=== PATIENT | female | born 1990 | race Caucasian/White ===

== ENCOUNTER 2016-11-03 16:23 | Emergency (ER) | payer BC, OTHER ==
[~2016-11-03] VITALS: Ht 177.8 cm; Wt 94.0 kg
[~2016-11-03 16:23] MED LIST: ASPI-390 PO; BUSP15TA70 PO; INSDGI SC; LAMO100T PO; LAMO200T38 PO; NAPR-1169 PO; NRT25 PO; PEDICHW50 PO; PROM25TA16 PO; ZONI100C2 PO
[2016-11-03 16:35] VITALS: TEMP 36.8; Ht 177.8 cm; Wt 94.0 kg
[2016-11-03] MEDS ORDERED: PNC/500 PO (16:57)
[2016-11-03] MEDS ORDERED: ESCI1TAB6 PO (16:59)
[2016-11-03] MEDS ORDERED: ONDANSETRON INJ 2 MG/ML 2 ML VIAL IV STA (17:20)
[2016-11-03] MEDS ORDERED: MoRPHine SULFATE 4 MG/ML 1 ML CARP\\VIAL IV STA (17:20)
[2016-11-03] MEDS ORDERED: XYLOCAINE 1%/SOD BICARB 20 ML VIAL INFIL STA (17:26)
[2016-11-03] MEDS ORDERED: HMLI SC (17:26)
--- NOTE | 2016-11-03 17:42 | EMERGENCY ROOM VISIT NOTE ---
History First contact with patient: 16:51 Chief Complaint: WOUND INFECTION Stated Complaint: CYST ON BOTTOM OF SPINE, VERY PAINFUL Nursing Triage Summary: abcess on the buttock History of Present Illness The patient is a 26 year old female who presents to the Emergency Room via private vehicle with complaints of "cyst on one of spine, very painful". The patient states that 3 days ago she started with a small quarter-sized reddened region on her tailbone region. She has no previous history of cysts. She tried hot compress minimal relief. She went to acute care yesterday and was prescribed Augmentin but has not picked it up yet. She's been taking penicillin from a previous infection. She's been trying ibuprofen and Tylenol with minimal relief. The pain has worsened over the last day and believes it may need to be drained at this point. She rates the pain as a 9/10 and worse with sitting. She denies any fevers, chills, nausea, vomiting, diarrhea. Review of Systems A complete 10-point Review of Systems was discussed with the patient, with pertinent positives and negatives listed in the History of Present Illness. All remaining Review of Systems questions can be considered negative unless otherwise specified. Past Medical/Surgical History Medical Problems: (1) Diabetes (2) Migraines (3) Seizures Surgical Problems: (1) H/O: Family History FH: multiple sclerosis Social History Smoking Status: Never Smoker Drug Use: none Marital Status: Housing Status: lives with significant other Occupation Status: employed Current/Historical Medications Scheduled Iitnpyj-Gmghfieskztwd-Znkbsyii (Excedrin Migraine), 1 TAB PO UD Cephalexin Monohydrate (Keflex), 500 MG PO QID Escitalopram Oxalate (Lexapro), 5 MG PO DAILY Insulin Glargine (Lantus), 22 UNITS SC QPM Insulin Lispro (Humalog), 0 SC WM Lamotrigine (Lamictal), 400 MG PO BID Lamotrigine (Lamictal), 100 MG PO BID Naproxen (Naprosyn), 500 MG PO q 4-6 hrs prn Nortriptyline HCl (Nortriptyline HCl), 75 MG PO DAILY Penicillin V Potassium (Penicillin V Potassium), 500 MG PO QID Sulfa/Trimethoprim (Bactrim Ds 800MG/160MG), 1 TAB PO BID Zonisamide (Zonegran), 300 MG PO DAILY Scheduled PRN Promethazine HCl (Promethazine HCl), 25 MG PO Q4H PRN for Nausea or Vomiting Allergies Coded Allergies: Fluoxetine (Verified Allergy, Mild, HIVES, 11/12/15) Sertraline (Verified Allergy, Mild, HIVES, 11/12/15) Physical Exam Vital Signs Date Time Temp Pulse Resp B/P Pulse Ox O2 Delivery O2 Flow Rate FiO2 11/03/16 19:11 98 16 107/80 98 Room Air 11/03/16 16:35 36.8 102 20 134/75 99 Room Air Physical Exam VITAL SIGNS - Vital signs and nursing notes were reviewed. Patient is afebrile , normotensive, she is tachycardic at a rate of 102 bpm this saturating on room air 99%. GENERAL -26-year-old female appearing her stated age who is in no acute distress. Communicates well with provider and answers questions appropriately. SKIN - Without rashes. There is a small localized area of erythema at the superior portion of the gluteal region that is midline. This region is slightly fluctuant. HEAD - NC/AT. EYES - PERRL with EOMI bilaterally. Sclera anicteric. Palpebral conjunctiva pink and moist with no injection noted. EARS - No deformities of external structures noted on gross examination bilaterally. NOSE - Midline and without cyanosis. No epistaxis or purulent drainage noted. Septum midline without deviation or septal hematoma noted. MOUTH/OROPHARYNX - Without perioral cyanosis. LUNGS - Chest wall symmetric without accessory muscle use, intercostals retractions, or central cyanosis. Normal vesicular breath sounds CTA B/L. No wheezes, rales, or rhonchi appreciated. CARDIAC - RRR with S1/S2. No murmur, rubs, or gallops appreciated. Medical Decision & Procedures Laboratory Results 11/03/16 17:30 Red Blood Count 4.00, Mean Corpuscular Volume 90.3, Mean Corpuscular Hemoglobin 31.8, Mean Corpuscular Hemoglobin Concent 35.2, Mean Platelet Volume 9.2, Neutrophils (%) (Auto) 75.4, Lymphocytes (%) (Auto) 16.0, Monocytes (%) (Auto) 8.4, Eosinophils (%) (Auto) 0.0, Basophils (%) (Auto) 0.0, Neutrophils # (Auto) 6.64, Lymphocytes # (Auto) 1.41, Monocytes # (Auto) 0.74, Eosinophils # (Auto) 0.00, Basophils # (Auto) 0.00 11/03/16 17:30 Test 11/03/16 17:30 White Blood Count 8.81 K/uL (4.8-10.8) Red Blood Count 4.00 M/uL (4.2-5.4) Hemoglobin 12.7 g/dL (12.0-16.0) Hematocrit 36.1 % (37-47) Mean Corpuscular Volume 90.3 fL (80-100) Mean Corpuscular Hemoglobin 31.8 pg (25-34) Mean Corpuscular Hemoglobin Concent 35.2 g/dl (32-36) Platelet Count 319 K/uL (130-400) Mean Platelet Volume 9.2 fL (7.4-10.4) Neutrophils (%) (Auto) 75.4 % Lymphocytes (%) (Auto) 16.0 % Monocytes (%) (Auto) 8.4 % Eosinophils (%) (Auto) 0.0 % Basophils (%) (Auto) 0.0 % Neutrophils # (Auto) 6.64 K/uL (1.4-6.5) Lymphocytes # (Auto) 1.41 K/uL (1.2-3.4) Monocytes # (Auto) 0.74 K/uL (0.11-0.59) Eosinophils # (Auto) 0.00 K/uL (0-0.5) Basophils # (Auto) 0.00 K/uL (0-0.2) RDW Standard Deviation 39.6 fL (36.4-46.3) RDW Coefficient of Variation 12.1 % (11.5-14.5) Immature Granulocyte % (Auto) 0.2 % Immature Granulocyte # (Auto) 0.02 K/uL (0.00-0.02) Anion Gap 7.0 mmol/L (3-11) Est Creatinine Clear Calc Drug Dose 111.7 ml/min Estimated GFR () 96.4 Estimated GFR (Non- 83.1 BUN/Creatinine Ratio 12.9 (10-20) Calcium Level 8.7 mg/dl (8.5-10.1) Total Bilirubin 0.2 mg/dl (0.2-1) Aspartate Amino Transf (AST/SGOT) 12 U/L (15-37) Alanine Aminotransferase (ALT/SGPT) 27 U/L (12-78) Alkaline Phosphatase 84 U/L (45-117) Total Protein 7.3 gm/dl (6.4-8.2) Albumin 3.9 gm/dl (3.4-5.0) Globulin 3.4 gm/dl (2.5-4.0) Albumin/Globulin Ratio 1.1 (0.9-2) Medications Administered Medications (Trade) Dose Ordered Sig/Jewels Route Start Time Stop Time Status Last Admin Dose Admin Morphine Sulfate (MoRPHine SULFATE INJ) 4 mg NOW STAT IV 11/03/16 17:20 11/03/16 17:22 DC 11/03/16 17:51 4 MG Ondansetron HCl (Zofran Inj) 4 mg NOW STAT IV 11/03/16 17:20 11/03/16 17:22 DC 11/03/16 17:51 4 MG Cephalexin Monohydrate (Keflex Cap) 500 mg NOW STAT PO 11/03/16 17:49 11/03/16 17:51 DC 11/03/16 19:14 500 MG Trimethoprim/ Sulfamethoxazole (Septra Ds 800/ 160MG Tab) 1 tab NOW STAT PO 11/03/16 17:49 11/03/16 17:51 DC 11/03/16 19:14 1 TAB Cephalexin Monohydrate (Keflex 500MG Home Pack) 1 homepack NOW STAT PO 11/03/16 18:55 11/03/16 18:56 DC 11/03/16 19:14 1 HOMEPACK Trimethoprim/ Sulfamethoxazole (Sulfameth/ Trimeth Ds 800/ 160MG Home Pack) 1 homepack UD STAT PO 11/03/16 18:55 11/03/16 18:56 DC 11/03/16 19:14 1 HOMEPACK Oxycodone HCl (Roxicodone Immediate Rel 5MG Home Pack) 1 homepack UD STAT PO 11/03/16 18:56 11/03/16 18:57 DC 11/03/16 19:14 1 HOMEPACK Medical Decision Patient was seen and evaluated as above. After obtaining a thorough history and physical examination IV access was obtained and a CBC, CMP were obtained secondary to subjective and objective examination findings. CBC revealed no leukocytosis but slight anemia. 4 I was slightly high and AST was slightly low. No evidence of kidney or liver failure. The patient is afebrile with no leukocytosis. Clinically she has a pilonidal cyst that may be an abscess. Patient wanted pain medications prior to initiation of drainage therefore morphine and Zofran were provided. Benefits versus risks of incision and drainage were discussed with the patient. She consented. A timeout was performed and the region was prepped with Betadine. It was sterilely draped. 1 % buffered lidocaine was used to create a wheel overlying the region of induration. An 11 blade scalpel was then used to create a 1 cm linear laceration along the region. Pressure was applied and a large amount of purulent pus was expelled. This was cultured and sent to the lab. The region was then opened up further using blunt dissection. Patient tolerated this well. The region was packed with sterile packing. This was secured with tape. Region was then dressed with to Telfa pads and an abdominal pad. This was secured in place with tape. Patient was given Keflex and Bactrim here with the remainder of the prescription sent home. She was given a home pack as her pharmacy was closed. She is to take Keflex and Bactrim for 10 days. She is to return in 48 hours for a recheck of the region. Total induration/erythema is approximately 3 cm x 3 cm. She was educated upon worrisome symptoms in which to return, had questions answered prior to discharge and was discharged home in good condition. It is to note that the patient's glucose levels had been well maintained as per patient. She was given 1 OxyIR home pack for pain. In the evaluation and treatment of this patient the following differential diagnoses were entertained: Pilonidal abscess, phlegmon, cellulitis, among others. [place] Drug Monitoring Program Search Results: patient reviewed within database, no issues identified Impression Primary Impression: Pilonidal abscess Departure Information Dispostion Home / Self-Care Condition GOOD Prescriptions Sulfa/Trimethoprim (Bactrim Ds 800MG/160MG) Tab 1 TAB PO BID for 9 Days, #18 TAB Prov: Abdirizak Dsouza PA-C 11/03/16 Cephalexin Monohydrate (Keflex) 500 Mg Cap 500 MG PO QID for 9 Days, #36 CAP Prov: Abdirizak Dsouza PA-C 11/03/16 Referrals Dayana Moeller C.R.N.P (PCP) Patient Instructions [facility] Additional Instructions You were seen in the emergency department for a pilonidal abscess. You have received pain medication today which makes illegal to drive today. You have been given a short-term supply of OxyIR. This is a pain medication and you may not drive while on this medication. Your blood work here revealed a slightly anemic with a blood cell count of 4.0. Please follow up with your family doctor regarding this. You are AST was low at 12 and the chloride was elevated at 108. These are not significant findings but it is suggested to follow-up with her family doctor regarding this. You have been given your first dose here as well as a 24-hour supply for both. The remaining 9 days was sent to your pharamcy. Keflex. This is 500 mg 4 times daily for 10 days. You have also been prescribed Bactrim. This is one tablet twice daily for 10 days. Both of these are antibiotics. Please return here to the emergency department in 48 hours for recheck or sooner if you develop any fevers or concerning symptoms. Please leave the packing in place until you're here in [address] an absorbent pad over this region as it will drain. Please take care when showering so as to not soak this area. You may use Tylenol and ibuprofen according to package insert for pain. Please follow up with her family doctor from today's visit. Please return to emergency department with any new/concerning symptoms.
[2016-11-03] MEDS ORDERED: SULFAMETHOXAZOLE/TRIMETHOPRIM DS 800/160MG TAB PO STA (17:49)
[2016-11-03] MEDS ORDERED: CEPHALEXIN MONOHYDRATE 250 MG CAP PO STA (17:49)
[2016-11-03 17:50] LABS: COMPLETE YES; HEMATOCRIT 36.1 % (37-47); IG% 0.2 %; LYMPH ABS # 1.41 K/uL (1.2-3.4); MEAN CELL VOLUME 90.3 fL (80-100); MEAN CORPUSCULAR HEMOGLOBIN 31.8 pg (25-34); MEAN CORPUSCULAR HGB CONC 35.2 g/dl (32-36); MEAN PLATELET VOLUME 9.2 fL (7.4-10.4); MONO % 8.4 %; NEUT % 75.4 %; PLATELET COUNT 319 K/uL (130-400); WHITE BLOOD COUNT 8.81 K/uL (4.8-10.8)
[2016-11-03 18:07] LABS: BUN/CREATININE RATIO 12.9 (10-20); CALCIUM 8.7 mg/dl (8.5-10.1); CREATININE 0.94 mg/dl (0.60-1.20); POTASSIUM 3.8 mmol/L (3.5-5.1)
[2016-11-03 18:10] LABS: ALB/GLOB RATIO 1.1 (0.9-2)
[2016-11-03] MEDS ORDERED: CEPHALEXIN 500MG HOME PACK 1 EA BTL PO STA (18:55)
[2016-11-03] MEDS ORDERED: SEPTRA DS HOME PACK 1 EA VIAL PO STA (18:55)
[2016-11-03] MEDS ORDERED: OXYCODONE IR HOME PACK PO STA (18:56)
[2016-11-03] MEDS ORDERED: CEPH500C PO (18:57)
[2016-11-03] MEDS ORDERED: SULF800T23 PO (18:57)
[2016-11-03 19:11] VITALS: BP 107/80; PULSE 98; O2SAT 98
== END 2016-11-03 19:16 | disposition home or self-care (01) ==
LOC: C.EDB 16:25 → C.EDD 19:16
DX: L05.01 Pilonidal cyst with abscess (principal); E11.9 Type 2 diabetes mellitus without complications; G43.909 Migraine, unspecified, not intractable, without status migrainosus; Z79.4 Long term (current) use of insulin; Z79.899 Other long term (current) drug therapy

== ENCOUNTER 2016-11-05 12:26 | Emergency (ER) | payer OTHER ==
[~2016-11-05] VITALS: Ht 177.8 cm; Wt 93.4 kg
[~2016-11-05 12:26] MED LIST changes: -BUSP15TA70 PO; +CEPH500C PO; +ESCI1TAB6 PO; +HMLI SC; -PEDICHW50 PO; +PNC/500 PO; +SULF800T23 PO
[2016-11-05 12:32] VITALS: TEMP 36.8; Ht 177.8 cm; Wt 93.4 kg
[2016-11-05 12:58] VITALS: BP 110/73; PULSE 91; O2SAT 98
--- NOTE | 2016-11-05 21:14 | EMERGENCY ROOM VISIT NOTE ---
ED Visit Note First contact with patient: 12:37 CHIEF COMPLAINT: Abscess recheck. HISTORY OF PRESENT ILLNESS: Ms. Esteves is a 26-year-old white female who ambulates into the ED requesting recheck of her abscess and packing removal from an I&D procedure that was performed 2 days ago. She reports since the procedure she's been feeling much better. She has not been having any pain, swelling, redness or drainage from the wound. She has not perceived any fevers. PHYSICAL EXAM: Vital Signs: Date Time Temp Pulse Resp B/P Pulse Ox O2 Delivery O2 Flow Rate FiO2 11/05/16 12:58 91 18 110/73 98 11/05/16 12:32 36.8 91 18 110/73 98 Room Air GENERAL: 26 year-old white female in no acute distress, nontoxic-appearing, afebrile and hemodynamically stable. NEUROLOGICAL: Awake, alert and oriented. Answering questions appropriately and following commands. Normal gait. Good hand eye coordination. SKIN: Superior Gluteal Region: Obvious pilonidal abscess I&D procedure was performed. There is no local erythema, edema, lymphangitis. The area is still mildly indurated but is not fluctuant. The packing was removed and a small amount of purulent drainage was expressed. A bandage was placed over the wound. ED COURSE: Patient is assessed as noted above. As previously noted packing was easily removed. I did review the patient's microbiology report and no bacteria was cultured from her sample. Patient was educated about tonight's findings and instructed on her treatment plan; she verbalizes understanding and agreement with this plan. DISPOSITION: Patient discharged home in stable condition. CLINICAL IMPRESSION: Well healing abscess. Packing removal. PLAN: Continue antibiotics until completed. Follow-up with family doctor at the end of the antibiotics for recheck. Continue to watch the area for increasing signs of infection. Return to the ED for increasing signs of infection or any new/concerning symptoms.
== END 2016-11-05 12:59 | disposition home or self-care (01) ==
LOC: C.EDB 12:29 → C.EDD 12:59
DX: L02.31 Cutaneous abscess of buttock (principal); Z48.00 Encounter for change or removal of nonsurgical wound dressing

== ENCOUNTER 2017-07-20 11:29 | Emergency (ER) | payer OTHER ==
[~2017-07-20] VITALS: Ht 177.8 cm; Wt 84.0 kg
[~2017-07-20 11:29] MED LIST changes: -CEPH500C PO; -SULF800T23 PO
[2017-07-20 11:34] VITALS: TEMP 37; Ht 177.8 cm; Wt 84.0 kg
[2017-07-20] MEDS ORDERED: ZONI100C39 PO (12:25)
[2017-07-20] MEDS ORDERED: LAMO200T38 PO ×2 (12:25)
[2017-07-20] MEDS ORDERED: INSDGI SC (12:25)
[2017-07-20] MEDS ORDERED: INSU100I SC (12:25)
[2017-07-20] MEDS ORDERED: LAMO100T PO (12:25)
[2017-07-20 13:05] LABS: BASO % 0.1 %; BASO ABS # 0.01 K/uL (0-0.2); COMPLETE YES; HEMATOCRIT 39.7 % (37-47); IG% 0.4 %; LYMPH % 5.3 %; LYMPH ABS # 0.63 K/uL (1.2-3.4); MEAN CORPUSCULAR HEMOGLOBIN 32.5 pg (25-34); MEAN CORPUSCULAR HGB CONC 36.5 g/dl (32-36); MEAN PLATELET VOLUME 10.1 fL (7.4-10.4); MONO % 5.5 %; NEUT % 88.7 %; PLATELET COUNT 292 K/uL (130-400); RED BLOOD COUNT 4.46 M/uL (4.2-5.4)
[2017-07-20 13:09] LABS: PARTIAL THROMBOPLASTIN RATIO 0.9; PROTHROMBIN TIME (PATIENT) 10.3 SECONDS (9.0-12.0)
[2017-07-20 13:13] LABS: BUN/CREATININE RATIO 20.4 (10-20); CALCIUM 8.9 mg/dl (8.5-10.1); CREATININE 1.2 mg/dl (0.60-1.20); MAGNESIUM 2.4 mg/dl (1.8-2.4); POTASSIUM 3.8 mmol/L (3.5-5.1)
[2017-07-20] MEDS ORDERED: ACETAMINOPHEN 325 MG TAB PO STA (13:13)
[2017-07-20] MEDS ORDERED: LORAZEPAM 1 MG TAB PO STA (13:13)
[2017-07-20 13:16] LABS: PREG INTERNAL NEGATIVE QC NEG CLEAR BACKGROUND; PREG INTERNAL POSITIVE QC POS CONTROL LINE
[2017-07-20 13:24] LABS: BETA-HYDROXYBUTYRATE 12.08 mg/dL (0.2-2.81)
[2017-07-20] MEDS ORDERED: NovoLOG PER UNIT CHARGE SC STA (13:29)
[2017-07-20 13:34] LABS: URINE APPEARANCE CLOUDY (CLEAR); URINE BILIRUBIN NEG (NEG); URINE COLOR YELLOW; URINE EPITHELIAL CELL AUTO >30 /lpf (0-5); URINE NITRITE NEG (NEG); URINE SPECIFIC GRAVITY 1.035 (1.000-1.030); UROBILINOGEN NEG (NEG)
--- NOTE | 2017-07-20 13:36 | DIAGNOSTIC IMAGING REPORT ---
HEAD WITHOUT CONTRAST (CT) CLINICAL HISTORY: 27 years-old Female with eval for bleed. Acute seizure. Initial exam. TECHNIQUE: Multiple axial CT images of the head were obtained without contrast. A dose lowering technique was utilized adhering to the principles of ALARA. CT DOSE: 991.30 mGy.cm COMPARISON: CT head 02/25/2015. FINDINGS: No acute intracranial hemorrhage, midline shift, mass, large territorial ischemia or abnormal extra-axial collection. The calvarium is intact. The paranasal sinuses, mastoid air cells, and middle ear cavities are clear. IMPRESSION: No acute intracranial abnormality. The above report was generated using voice recognition software. It may contain grammatical, syntax or spelling errors. Electronically signed by: Juaquin Angel M.D. 07/20/2017 1:35 PM Dictated Date/Time: 07/20/2017 1:33 PM
[2017-07-20 13:38] LABS: MANUAL MICROSCOPIC REQUIRED? NO; REVIEW REQ? NO
--- NOTE | 2017-07-20 13:42 | DIAGNOSTIC IMAGING REPORT ---
CERVICAL SPINE W/O CLINICAL HISTORY: 27 years-old Female with eval for fx. Acute neck injury status post seizure COMPARISON: CT head and maxillofacial same day, chest radiographs to 11/25/2015. TECHNIQUE: Multiple axial CT images of the cervical spine were obtained without contrast. A dose lowering technique was utilized adhering to the principles of ALARA. FINDINGS: There is straightening of the normal cervical lordosis. Mild anterior wedging of 25% is seen within the C7 vertebral body with central depression suggesting a Schmorl's node. Mild intervertebral disc space narrowing is also seen posteriorly at C6-C7 with small posterior disc osteophyte complex. No retropulsion at this level. No high-grade central canal or foraminal narrowing. Vertebral body heights are otherwise well-maintained without additional abnormality identified. Mastoid air cells and middle ear cavities are clear. Lung apices appear clear. Soft tissues are unremarkable. IMPRESSION: 1. 25% anterior endplate compression with Schmorl's node involving the superior endplate of C7 is noted without retropulsion, technically this finding is age indeterminate without comparison however appears chronic. Mild intervertebral disc space narrowing is seen posteriorly at C6-C7 with small disc osteophyte complex. 2. No high-grade central canal or foraminal narrowing. 3. Straightening of the normal cervical lordosis may be positional or related to paraspinal muscle spasm. The above report was generated using voice recognition software. It may contain grammatical, syntax or spelling errors. Electronically signed by: Juaquin Angel M.D. 07/20/2017 1:41 PM Dictated Date/Time: 07/20/2017 1:35 PM
--- NOTE | 2017-07-20 13:43 | DIAGNOSTIC IMAGING REPORT ---
MAXILLOFACIAL CT CT DOSE: HISTORY: Seizures. Fall. TECHNIQUE: Multiaxial CT images of the maxillofacial region were performed and reformatted in the coronal plane without the use of contrast. A dose lowering technique was utilized adhering to the principles of ALARA. COMPARISON: None. FINDINGS: The visualized cervical spine, skull base, pterygoid plates, nasal bones, lamina papyracea, orbital floors, mandible, and zygomatic arches are intact. No fractures. The orbits are unremarkable. Right facial soft tissue swelling. IMPRESSION: No fractures within the maxillofacial region. Right facial soft tissue swelling. Electronically signed by: Joshua Nolan M.D. 07/20/2017 1:42 PM Dictated Date/Time: 07/20/2017 1:34 PM
[2017-07-20] MEDS ORDERED: XYLOCAINE 1%/SOD BICARB 20 ML VIAL INFIL ONE (16:30)
[2017-07-20] MEDS ORDERED: AMOX875T PO (17:01)
[2017-07-20 17:15] VITALS: BP 108/59; PULSE 96; O2SAT 100
--- NOTE | 2017-07-20 18:47 | EMERGENCY ROOM VISIT NOTE ---
History Report prepared by Marta: Karli Mejia Under the Supervision of: Dr. Can Noble M.D. First contact with patient: 12:40 Chief Complaint: SEIZURE Stated Complaint: SEIZURE DISORDER, 3 SEIZURES IN 12 HOURS Nursing Triage Summary: Pt presents with dad who reports hx of seizures. Hasn't had a seizure in 3 yrs. Has had 3 seizures in the past 14 hrs, last seizure was 3 hrs ago. H/A, nausea/vomiting, hit right side of face, bit side of tongue. History of Present Illness The patient is a 27 year old female who presents to the Emergency Room with complaints of multiple episodes of seizures since 10pm last night. The patient has a history of epilepsy and takes Lamictal and Zonegran. She has not had a seizure in 3 years. She denies any recent changes to her medications. Last night around 10pm the patient had a seizure, which her father states was a tonic -clonic seizure. This is typical for her seizures. She was seated and did not injure herself at that time. Around 2am the patient had another seizure and she fell and hit her face against a dresser. She also bit her tongue. This morning around 8:30am the patient had a third seizure. Each seizure lasted for about 2 minutes and father states that were all full tonic-clonic seizures. She was confused after each seizure but was not incontinent of urine or stool. The patient states that she has been nauseated and has been vomiting since her seizures. She also reports a headache and some neck pain that she rates as a 7/ 10 in severity. They called her neurologist's office (Dr. Mckeon) and were told to come to the ED for further evaluation. The patient did not take her seizure medications last night after the first seizure. She did take two doses today after her third seizure. She threw up her Lamictal 400 mg but did take 400 mg after that. She did keep down her Zonegran. The patient denies dental pain, chest pain, abdominal pain, diarrhea, urinary symptoms, hip pain, extremity pain , and chance of . Her immunizations are up to date. Source of History: patient Onset: last night Position: other (global) Symptom Intensity: 7/10 Quality: other (seizures - tonic-clonic) Timing: other (multiple episodes) Associated Symptoms: + headache, + neck pain, + nausea, + vomiting, No chest pain, No abdominal pain, No diarrhea, No urinary symptoms Review of Systems See HPI for pertinent positives & negatives. A total of 10 systems reviewed and were otherwise negative. Past Medical & Surgical Medical Problems: (1) Diabetes (2) Migraines (3) Seizures Surgical Problems: (1) H/O: Family History FH: multiple sclerosis Social History Smoking Status: Never Smoker Drug Use: none Marital Status: Housing Status: lives with significant other Occupation Status: employed Current/Historical Medications Scheduled Amoxicillin & Pot Clavulanate (Augmentin 875-125 mg), 875 MG PO BID Insulin Glargine (Lantus), 24 UNITS SC DAILY Insulin Lispro (Human) (Humalog), SC UD Lamotrigine (Lamictal), 200 MG PO QAM Lamotrigine (Lamictal), 600 MG PO QPM Lamotrigine (Lamictal), 100 MG PO QAM Zonisamide (Zonegran), 300 MG PO QPM Allergies Coded Allergies: Fluoxetine (Verified Allergy, Mild, HIVES, 07/20/17) Sertraline (Verified Allergy, Mild, HIVES, 07/20/17) Physical Exam Vital Signs Date Time Temp Pulse Resp B/P (MAP) Pulse Ox O2 Delivery O2 Flow Rate FiO2 07/20/17 17:15 96 16 108/59 100 Room Air 07/20/17 16:43 92 20 108/73 100 Room Air 07/20/17 15:15 82 18 102/52 100 Room Air 07/20/17 14:04 90 16 115/64 100 Room Air 07/20/17 13:14 93 18 117/70 100 Room Air 07/20/17 12:18 79 07/20/17 11:34 37.0 93 18 117/69 94 Room Air Physical Exam Constitutional: Vital signs reviewed. Eyes: Pupils are equal round reactive to light. Conjunctiva are noninjected. ENT: Pharynx is clear without erythema or exudate. Mucous membranes are moist. 4 cm laceration to the corner of the mouth on the right side extending into the lower lip past the vermilion border. The laceration over the lip portion demonstrates skin avulsion and a small portion of devitalized tissue. Bruising and tenderness over the right cheek. Mild midline tenderness to the cervical spine without step-off or deformity. Respiratory: Clear to auscultation bilaterally. Breath sounds are equal bilaterally. Cardiovascular: Regular rate and rhythm. No rubs or gallops. GI: Soft, nondistended and nontender. Bowel sounds are present. Musculoskeletal: No peripheral edema. No lower extremity tenderness. Integumentary: No cyanosis. Neurologic: The patient is awake and alert. Cranial nerves II-XII are intact. Motor is 5 out of 5 all extremities. Sensation is intact to light touch all extremities. Normal speech. No pronator drift. Psychiatric: Normal affect. Medical Decision & Procedures ER Provider Diagnostic Interpretation: Radiology results as stated below per my review and the radiologist's interpretation: MAXILLOFACIAL CT CT DOSE: HISTORY: Seizures. Fall. TECHNIQUE: Multiaxial CT images of the maxillofacial region were performed and reformatted in the coronal plane without the use of contrast. A dose lowering technique was utilized adhering to the principles of ALARA. COMPARISON: None. FINDINGS: The visualized cervical spine, skull base, pterygoid plates, nasal bones, lamina papyracea, orbital floors, mandible, and zygomatic arches are intact. No fractures. The orbits are unremarkable. Right facial soft tissue swelling. IMPRESSION: No fractures within the maxillofacial region. Right facial soft tissue swelling. Electronically signed by: Joshua Nolan M.D. 07/20/2017 1:42 PM Dictated Date/Time: 07/20/2017 1:34 PM HEAD WITHOUT CONTRAST (CT) CLINICAL HISTORY: 27 years-old Female with eval for bleed. Acute seizure. Initial exam. TECHNIQUE: Multiple axial CT images of the head were obtained without contrast. A dose lowering technique was utilized adhering to the principles of ALARA. CT DOSE: 991.30 mGy.cm COMPARISON: CT head 02/25/2015. FINDINGS: No acute intracranial hemorrhage, midline shift, mass, large territorial ischemia or abnormal extra-axial collection. The calvarium is intact. The paranasal sinuses, mastoid air cells, and middle ear cavities are clear. IMPRESSION: No acute intracranial abnormality. The above report was generated using voice recognition software. It may contain grammatical, syntax or spelling errors. Electronically signed by: Juaquin Angel M.D. 07/20/2017 1:35 PM Dictated Date/Time: 07/20/2017 1:33 PM CERVICAL SPINE W/O CLINICAL HISTORY: 27 years-old Female with eval for fx. Acute neck injury status post seizure COMPARISON: CT head and maxillofacial same day, chest radiographs to 11/25/2015. TECHNIQUE: Multiple axial CT images of the cervical spine were obtained without contrast. A dose lowering technique was utilized adhering to the principles of ALARA. FINDINGS: There is straightening of the normal cervical lordosis. Mild anterior wedging of 25% is seen within the C7 vertebral body with central depression suggesting a Schmorl's node. Mild intervertebral disc space narrowing is also seen posteriorly at C6-C7 with small posterior disc osteophyte complex. No retropulsion at this level. No high-grade central canal or foraminal narrowing. Vertebral body heights are otherwise well-maintained without additional abnormality identified. Mastoid air cells and middle ear cavities are clear. Lung apices appear clear. Soft tissues are unremarkable. IMPRESSION: 1. 25% anterior endplate compression with Schmorl's node involving the superior endplate of C7 is noted without retropulsion, technically this finding is age indeterminate without comparison however appears chronic. Mild intervertebral disc space narrowing is seen posteriorly at C6-C7 with small disc osteophyte complex. 2. No high-grade central canal or foraminal narrowing. 3. Straightening of the normal cervical lordosis may be positional or related to paraspinal muscle spasm. The above report was generated using voice recognition software. It may contain grammatical, syntax or spelling errors. Electronically signed by: Juaquin Angel M.D. 07/20/2017 1:41 PM Dictated Date/Time: 07/20/2017 1:35 PM Laboratory Results 07/20/17 11:45 Red Blood Count 4.46, Mean Corpuscular Volume 89.0, Mean Corpuscular Hemoglobin 32.5, Mean Corpuscular Hemoglobin Concent 36.5, Mean Platelet Volume 10.1, Neutrophils (%) (Auto) 88.7, Lymphocytes (%) (Auto) 5.3, Monocytes (%) (Auto) 5.5, Eosinophils (%) (Auto) 0.0, Basophils (%) (Auto) 0.1, Neutrophils # (Auto) 10.65, Lymphocytes # (Auto) 0.63, Monocytes # (Auto) 0.66, Eosinophils # (Auto) 0.00, Basophils # (Auto) 0.01 07/20/17 11:45 Test 07/20/17 11:45 07/20/17 12:50 07/20/17 15:34 07/20/17 15:41 White Blood Count 12.00 K/uL (4.8-10.8) Red Blood Count 4.46 M/uL (4.2-5.4) Hemoglobin 14.5 g/dL (12.0-16.0) Hematocrit 39.7 % (37-47) Mean Corpuscular Volume 89.0 fL (80-100) Mean Corpuscular Hemoglobin 32.5 pg (25-34) Mean Corpuscular Hemoglobin Concent 36.5 g/dl (32-36) Platelet Count 292 K/uL (130-400) Mean Platelet Volume 10.1 fL (7.4-10.4) Neutrophils (%) (Auto) 88.7 % Lymphocytes (%) (Auto) 5.3 % Monocytes (%) (Auto) 5.5 % Eosinophils (%) (Auto) 0.0 % Basophils (%) (Auto) 0.1 % Neutrophils # (Auto) 10.65 K/uL (1.4-6.5) Lymphocytes # (Auto) 0.63 K/uL (1.2-3.4) Monocytes # (Auto) 0.66 K/uL (0.11-0.59) Eosinophils # (Auto) 0.00 K/uL (0-0.5) Basophils # (Auto) 0.01 K/uL (0-0.2) RDW Standard Deviation 38.4 fL (36.4-46.3) RDW Coefficient of Variation 11.9 % (11.5-14.5) Immature Granulocyte % (Auto) 0.4 % Immature Granulocyte # (Auto) 0.05 K/uL (0.00-0.02) Prothrombin Time 10.3 SECONDS (9.0-12.0) Prothromb Time International Ratio 1.0 (0.9-1.1) Activated Partial Thromboplast Time 24.6 SECONDS (21.0-31.0) Partial Thromboplastin Ratio 0.9 Anion Gap 8.0 mmol/L (3-11) Est Creatinine Clear Calc Drug Dose 82.3 ml/min Estimated GFR () 71.2 Estimated GFR (Non- 61.5 BUN/Creatinine Ratio 20.4 (10-20) Calcium Level 8.9 mg/dl (8.5-10.1) Magnesium Level 2.4 mg/dl (1.8-2.4) Total Bilirubin 0.6 mg/dl (0.2-1) Direct Bilirubin 0.1 mg/dl (0-0.2) Aspartate Amino Transf (AST/SGOT) 29 U/L (15-37) Alanine Aminotransferase (ALT/SGPT) 38 U/L (12-78) Alkaline Phosphatase 107 U/L (45-117) Total Protein 8.1 gm/dl (6.4-8.2) Albumin 4.6 gm/dl (3.4-5.0) Beta-Hydroxybutyric Acid 12.08 mg/dL (0.2-2.81) Human Chorionic Gonadotropin, Qual NEG (NEG) Urine Color YELLOW Urine Appearance CLOUDY (CLEAR) Urine pH 5.0 (4.5-7.5) Urine Specific Ponce 1.035 (1.000-1.030) Urine Protein NEG (NEG) Urine Glucose (UA) 3+ (NEG) Urine Ketones 2+ (NEG) Urine Occult Blood NEG (NEG) Urine Nitrite NEG (NEG) Urine Bilirubin NEG (NEG) Urine Urobilinogen NEG (NEG) Urine Leukocyte Esterase NEG (NEG) Urine WBC (Auto) 1-5 /hpf (0-5) Urine RBC (Auto) 0-4 /hpf (0-4) Urine Hyaline Casts (Auto) 1-5 /lpf (0-5) Urine Epithelial Cells (Auto) >30 /lpf (0-5) Urine Bacteria (Auto) NEG (NEG) Urine Test NEG (NEG) Bedside Glucose 279 mg/dl (70-90) Laboratory results as reviewed by me. Medications Administered Medications (Trade) Dose Ordered Sig/Jewels Route Start Time Stop Time Status Last Admin Dose Admin Lamotrigine (Lamictal Tab) 400 mg NOW STAT PO 07/20/17 13:13 07/20/17 13:15 DC 07/20/17 13:55 400 MG Lorazepam (Ativan Tab) 1 mg NOW STAT PO 07/20/17 13:13 07/20/17 13:15 DC 07/20/17 13:54 1 MG Acetaminophen (Tylenol Tab) 650 mg NOW STAT PO 07/20/17 13:13 07/20/17 13:15 DC 07/20/17 13:55 650 MG Insulin Aspart (novoLOG PER UNIT) 5 units NOW STAT SC 07/20/17 13:29 07/20/17 13:30 DC 07/20/17 13:29 5 UNITS Procedure Location: right lower lip Total length: 4 cm Complexity: simple Verbal consent was obtained after the risks and benefits were explained. At this time, the risks of the procedure are less than the risks of NOT performing the procedure. A time out was taken and the correct patient and site identified. The target area was anesthetized with 3 ml of 1% lidocaine without epinephrine. Copious irrigation was performed using NSS. The wound was explored for foreign bodies and none found. Minimal debridement of devitalized tissue was performed. The wound edges were approximated using 4, 5-0 Vicryl sutures internally and 3, 5-0 simple interrupted Ethilon sutures over the lip. The vermilion border was carefully approximated. Hemostasis and excellent approximation was achieved. No complications and the patient tolerated the procedure well. ECG Indication: other (seizure) Rate (beats per minute): 85 Rhythm: normal sinus Findings: no acute ischemic change, no ectopy ED Course 1240: The patient was evaluated in room C4. A complete history and physical exam was performed. 1302: I spoke with Dr. Mckeon, the patient's neurologist, regarding her treatment plan. He recommended a dose of Ativan, 400 mg of Lamictal, and her dose of Zonegran if she didn't already take it. She can go home as long as she doesn't have a seizure for the next few hours. She should call the office for follow-up. 1311: I updated the patient. She was able to keep down her dose of Zonegran this morning and does not need another dose. 1313: Tylenol 650 mg PO, Ativan 1 mg PO, Lamotrigine 400 mg PO 1329: Insulin aspart 5 units SC 1458: I spoke with Chelsey Ruiz PA-C with Dr. Rivers of orthopedics. We discussed the patient's case. She felt that there was no need for hospitalization. She recommended putting the patient in a [facility] cervical collar and they will follow-up with the patient in the office next week. 1500: I discussed the treatment plan with the patient and she was placed in a [facility] cervical collar at this time. We filled out the DOT form. 1627: I spoke with the patient about having a neurosurgeon repair her laceration and she prefers that it be done here today. 1630: Lidocaine 3 ml Inj 1630: At this time I performed a laceration repair. Please see the procedure note for further details. I then discussed the results and treatment plan with patient. I answered all pertaining questions that she had. She expressed understanding and verbalized agreement. The patient will be discharged home. Medical Decision This is a 27-year-old female who presents with multiple seizures and facial injury. Differential diagnosis includes breakthrough seizure, intracranial hemorrhage, skull fracture, facial fracture, cervical fracture, medication noncompliance. I did perform a limited focused review of portions of the patient's old chart on the electronic medical record. The patient has had no recent pertinent visits to this hospital. I did evaluate the patient as noted above. The patient had 3 breakthrough seizures over the past 12 hours. Currently she complains of a headache and has facial injuries. IV access was established. The patient was placed on a continuous monitoring analyst. Seizure precautions were observed. Urine test is negative. I did order and personally review the patient's 12- lead EKG as described above. I did order and review the patient's blood work as noted in the electronic medical record. Her white blood cell count is slightly elevated likely secondary to her seizure. She also has mild hyperglycemia. He was given her insulin subcutaneous as she did not have any this morning. I did order a CT of the head, facial bones and cervical spine. I did review the images myself as well as the radiology report as described above. I did repair her lip and intraoral laceration as described above. I did offer to have oral surgery repair it but she and her father were comfortable with me repairing it. I did discuss the case with Dr. Mckeon of neurology. He recommended giving her an additional dose of Lamictal here as well as 1 mg of Ativan and watching her for several hours. He recommended discharge and to have her call the office tomorrow morning for further care. I did treat her with Lamictal and Ativan. She was also given Tylenol for her headache. She was observed here for multiple hours and had no breakthrough seizures. She was discharged in good condition. She was advised to have her sutures removed in 5-6 days over her lip. She was given a prescription for Augmentin to avoid any infection in her mouth or lip. A DOT form was filled out and the patient was advised to not drive or perform any activity that may put herself or others at risk should she have another seizure. She was discharged in good condition. Medication Reconcilliation Current Medication List: was personally reviewed by me Blood Pressure Screening Patient's blood pressure: Normal blood pressure Consults Time Called: [phone] Consulting Physician: Dr. Mckeon Returned Call: [phone] Mckeon, the patient's neurologist, regarding her treatment plan. He recommended a dose of Ativan, 400 mg of Lamictal, and her dose of Zonegran if she didn't already take it. She can go home as long as she doesn't have a seizure for the next few hours. She should call the office for follow-up. Additional Consults: Time Called: [phone] Consulted Physician: Chelsey Ruiz PA-C Returned Call: [phone] Additional Comments: I spoke with Chelsey Ruiz PA-C with Dr. Rivers of orthopedics. We discussed the patient's case. She felt that there was no need for hospitalization. She recommended putting the patient in a [facility] cervical collar and they will follow-up with the patient in the office next week. Impression Primary Impression: Seizures Additional Impressions: Head injury Lip laceration Hyperglycemia Scribe Attestation The scribe's documentation has been prepared under my direct and personally reviewed by me in its entirety. I confirm that the note above accurately reflects all work, treatment, procedures, and medical decision making performed by me. Departure Information Dispostion Home / Self-Care Prescriptions Amoxicillin & Pot Clavulanate (Augmentin 875-125 mg) 1 Tab Tab 875 MG PO BID for 5 Days, #10 TAB Prov: Can Noble M.D. 07/20/17 Referrals Carlitos Mckeon M.D. (MEDICINE) (PCP) Anoop RiversD.OMandy Forms HOME CARE DOCUMENTATION FORM, IMPORTANT VISIT INFORMATION Patient Instructions ED Head Injury Closed, ED Seizure Recurrent, My [facility] Additional Instructions You have been examined and treated today on an emergency basis only. This is not a substitute for, or an effort to provide, complete comprehensive medical care. It is impossible to recognize and treat all injuries or illnesses in a single emergency department visit. It is therefore important that you follow up closely with Dr. Mckeon. Call him in the morning. Also follow up with Dr. Rivers of orthopedics. Return for worsening symptoms or if you develop fever, numbness or weakness on one side of your body, difficulty with her speech or walking, or any other concerning symptoms. Do not engage in any activity that may put yourself or others at risk should you have another seizure. This includes, but is not limited to, driving, taking a bath, climbing heights, swimming or operating heavy machinery Problem Qualifiers Additional Impressions: Head injury Encounter type: initial encounter Qualified Codes: S09.90XA - Unspecified injury of head, initial encounter Lip laceration Encounter type: initial encounter Qualified Codes: S01.511A - Laceration without foreign body of lip, initial encounter
== END 2017-07-20 17:20 | disposition home or self-care (01) ==
LOC: C.EDB 11:30 → C.EDC 17:20
DX: G40.909 Epilepsy, unspecified, not intractable, without status epilepticus (principal); S09.90XA Unspecified injury of head, initial encounter; S01.511A Laceration without foreign body of lip, initial encounter; E11.65 Type 2 diabetes mellitus with hyperglycemia; W06.XXXA Fall from bed, initial encounter; Y92.003 Bedroom of unspecified non-institutional (private) residence as the place of occurrence of the external cause; Y93.84 Activity, sleeping; S00.83XA Contusion of other part of head, initial encounter; G43.909 Migraine, unspecified, not intractable, without status migrainosus; Z82.0 Family history of epilepsy and other diseases of the nervous system; Z79.4 Long term (current) use of insulin

== ENCOUNTER → 2017-09-08 | Outpatient (CLI) | payer OTHER ==
[~2017-09-08] MED LIST changes: -ASPI-390 PO; -ESCI1TAB6 PO; -HMLI SC; +INSU100I SC; -NAPR-1169 PO; -NRT25 PO; -PNC/500 PO; -PROM25TA16 PO; -ZONI100C2 PO; +ZONI100C39 PO
== END | disposition home or self-care (01) ==
LOC: C.PAPS 09:12
PROVIDERS: ATTEND Physician Assistant
DX: Z12.4 Encounter for screening for malignant neoplasm of cervix (principal)

== ENCOUNTER → 2017-09-08 | Outpatient (CLI) | payer OTHER | END | disposition home or self-care (01) | LOC: C.LABSPEC 15:09 | PROVIDERS: ATTEND Physician Assistant | DX: N89.8 Other specified noninflammatory disorders of vagina (principal) ==

== ENCOUNTER → 2017-09-20 | Outpatient (CLI) | payer OTHER ==
--- NOTE | 2017-09-20 15:20 | MAMMOGRAPHY REPORT ---
ULTRASOUND OF LEFT BREAST: 09/20/2017 CLINICAL HISTORY: 27-year-old woman presents with a 2-1/2 week history of a lump she identified in th e left breast. No skin erythema or thickening. No nipple discharge. Family history of breast cance r = paternal grandmother. COMPARISON: No prior exams were available for comparison. FINDINGS: Targeted ultrasound was performed in the area of palpable lump pointed out by the patient, from the approximate 6:30 to 8:00 axes of the left lower inner quadrant, 8 cm from the nipple. On p alpation, there is a 3 x 4 cm very soft mobile mass. On ultrasound in the area of concern, there is sonographically normal tissue and a rib coursing underneath the area of described lump. This is cont ributing to a soft palpable bulge in this location. However, no suspicious solid or cystic mass is s een in the breast parenchyma in the left lower inner quadrant. IMPRESSION: ACR BI-RADS CATEGORY 1: NEGATIVE There is no sonographic evidence of malignancy or other suspicious abnormality to explain a left lowe r inner quadrant breast lump. This is thought to represent a combination of normal soft fibroglandul ar tissue and a coursing rib. Continued clinical monitoring is recommended and biopsy of a clinicall y suspicious mass should not be precluded by negative imaging. These results and recommendations were discussed with the patient at the time of the exam. Elen Castro M.D. ay/:09/20/2017 10:59:30 Cad Programmer: Dr. Elen Castro, [facility] letter sent: Normal 1/2 BI-RADS Code: ACR BI-RADS Category 1: Negative
== END | disposition home or self-care (01) ==
LOC: C.MAMM 10:35
PROVIDERS: ATTEND Physician Assistant
DX: N63.24 Unspecified lump in the left breast, lower inner quadrant (principal)

== ENCOUNTER 2017-12-15 09:31 | Emergency (ER) | payer OTHER ==
[~2017-12-15] VITALS: Ht 175.3 cm; Wt 89.1 kg
[~2017-12-15 09:31] MED LIST changes: -INSDGI SC; -INSU100I SC; -LAMO100T PO; +LAMO200T35 PO; -LAMO200T38 PO; -ZONI100C39 PO
[2017-12-15 09:33] VITALS: TEMP 36.7; Ht 175.3 cm; Wt 89.1 kg
[2017-12-15] MEDS ORDERED: ONDANSETRON INJ 2 MG/ML 2 ML VIAL IV STA (09:43)
[2017-12-15] MEDS ORDERED: SODIUM CHLORIDE 0.9% 1000ML 1,000 ML IV STA (09:43)
[2017-12-15] MEDS ORDERED: KETOROLAC TROMETHAMINE 30 MG/ML VIAL IV STA (09:43)
[2017-12-15] MEDS ORDERED: PIPERACILLIN/TAZOBACTAM 4.5 GM/100ML D5W IV STA (09:48)
--- NOTE | 2017-12-15 09:55 | EMERGENCY ROOM VISIT NOTE ---
History Report prepared by Marta: Trace Kulkarni Under the Supervision of: Dr. Mykel Medrano M.D. First contact with patient: 09:40 Chief Complaint: ABDOMINAL PAIN Stated Complaint: SEVERE ABDOMINAL PAIN, GB REMOVED 8 DAYS AGO Nursing Triage Summary: pt c/o severe, stabbing mid abd pain. denies v/d. some nausea due to the pain. gallbladder removed last week. "different than the gas pains". Óscar Barnhart referred pt here. Tylenol this am History of Present Illness The patient is a 27 year old female who presents to the Emergency Room with complaints of constant generalized abdominal pain beginning 7.5 hours ago. The patient had a cholecystectomy eight days ago. She states that her pain woke up her up from sleep last night. She had no significant pain prior to falling asleep last night. The patient rates her pain as an 11/10 in severity. She describes her pain as "stabbing". She also complains of nausea. The patient's pain was worsened when driving over bumps on the way to the hospital. Sitting still improves her pain. She denies vomiting, urinary symptoms, chills, or fevers. The patient states that her pain feels very different than her pain initially following the surgery. She was unable to eat this morning. Source of History: patient Onset: 7.5 hours ago Position: abdomen (generalized) Symptom Intensity: 11/10 Quality: stabbing Timing: constant Modifying Factors (Worsening): other (driving over bumps in the car) Modifying Factors (Relieving): other (Sitting still) Associated Symptoms: + nausea, No fevers, No chills, No vomiting, No urinary symptoms Review of Systems See HPI for pertinent positives & negatives. A total of 10 systems reviewed and were otherwise negative. Past Medical & Surgical Medical Problems: (1) Diabetes (2) Migraines (3) Seizures Surgical Problems: (1) H/O: Family History FH: multiple sclerosis Social History Smoking Status: Never Smoker Drug Use: none Marital Status: Housing Status: lives with significant other Occupation Status: employed Current/Historical Medications Scheduled Insulin Glargine (Lantus), 24 UNITS SC DAILY Insulin Lispro (Human) (Humalog), SC UD Lamotrigine (Lamictal), 400 MG PO QAM Lamotrigine (Lamictal), 500 MG PO HS Nortriptyline Hcl (Pamelor), 75 MG PO HS Sennosides-Docusate Sodium (Senokot S), 2 TAB PO TID Zonisamide (Zonegran), 200 MG PO QPM Zonisamide (Zonegran), 100 MG PO QAM Scheduled PRN Oxycodone Ir (Roxicodone Ir), 1 TAB PO Q4H PRN for Pain Allergies Coded Allergies: Fluoxetine (Verified Allergy, Mild, HIVES, 07/20/17) Sertraline (Verified Allergy, Mild, HIVES, 07/20/17) Physical Exam Vital Signs Date Time Temp Pulse Resp B/P (MAP) Pulse Ox O2 Delivery O2 Flow Rate FiO2 12/15/17 11:59 84 16 122/75 100 Room Air 12/15/17 10:57 88 16 120/72 100 Room Air 12/15/17 10:36 90 16 119/76 98 Room Air 12/15/17 09:33 36.7 100 16 125/80 99 Room Air Physical Exam GENERAL: Patient is in moderate distress. HEENT: No acute trauma, normocephalic atraumatic, mucous membranes moist, no nasal congestion, no scleral icterus. NECK: No stridor, no adenopathy, no meningismus, trachea is midline. LUNGS: Clear to auscultation bilaterally, no wheeze, no rhonchi, breath sounds equal. HEART: Without murmurs gallops or rubs, regular rate and rhythm. ABDOMEN: Surgical incisions do not show erythema or signs of infection and appear to be healing well. Diffusely tender abdomen with guarding and peritonitis. No distension. EXTREMITIES: No cyanosis or edema, full range of motion of all the joints without pain or difficulty, no signs for acute trauma. NEUROLOGIC: Oriented x 3, no acute motor or sensory deficits, no focal weakness. SKIN: No rash, no jaundice, no diaphoresis. Medical Decision & Procedures ER Provider Diagnostic Interpretation: Radiology results as stated below per my review and radiologist interpretation: ABD/PELVIS IV CONTRAST ONLY FINDINGS: Route Delivery Supervisor topogram: Cholecystectomy clips. Lung bases: Minimal basilar opacities, likely atelectasis. Normal heart size. No pericardial or pleural effusion. Liver: Normal morphology. No liver lesion. Patent hepatic vasculature. Biliary: Mild biliary ductal prominence likely a reservoir effect in the post cholecystectomy state. Gallbladder surgically absent. No fluid collection in the gallbladder fossa. Pancreas: Normal. Spleen: Normal. Adrenal glands: Normal. Kidneys and ureters: Nonobstructing 3 mm calculus at the lower pole right kidney. Punctate nonobstructing calculus at the lower pole the left kidney. Renal parenchyma normal. No hydronephrosis. Bladder: Mild circumferential bladder wall thickening. Pelvic organs: Uterus and ovaries normal. Tampon noted in the vagina. Bowel: Moderate stool burden in the transverse and right colon. No colonic wall thickening. Appendix not visualized. Feces noted in the distal small bowel indicating delayed transit. No bowel obstruction. Minimal high density fluid in the stomach, possibly contrast menstruation. Peritoneal cavity: Small free fluid in the pelvis, possibly physiologic. Lymph nodes: No enlarged lymph nodes in the abdomen or pelvis. Vasculature: Aorta and IVC patent and normal in caliber. Abdominal wall: Diastasis of the rectus abdominis. Port sites noted in the ventral abdomen. Musculoskeletal: Normal. IMPRESSION: 1. Postsurgical changes of cholecystectomy without evidence of complication. No abscess. 2. Small free fluid in the pelvis, possibly physiologic. 3. Moderate stool burden consistent with constipation. 4. Mild circumferential bladder wall thickening could suggest cystitis. Correlate with urinalysis. Electronically signed by: Omero Bee M.D. 12/15/2017 10:49 AM CHEST ONE VIEW PORTABLE FINDINGS: Cardiomediastinal silhouette normal. Lungs and pleural spaces clear. Osseous structures normal. Upper abdomen normal. IMPRESSION: 1. No acute cardiopulmonary disease. Electronically signed by: Omero Bee M.D. 12/15/2017 10:18 AM Laboratory Results 12/15/17 09:50 Red Blood Count 3.84, Mean Corpuscular Volume 90.9, Mean Corpuscular Hemoglobin 32.0, Mean Corpuscular Hemoglobin Concent 35.2, Mean Platelet Volume 9.4, Neutrophils (%) (Auto) 80.2, Lymphocytes (%) (Auto) 12.6, Monocytes (%) (Auto) 6.9, Eosinophils (%) (Auto) 0.0, Basophils (%) (Auto) 0.0, Neutrophils # (Auto) 6.32, Lymphocytes # (Auto) 0.99, Monocytes # (Auto) 0.54, Eosinophils # (Auto) 0.00, Basophils # (Auto) 0.00 12/15/17 09:50 Test 12/15/17 09:50 12/15/17 09:59 12/15/17 11:03 White Blood Count 7.87 K/uL (4.8-10.8) Red Blood Count 3.84 M/uL (4.2-5.4) Hemoglobin 12.3 g/dL (12.0-16.0) Hematocrit 34.9 % (37-47) Mean Corpuscular Volume 90.9 fL (80-100) Mean Corpuscular Hemoglobin 32.0 pg (25-34) Mean Corpuscular Hemoglobin Concent 35.2 g/dl (32-36) Platelet Count 301 K/uL (130-400) Mean Platelet Volume 9.4 fL (7.4-10.4) Neutrophils (%) (Auto) 80.2 % Lymphocytes (%) (Auto) 12.6 % Monocytes (%) (Auto) 6.9 % Eosinophils (%) (Auto) 0.0 % Basophils (%) (Auto) 0.0 % Neutrophils # (Auto) 6.32 K/uL (1.4-6.5) Lymphocytes # (Auto) 0.99 K/uL (1.2-3.4) Monocytes # (Auto) 0.54 K/uL (0.11-0.59) Eosinophils # (Auto) 0.00 K/uL (0-0.5) Basophils # (Auto) 0.00 K/uL (0-0.2) RDW Standard Deviation 40.7 fL (36.4-46.3) RDW Coefficient of Variation 12.3 % (11.5-14.5) Immature Granulocyte % (Auto) 0.3 % Immature Granulocyte # (Auto) 0.02 K/uL (0.00-0.02) Prothrombin Time 10.2 SECONDS (9.0-12.0) Prothromb Time International Ratio 1.0 (0.9-1.1) Activated Partial Thromboplast Time 26.1 SECONDS (21.0-31.0) Partial Thromboplastin Ratio 1.0 Est Creatinine Clear Calc Drug Dose 87.4 ml/min Estimated GFR () 75.8 Estimated GFR (Non- 65.4 BUN/Creatinine Ratio 13.4 (10-20) Calcium Level 9.0 mg/dl (8.5-10.1) Total Bilirubin 0.3 mg/dl (0.2-1) Aspartate Amino Transf (AST/SGOT) 22 U/L (15-37) Alanine Aminotransferase (ALT/SGPT) 41 U/L (12-78) Alkaline Phosphatase 97 U/L (45-117) Total Protein 7.6 gm/dl (6.4-8.2) Albumin 3.7 gm/dl (3.4-5.0) Globulin 3.9 gm/dl (2.5-4.0) Albumin/Globulin Ratio 0.9 (0.9-2) Lipase 83 U/L (73-393) Bedside Hemoglobin 11.9 g/dl (12.0-16.0) Bedside Hematocrit 35 % (37-47) Bedside Sodium 141 mEq/L (135-144) Bedside Potassium 3.9 mEq/L (3.3-5.0) Bedside Chloride 101 mEq/L (101-112) Bedside Total CO2 23 mEq/l (24-31) Anion Gap 21.0 mmol/L (16-25) Bedside Blood Urea Nitrogen 16 mg/dl (7-18) Bedside Creatinine 0.9 mg/dl (0.6-1.3) Bedside Glucose (other) 246 mg/dl (70-99) Bedside Ionized Calcium (Erin) 1.18 mmol/l (1.12-1.32) Urine Color YELLOW Urine Appearance CLEAR (CLEAR) Urine pH 8.0 (4.5-7.5) Urine Specific [place] 1.025 (1.000-1.030) Urine Protein NEG (NEG) Urine Glucose (UA) NEG (NEG) Urine Ketones NEG (NEG) Urine Occult Blood NEG (NEG) Urine Nitrite NEG (NEG) Urine Bilirubin NEG (NEG) Urine Urobilinogen NEG (NEG) Urine Leukocyte Esterase NEG (NEG) Laboratory results reviewed by me. Medications Administered Medications (Trade) Dose Ordered Sig/Jewels Route Start Time Stop Time Status Last Admin Dose Admin Ondansetron HCl (Zofran Inj) 4 mg NOW STAT IV 12/15/17 09:43 12/15/17 09:46 DC 12/15/17 10:14 4 MG Sodium Chloride 1,000 ml @ 999 mls/hr Q1H1M STAT IV 12/15/17 09:43 12/15/17 10:43 DC 12/15/17 09:43 999 MLS/HR Morphine Sulfate (MoRPHine SULFATE INJ) 4 mg Q30M PRN IV 12/15/17 09:45 12/15/17 12:25 DC 12/15/17 10:57 4 MG Ketorolac Tromethamine (Toradol Inj) 30 mg NOW STAT IV 12/15/17 09:43 12/15/17 09:46 DC 12/15/17 10:14 30 MG Piperacillin Sod/ Tazobactam Sod (Zosyn Iv) 4.5 gm NOW STAT IV 12/15/17 09:48 12/15/17 09:49 DC 12/15/17 10:33 4.5 GM Senna/Docusate Sodium (Senokot S Tab) 2 tab NOW ONCE PO 12/15/17 12:00 12/15/17 12:01 DC 12/15/17 11:56 2 TAB ED Course 0941: The patient was evaluated in room B3B. A complete history and physical exam was performed. 0943: Ordered Toradol Inj 30 mg IV, Sodium Chloride 1000 ml @ 999 mls/hr IV, Zofran Inj 4 mg IV. 0945: Ordered Morphine Sulfate 4 mg IV. 0948: Ordered Zosyn 4.5 gm IV. 1144: Reevaluated the patient. She is feeling better and would like to go home. Discussed results and discharge instructions: she verbalized understanding and agreement. The patient is ready for discharge. 1200: Ordered Senokot S Tab 2 tabs PO. Medical Decision The patient is a 27 year old female who presents to the ED with complaints of abdominal pain s/p cholecystectomy eight days ago. Differential diagnoses considered include bowel rupture, peritonitis, bowel obstruction, biliary colic , biliary leak, pancreatitis, UTI, and intraabdominal bleeding. There is no leukocytosis or concerning anemia. No significant electrolyte abnormality, kidney failure, hepatitis or pancreatitis. Urinalysis does not show evidence for infection. There is no coagulopathy. Chest film did not show pneumonia or free air. Abdominal and pelvis CT showed some constipation, no significant fluid in the abdomen, no abscess, no bowel obstruction. No acute surgical process by CT imaging. On my exam, the patient was quite uncomfortable and I did have concerns for peritonitis. Given my concerns, the patient was aggressively managed. She received IV Zosyn as antibiotic coverage. She received IV saline, IV Toradol, IV Zofran and IV morphine. She eventually received oral Senokot. On reexam, the patient's abdomen was soft and there were no longer findings of peritonitis. She has been stable, she feels improved. She would like to be discharged, I think this is reasonable. She was informed that if things are worsening or not continuing to improve as the day goes on that she should return for reassessment and possible hospitalization. At this point, the cause for all her symptoms is unclear. She will try some stool softeners in case constipation is a large part of her issue. [place] Drug Monitoring Program Search Results: patient reviewed within database, no issues identified, see additional documentation Drug Monitoring Findings: 10 Percocet prescribed 12/05 consistent with surgery. Medication Reconcilliation Current Medication List: was personally reviewed by me Blood Pressure Screening Patient's blood pressure: Normal blood pressure Blood pressure disposition: Did not require urgent referral Impression Primary Impression: Diffuse abdominal pain Additional Impressions: S/P cholecystectomy Constipation Scribe Attestation The scribe's documentation has been prepared under my direction and personally reviewed by me in its entirety. I confirm that the note above accurately reflects all work, treatment, procedures, and medical decision making performed by me. Departure Information Dispostion Home / Self-Care Prescriptions Oxycodone Ir (Roxicodone Ir) 5 Mg Tab 1 TAB PO Q4H Y for Pain, #6 TAB Prov: Mykel Medrano M.D. 12/15/17 Sennosides-Docusate Sodium (SENOKOT S) 1 Tab Tab 2 TAB PO TID, #30 TAB Prov: Mykel Medrano M.D. 12/15/17 Referrals Dayana Moeller C.R.N.P (PCP) Forms HOME CARE DOCUMENTATION FORM, IMPORTANT VISIT INFORMATION Patient Instructions My [facility] Additional Instructions may use oxy ir 1 tab as needed every 4 hours for pain senokot S (2 tab) up to 3x per day to help constipation otc pain meds rest fluids return for fever, vomiting, worsening pain be sure to call your surgeon today Problem Qualifiers
[2017-12-15] MEDS ORDERED: OPTIRAY 320 IV PRN (10:00)
[2017-12-15 10:13] LABS: ISTAT CREATININE 0.9 mg/dl (0.6-1.3); ISTAT IONIZED CALCIUM 1.18 mmol/l (1.12-1.32); ISTAT POTASSIUM 3.9 mEq/L (3.3-5.0)
[2017-12-15] MEDS: MoRPHine SULFATE 4 MG/ML 1 ML CARP\\VIAL IV PRN ×2 (10:14→10:57)
[2017-12-15 10:18] LABS: HEMATOCRIT 34.9 % (37-47); HEMOGLOBIN 12.3 g/dL (12.0-16.0); IG# 0.02 K/uL (0.00-0.02); LYMPH % 12.6 %; LYMPH ABS # 0.99 K/uL (1.2-3.4); MEAN CELL VOLUME 90.9 fL (80-100); MEAN CORPUSCULAR HGB CONC 35.2 g/dl (32-36); MEAN PLATELET VOLUME 9.4 fL (7.4-10.4); MONO % 6.9 %; MONO ABS # 0.54 K/uL (0.11-0.59); NEUT % 80.2 %; NEUT ABS # 6.32 K/uL (1.4-6.5); PLATELET COUNT 301 K/uL (130-400); RED CELL DISTRIBUTION WIDTH CV 12.3 % (11.5-14.5); RED CELL DISTRIBUTION WIDTH SD 40.7 fL (36.4-46.3); WHITE BLOOD COUNT 7.87 K/uL (4.8-10.8)
--- NOTE | 2017-12-15 10:19 | DIAGNOSTIC IMAGING REPORT ---
CHEST ONE VIEW PORTABLE CLINICAL HISTORY: 27 years-old Female presenting with ABDOMINAL PAIN/GI. TECHNIQUE: Portable upright AP view of the chest was obtained. COMPARISON: 11/25/2015. FINDINGS: Cardiomediastinal silhouette normal. Lungs and pleural spaces clear. Osseous structures normal. Upper abdomen normal. IMPRESSION: 1. No acute cardiopulmonary disease. Electronically signed by: Omero Bee M.D. 12/15/2017 10:18 AM Dictated Date/Time: 12/15/2017 10:17 AM
[2017-12-15 10:29] LABS: PTT PATIENT 26.1 SECONDS (21.0-31.0)
[2017-12-15 10:40] LABS: ALBUMIN 3.7 gm/dl (3.4-5.0); CREATININE 1.14 mg/dl (0.60-1.20); POTASSIUM 3.8 mmol/L (3.5-5.1)
[2017-12-15 10:43] LABS: TOTAL PROTEIN 7.6 gm/dl (6.4-8.2)
--- NOTE | 2017-12-15 10:50 | DIAGNOSTIC IMAGING REPORT ---
ABD/PELVIS IV CONTRAST ONLY CLINICAL HISTORY: 27 years-old Female presenting with ABD PAIN, POSS abscess or rupture, GB surgery 8 days ago. TECHNIQUE: Multidetector CT of the abdomen and pelvis was performed after the administration of intravenous contrast. IV contrast: 95 mL of Optiray 320. A dose lowering technique was used consistent with the principles of ALARA (as low as reasonably achievable). COMPARISON: None. CT DOSE (mGy.cm): The estimated cumulative dose is 620.70 mGy.cm. FINDINGS: Patient Financial Advocate topogram: Cholecystectomy clips. Lung bases: Minimal basilar opacities, likely atelectasis. Normal heart size. No pericardial or pleural effusion. Liver: Normal morphology. No liver lesion. Patent hepatic vasculature. Biliary: Mild biliary ductal prominence likely a reservoir effect in the post cholecystectomy state. Gallbladder surgically absent. No fluid collection in the gallbladder fossa. Pancreas: Normal. Spleen: Normal. Adrenal glands: Normal. Kidneys and ureters: Nonobstructing 3 mm calculus at the lower pole right kidney. Punctate nonobstructing calculus at the lower pole the left kidney. Renal parenchyma normal. No hydronephrosis. Bladder: Mild circumferential bladder wall thickening. Pelvic organs: Uterus and ovaries normal. Tampon noted in the vagina. Bowel: Moderate stool burden in the transverse and right colon. No colonic wall thickening. Appendix not visualized. Feces noted in the distal small bowel indicating delayed transit. No bowel obstruction. Minimal high density fluid in the stomach, possibly contrast menstruation. Peritoneal cavity: Small free fluid in the pelvis, possibly physiologic. Lymph nodes: No enlarged lymph nodes in the abdomen or pelvis. Vasculature: Aorta and IVC patent and normal in caliber. Abdominal wall: Diastasis of the rectus abdominis. Port sites noted in the ventral abdomen. Musculoskeletal: Normal. IMPRESSION: 1. Postsurgical changes of cholecystectomy without evidence of complication. No abscess. 2. Small free fluid in the pelvis, possibly physiologic. 3. Moderate stool burden consistent with constipation. 4. Mild circumferential bladder wall thickening could suggest cystitis. Correlate with urinalysis. Electronically signed by: Omero Bee M.D. 12/15/2017 10:49 AM Dictated Date/Time: 12/15/2017 10:42 AM
[2017-12-15] MEDS ORDERED: NORT75CA2 PO (11:15)
[2017-12-15] MEDS ORDERED: ZONI100C39 PO ×2 (11:15→12:25)
[2017-12-15] MEDS ORDERED: OXYC1TAB3 PO (11:56)
[2017-12-15] MEDS ORDERED: SENN-65 PO (11:56)
[2017-12-15 11:59] VITALS: BP 122/75; PULSE 84; O2SAT 100
[2017-12-15] MEDS ORDERED: DOCUSATE SODIUM/SENNA 50/8.6MG TAB PO ONE (12:00)
[2017-12-15] MEDS ORDERED: INSU100I SC (12:25)
[2017-12-15] MEDS ORDERED: INSDGI SC (12:25)
[2017-12-15] MEDS ORDERED: LAMO200T35 PO (12:25)
[2017-12-15] MEDS ORDERED: LAMO100T PO (12:25)
[2017-12-15] MEDS ORDERED: MULT-513 PO (21:00)
[2017-12-15] MEDS ORDERED: BISA-16 PO (21:00)
== END 2017-12-15 12:06 | disposition home or self-care (01) ==
LOC: C.EDB 09:32
DX: R10.84 Generalized abdominal pain (principal); Z90.49 Acquired absence of other specified parts of digestive tract; K59.00 Constipation, unspecified; E11.9 Type 2 diabetes mellitus without complications; R56.9 Unspecified convulsions; Z79.4 Long term (current) use of insulin

== ENCOUNTER 2017-12-15 17:29 | Inpatient (IN) | payer OTHER ==
[~2017-12-15] VITALS: Ht 175.3 cm; Wt 87.0 kg
[~2017-12-15 17:29] MED LIST changes: +INSDGI SC; +INSU100I SC; +LAMO100T PO; +NORT75CA2 PO; +OXYC1TAB3 PO; +SENN-65 PO; +ZONI100C39 PO
[2017-12-15] MEDS ORDERED: MoRPHine SULFATE 10 MG/ML CARP/VIAL IV STA (18:01)
[2017-12-15] MEDS ORDERED: ONDANSETRON INJ 2 MG/ML 2 ML VIAL IV STA (18:01)
[2017-12-15] MEDS ORDERED: SODIUM CHLORIDE 0.9% 1000ML 1,000 ML IV STA (18:01)
[2017-12-15 19:04] LABS: HEMATOCRIT 33.4 % (37-47); HEMOGLOBIN 11.7 g/dL (12.0-16.0); MEAN CELL VOLUME 90.8 fL (80-100); MEAN CORPUSCULAR HEMOGLOBIN 31.8 pg (25-34); PLATELET COUNT 279 K/uL (130-400); RED CELL DISTRIBUTION WIDTH CV 12.4 % (11.5-14.5); RED CELL DISTRIBUTION WIDTH SD 41.2 fL (36.4-46.3); WHITE BLOOD COUNT 10.46 K/uL (4.8-10.8)
[2017-12-15] MEDS ORDERED: HYDROmorphone INJ 0.5 MG/0.5 ML SYR IV STA ×3 (19:14→22:19)
[2017-12-15 19:26] LABS: ALBUMIN 3.6 gm/dl (3.4-5.0); CALCIUM 8.5 mg/dl (8.5-10.1); CREATININE 1.04 mg/dl (0.60-1.20); POTASSIUM 3.6 mmol/L (3.5-5.1)
[2017-12-15 19:29] LABS: TOTAL PROTEIN 7.1 gm/dl (6.4-8.2)
[2017-12-15 19:30] LABS: IG# 0.03 K/uL (0.00-0.02); LYMPH % 10.9 %; LYMPH ABS # 1.14 K/uL (1.2-3.4); MONO % 7.1 %; MONO ABS # 0.74 K/uL (0.11-0.59); NEUT % 81.7 %; NEUT ABS # 8.55 K/uL (1.4-6.5)
[2017-12-15] MEDS ORDERED: BISA-16 PO (21:00)
[2017-12-15] MEDS ORDERED: MULT-513 PO (21:00)
[2017-12-15] MEDS ORDERED: OPTIRAY 320 IV PRN (21:45)
--- NOTE | 2017-12-15 21:48 | DIAGNOSTIC IMAGING REPORT ---
CT ABD/PELVIS IV AND ORAL CONT CLINICAL HISTORY: Right upper quadrant abdominal pain. Recent cholecystectomy. COMPARISON STUDY: December 15, 2017 TECHNIQUE: Following the IV administration of 115 mL of Optiray-320, CT scan of the abdomen and pelvis was performed from the lung bases to the proximal femurs. Images are reviewed in the axial, sagittal, and coronal planes. IV contrast was administered without complication. A dose lowering technique was utilized adhering to the principles of ALARA. CT DOSE: 536.14 mGy.cm FINDINGS: Lower chest: There are minor dependent atelectatic changes Liver: The contrast-enhanced liver is normal in size, contour, and attenuation. There is no intrahepatic biliary ductal dilatation. The hepatic veins and portal veins are patent. Gallbladder: There are postsurgical changes are prior cholecystectomy. There is a small amount of fluid within the cholecystectomy bed and in Morison's pouch. The fluid is nonspecific. There are no walled off collections to indicate an abscess. A delayed bile leak cannot be excluded Spleen: Normal in size and attenuation. Pancreas: Unremarkable. Adrenal glands: Unremarkable. Kidneys: There is symmetric renal cortical enhancement. The kidneys are normal in size without hydronephrosis. Bowel: There are no transition zones indicate bowel obstruction. There is no acute diverticulitis. There is mild fecal retention. The appendix is not visualized with certainty. Peritoneum: There is a small amount of free fluid within the pelvis. No free air is visualized. Vasculature: The abdominal aorta is normal in course and caliber. Adenopathy: None. Pelvic viscera: The bladder, and pelvic viscera are unremarkable. A tampon is visualized. Skeletal structures: No destructive osseous lesions are seen. IMPRESSION: 1. No evidence of bowel obstruction. No evidence of free air 2. Surgically absent gallbladder 3. Small amount of fluid within the cholecystectomy bed as well as within Morison's pouch. This appears slightly increased from a study performed earlier in the day. Diagnostic considerations include delayed bile leak, delayed hemorrhage, or infection. There are no walled off collections to indicate an abscess. Electronically signed by: Jono Arias M.D. 12/15/2017 9:46 PM Dictated Date/Time: 12/15/2017 9:39 PM
--- NOTE | 2017-12-15 23:32 | Medical Consult ---
Consultation Date of Consultation: Dec 15, 2017. 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 The patient recently underwent a laparoscopic cholecystectomy at [facility] on 12/07/17. The patient woke up from her sleep this morning with severe pain and initially believed it was 2/2 indigestion so took some tums and tried to go to work in the morning. As the morning progressed she continued to have significant pain, 11/10, sharp, constant, and in the RUQ. CT abdomen this morning only showed constipations with no evidence of obstruction, fluid, or acute infectious process in the abdomen. The patient improved with IV Toradol, Morphine, and Zofran. She was discharged home after feeling improved and her pain resumed after which she took the Percocet prescribed from the ED. The pain continued to progress and the patient returned to the ED. Repeat CT at that time showed some progressive fluid around the cholecystectomy site concerning for possible bile leak. The patient was evaluated by Dr. Silva of surgery and the patient will most likely be taken for a HIDA scan tomorrow. Past Medical/Surgical History Medical Problems: (1) Constipation Status: Acute (2) Diffuse abdominal pain Status: Acute (3) Encounter for recheck of abscess following incision and drainage Status: Acute (4) Pilonidal abscess Status: Acute Social History Problems: (1) S/P cholecystectomy Status: Acute Family History FH: multiple sclerosis Social History Smoking Status: Never Smoker Drug Use: none Marital Status: Housing Status: lives with significant other Occupation Status: employed Allergies Coded Allergies: No Known Allergies (Unverified , 12/15/17) Current Inpatient Medications Current Inpatient Medications Medications (Trade) Dose Ordered Sig/Jewels Route Start Time Stop Time Status Last Admin Dose Admin Ioversol (Optiray 320) 115 ml UD PRN IV 12/15/17 21:45 12/19/17 21:44 Hydromorphone HCl (Dilaudid Inj) 0.5 mg Q2H PRN IV 12/15/17 23:15 12/29/17 23:14 Sodium Chloride 1,000 ml @ 125 mls/hr Q8H IV 12/15/17 23:02 01/14/18 23:01 Review of Systems Constitutional: No fever, No chills, No fatigue Respiratory: No cough, No wheezing, No shortness of breath Cardiovascular: No chest pain, No orthopnea, No PND, No edema Abdomen: + pain (RUQ pain), + nausea, + constipation, No vomiting, No diarrhea , No GI bleeding Neurologic: No memory loss, No numbness/tingling, No vertigo Physical Exam Date Time Temp Pulse Resp B/P (MAP) Pulse Ox O2 Delivery O2 Flow Rate FiO2 12/15/17 21:42 104 18 120/72 100 Room Air 12/15/17 20:54 36.9 106 18 128/79 100 Room Air 12/15/17 19:19 107 28 139/92 99 12/15/17 17:43 36.8 115 18 127/75 98 Room Air General Appearance: WD/WN, + mild distress Head: normocephalic, atraumatic Eyes: normal inspection, sclerae normal Neck: supple, no carotid bruits Respiratory/Chest: chest non-tender, lungs clear, normal breath sounds Cardiovascular: regular rate, rhythm, no edema, no gallop, no murmur Abdomen/GI: normal bowel sounds, soft, + tenderness (RUQ ) Neurologic/Psych: no motor/sensory deficits, alert, normal mood/affect, oriented x 3 Laboratory Results Last 24 Hours Test 12/15/17 18:40 12/15/17 21:01 12/15/17 21:13 White Blood Count 10.46 K/uL Red Blood Count 3.68 M/uL Hemoglobin 11.7 g/dL Hematocrit 33.4 % Mean Corpuscular Volume 90.8 fL Mean Corpuscular Hemoglobin 31.8 pg Mean Corpuscular Hemoglobin Concent 35.0 g/dl Platelet Count 279 K/uL Mean Platelet Volume 9.0 fL Neutrophils (%) (Auto) 81.7 % Lymphocytes (%) (Auto) 10.9 % Monocytes (%) (Auto) 7.1 % Eosinophils (%) (Auto) 0.0 % Basophils (%) (Auto) 0.0 % Neutrophils # (Auto) 8.55 K/uL Lymphocytes # (Auto) 1.14 K/uL Monocytes # (Auto) 0.74 K/uL Eosinophils # (Auto) 0.00 K/uL Basophils # (Auto) 0.00 K/uL RDW Standard Deviation 41.2 fL RDW Coefficient of Variation 12.4 % Immature Granulocyte % (Auto) 0.3 % Immature Granulocyte # (Auto) 0.03 K/uL Sodium Level 137 mmol/L Potassium Level 3.6 mmol/L Chloride Level 105 mmol/L Carbon Dioxide Level 28 mmol/L Anion Gap 5.0 mmol/L Blood Urea Nitrogen 14 mg/dl Creatinine 1.04 mg/dl Est Creatinine Clear Calc Drug Dose 94.8 ml/min Estimated GFR () 84.7 Estimated GFR (Non- 73.1 BUN/Creatinine Ratio 13.4 Random Glucose 236 mg/dl Calcium Level 8.5 mg/dl Total Bilirubin 0.4 mg/dl Aspartate Amino Transf (AST/SGOT) 18 U/L Alanine Aminotransferase (ALT/SGPT) 36 U/L Alkaline Phosphatase 89 U/L Total Protein 7.1 gm/dl Albumin 3.6 gm/dl Globulin 3.5 gm/dl Albumin/Globulin Ratio 1.0 Lipase 58 U/L Bedside Glucose 194 mg/dl Urine Color YELLOW Urine Appearance CLOUDY Urine pH 7.5 Urine Specific [place] 1.036 Urine Protein NEG Urine Glucose (UA) TRACE Urine Ketones NEG Urine Occult Blood NEG Urine Nitrite NEG Urine Bilirubin NEG Urine Urobilinogen NEG Urine Leukocyte Esterase NEG Urine WBC (Auto) 1-5 /hpf Urine RBC (Auto) 0-4 /hpf Urine Hyaline Casts (Auto) 1-5 /lpf Urine Epithelial Cells (Auto) >30 /lpf Urine Bacteria (Auto) NEG Assessment & Plan Patient is a 27 year old female with a past medical history of Type 1 Diabetes and 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 No evidence of bowel obstruction. No evidence of free air 2. Surgically absent gallbladder 3. Small amount of fluid within the cholecystectomy bed as well as within Morison's pouch. This appears slightly increased from a study performed earlier in the day. Diagnostic considerations include delayed bile leak, delayed hemorrhage, or infection. There are no walled off collections to indicate an abscess. - Dr. 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 I discussed the case with the resident and agree with the findings and plan as documented in the note. Any exceptions or clarifications are listed here: 27 y/o F hx DM 1, seizures, recent jonathan - presents with progressive abdominal pain - imaging suggestes possible bile leak - the pt was admitted by surgery - we are asked to consult OE AAO x 3 S1,2 R CTAB Diffusely tender abdomen No CCE P: Per surgery, may proceed for HIDA scan AM Adequate pain control and IVF provided SS for DM Cont Lamictal, Zonisamide for seizure disorder Documented By: Tomas Mcgee Resident Tracking Resident Involvement: Resident Care Provided Care Provided: Adult Hospital Medicine
--- NOTE | 2017-12-15 23:35 | HISTORY & PHYSICAL EXAMINATION ---
DATE OF ADMISSION: 12/15/2017 CHIEF COMPLAINT: Abdominal pain. HISTORY OF PRESENT ILLNESS: This is a 27-year-old female who underwent a laparoscopic cholecystectomy at [facility] 8 days ago. She had been doing well until this morning at 2:00 a.m. when she had the acute onset of abdominal pain that she describes in the right upper abdomen, extending down then toward the right iliac fossa. The pain was sharp and stabbing and exacerbated by motion. She presented to the emergency room where a workup was performed. Her white count was normal. She had a CT scan that showed postsurgical changes of cholecystectomy with a small amount of free fluid in the pelvis and moderate stool burden that would be consistent with constipation. The patient has had about 5 bowel movements since surgery, the most recent was 2 days ago. It was formed. There was no blood. She has not had any dysuria or hematuria. While in the Emergency Room, she was given analgesics and her pain seemed to resolve and she was discharged. She then went home and had the onset of pain again in the similar location, only this time the severity seemed to be worse. She has returned to the Emergency Room. She has had nausea but has not vomited. She has not had another bowel movement. Again, no urinary symptoms. The pain is exacerbated by motion. She has not had fever that she is aware of. PAST MEDICAL HISTORY: Diabetes type 1 that she has had since the age of 9. She also has a seizure disorder. Her most recent seizure was in July. The seizure prior to that was about 3 years ago. PAST SURGICAL HISTORY: Includes , laparoscopic cholecystectomy, wisdom teeth removal and left knee arthroscopy. MEDICATIONS AT HOME: Include Lantus, Humalog, Lamictal, Pamelor, Senokot-S and Zonegran. ALLERGIES: TO FLUOXETINE AND SERTRALINE. SOCIAL HISTORY: She does not smoke, chew tobacco or use alcohol. PHYSICAL EXAMINATION: GENERAL: Reveals a well-developed, well-nourished female who appears in mild distress. VITAL SIGNS: Blood pressure 120/72, heart rate 88, respirations 16, pulse oximetry is 100% on room air, temperature is 36.7. HEENT: Reveals sclerae to be anicteric. Mucous membranes are moist. NECK: Supple with no JVD and no cervical or supraclavicular adenopathy. BACK: Has no spinal or CVA tenderness. LUNGS: Clear. HEART: Regular. ABDOMEN: Has decreased bowel sounds. It is not distended. It is soft but she is tender throughout to mild to moderate palpation. EXTREMITIES: Reveal no edema. LABORATORY DATA: Most recently reveals WBC of 10.46 and that was 7.87 this morning. Her H&H is 11.7 and 33.4 with a platelet count of 279,000. Her sodium was 137, potassium 3.6, chloride 105, CO2 of 28, BUN is 0.4, AST 18, ALT 36, alkaline phosphatase 89, lipase 58 and glucose was 236. CT scan repeated tonight with oral contrast demonstrated small amount of fluid within the cholecystectomy bed as well as within Morison's pouch that appears slightly increased from study performed earlier in the day. There is no evidence of bowel obstruction. There was no free air. ASSESSMENT AND PLAN: This patient is having post-cholecystectomy abdominal pain and there is fluid present in the abdomen in Mera's pouch and in the cholecystectomy bed. My considerations include most likely bile leak. This could be related to infection, although there is no evidence of a contained abscess. Even less likely would be a hollow viscus perforation as there is no free air. I am going to admit the patient for analgesics. Will obtain a HIDA scan. I am going to consult Dr. Mcgee from the hospitalist team for help with management of her seizure disorder and diabetes. I do not think that antibiotics are indicated at the present time.
[2017-12-16] VITALS (9 sets, daily range): BP systolic 106–130; BP diastolic 66–86; PULSE 84–104; TEMP 36.7–37.4; O2SAT 98–99; Ht 175.3 cm; Wt 87.0 kg
--- NOTE | 2017-12-16 00:15 | EMERGENCY ROOM VISIT NOTE ---
History First contact with patient: 17:47 Chief Complaint: ABDOMINAL PAIN Stated Complaint: SEVERE STOMACH PAIN Nursing Triage Summary: Pt here earlier today for abdominal pain, states that she went home and pain has become worse since and is making her nauseated. History of Present Illness The patient is a 27 year old female who presents to the Emergency Room with complaints of abdominal pain. The patient reports that she had a cholecystectomy done 8 days ago at [facility]. She was seen here earlier today due to abdominal pain which started this morning. She states that after discharge, her pain medication wore off and her abdominal pain returned. She states the pain is located across her upper abdomen and describes the pain as feeling similar to a "side stitch." She rates her discomfort an 8/10. She is a type I diabetic. She tried to take 1 Percocet prior to arrival but states this did not help. She denies vomiting but does state she is nauseous which she feels is due to the pain. She was told that she is constipated and has not had a bowel movement since. She denies any fevers. Review of Systems A complete 10 point review of systems was reviewed with the patient with pertinent positives and negatives as per history of present illness. All else were negative. Past Medical/Surgical History Medical Problems: (1) Abdominal pain (2) Diabetes (3) Migraines (4) Seizures Surgical Problems: (1) H/O: (2) S/P cholecystectomy Family History FH: multiple sclerosis Social History Smoking Status: Never Smoker Drug Use: none Marital Status: Housing Status: lives with significant other Occupation Status: employed Current/Historical Medications Scheduled Bisacodyl (Dulcolax), 2 TAB PO TODAY Insulin Glargine (Lantus), 24 UNITS SC QPM Insulin Lispro (Human) (Humalog), SC AC Lamotrigine (Lamictal), 400 MG PO QAM Lamotrigine (Lamictal), 500 MG PO HS Multivitamins/Minerals (Mvi With Minerals), 1 TAB PO DAILY Nortriptyline Hcl (Pamelor), 75 MG PO HS Sennosides-Docusate Sodium (Senokot S), 2 TAB PO TID Zonisamide (Zonegran), 200 MG PO QPM Zonisamide (Zonegran), 100 MG PO QAM Scheduled PRN Oxycodone Ir (Roxicodone Ir), 1 TAB PO Q4H PRN for Pain Physical Exam Vital Signs Date Time Temp Pulse Resp B/P (MAP) Pulse Ox O2 Delivery O2 Flow Rate FiO2 12/15/17 21:42 104 18 120/72 100 Room Air 12/15/17 20:54 36.9 106 18 128/79 100 Room Air 12/15/17 19:19 107 28 139/92 99 12/15/17 17:43 36.8 115 18 127/75 98 Room Air Physical Exam VITALS: Vitals are noted on the nurse's note and reviewed by myself. Vital signs stable. GENERAL: This is a 27-year-old female, in no acute distress, nondiaphoretic, well-developed well-nourished. SKIN: The skin was without rashes. MOUTH: Mucous membranes moist. HEART: Tachycardic, regular rhythm without murmurs gallops or rubs. LUNGS: Clear to auscultation bilaterally without wheezes, rales or rhonchi. ABDOMEN: Positive bowel sounds x 4. There is diffuse tenderness to light palpation with focal tenderness in the right upper quadrant and epigastric region. Positive guarding. NEURO: Patient was alert and oriented to person place and time. Medical Decision & Procedures ER Provider Diagnostic Interpretation: CT ABD/PELVIS IV AND ORAL CONT FINDINGS: Lower chest: There are minor dependent atelectatic changes Liver: The contrast-enhanced liver is normal in size, contour, and attenuation. There is no intrahepatic biliary ductal dilatation. The hepatic veins and portal veins are patent. Gallbladder: There are postsurgical changes are prior cholecystectomy. There is a small amount of fluid within the cholecystectomy bed and in Morison's pouch. The fluid is nonspecific. There are no walled off collections to indicate an abscess. A delayed bile leak cannot be excluded Spleen: Normal in size and attenuation. Pancreas: Unremarkable. Adrenal glands: Unremarkable. Kidneys: There is symmetric renal cortical enhancement. The kidneys are normal in size without hydronephrosis. Bowel: There are no transition zones indicate bowel obstruction. There is no acute diverticulitis. There is mild fecal retention. The appendix is not visualized with certainty. Peritoneum: There is a small amount of free fluid within the pelvis. No free air is visualized. Vasculature: The abdominal aorta is normal in course and caliber. Adenopathy: None. Pelvic viscera: The bladder, and pelvic viscera are unremarkable. A tampon is visualized. Skeletal structures: No destructive osseous lesions are seen. IMPRESSION: 1. No evidence of bowel obstruction. No evidence of free air 2. Surgically absent gallbladder 3. Small amount of fluid within the cholecystectomy bed as well as within Morison's pouch. This appears slightly increased from a study performed earlier in the day. Diagnostic considerations include delayed bile leak, delayed hemorrhage, or infection. There are no walled off collections to indicate an abscess. Laboratory Results 12/15/17 18:40 Red Blood Count 3.68, Mean Corpuscular Volume 90.8, Mean Corpuscular Hemoglobin 31.8, Mean Corpuscular Hemoglobin Concent 35.0, Mean Platelet Volume 9.0, Neutrophils (%) (Auto) 81.7, Lymphocytes (%) (Auto) 10.9, Monocytes (%) (Auto) 7.1, Eosinophils (%) (Auto) 0.0, Basophils (%) (Auto) 0.0, Neutrophils # (Auto) 8.55, Lymphocytes # (Auto) 1.14, Monocytes # (Auto) 0.74, Eosinophils # (Auto) 0.00, Basophils # (Auto) 0.00 12/15/17 18:40 Test 12/15/17 18:40 12/15/17 21:01 12/15/17 21:13 White Blood Count 10.46 K/uL (4.8-10.8) Red Blood Count 3.68 M/uL (4.2-5.4) Hemoglobin 11.7 g/dL (12.0-16.0) Hematocrit 33.4 % (37-47) Mean Corpuscular Volume 90.8 fL (80-100) Mean Corpuscular Hemoglobin 31.8 pg (25-34) Mean Corpuscular Hemoglobin Concent 35.0 g/dl (32-36) Platelet Count 279 K/uL (130-400) Mean Platelet Volume 9.0 fL (7.4-10.4) Neutrophils (%) (Auto) 81.7 % Lymphocytes (%) (Auto) 10.9 % Monocytes (%) (Auto) 7.1 % Eosinophils (%) (Auto) 0.0 % Basophils (%) (Auto) 0.0 % Neutrophils # (Auto) 8.55 K/uL (1.4-6.5) Lymphocytes # (Auto) 1.14 K/uL (1.2-3.4) Monocytes # (Auto) 0.74 K/uL (0.11-0.59) Eosinophils # (Auto) 0.00 K/uL (0-0.5) Basophils # (Auto) 0.00 K/uL (0-0.2) RDW Standard Deviation 41.2 fL (36.4-46.3) RDW Coefficient of Variation 12.4 % (11.5-14.5) Immature Granulocyte % (Auto) 0.3 % Immature Granulocyte # (Auto) 0.03 K/uL (0.00-0.02) Anion Gap 5.0 mmol/L (3-11) Est Creatinine Clear Calc Drug Dose 94.8 ml/min Estimated GFR () 84.7 Estimated GFR (Non- 73.1 BUN/Creatinine Ratio 13.4 (10-20) Calcium Level 8.5 mg/dl (8.5-10.1) Total Bilirubin 0.4 mg/dl (0.2-1) Aspartate Amino Transf (AST/SGOT) 18 U/L (15-37) Alanine Aminotransferase (ALT/SGPT) 36 U/L (12-78) Alkaline Phosphatase 89 U/L (45-117) Total Protein 7.1 gm/dl (6.4-8.2) Albumin 3.6 gm/dl (3.4-5.0) Globulin 3.5 gm/dl (2.5-4.0) Albumin/Globulin Ratio 1.0 (0.9-2) Lipase 58 U/L (73-393) Bedside Glucose 194 mg/dl (70-90) Urine Color YELLOW Urine Appearance CLOUDY (CLEAR) Urine pH 7.5 (4.5-7.5) Urine Specific [place] 1.036 (1.000-1.030) Urine Protein NEG (NEG) Urine Glucose (UA) TRACE (NEG) Urine Ketones NEG (NEG) Urine Occult Blood NEG (NEG) Urine Nitrite NEG (NEG) Urine Bilirubin NEG (NEG) Urine Urobilinogen NEG (NEG) Urine Leukocyte Esterase NEG (NEG) Urine WBC (Auto) 1-5 /hpf (0-5) Urine RBC (Auto) 0-4 /hpf (0-4) Urine Hyaline Casts (Auto) 1-5 /lpf (0-5) Urine Epithelial Cells (Auto) >30 /lpf (0-5) Urine Bacteria (Auto) NEG (NEG) Medications Administered Medications (Trade) Dose Ordered Sig/Jewels Route Start Time Stop Time Status Last Admin Dose Admin Sodium Chloride 1,000 ml @ 999 mls/hr Q1H1M STAT IV 12/15/17 18:01 12/15/17 19:01 DC 12/15/17 19:00 999 MLS/HR Morphine Sulfate (MoRPHine SULFATE INJ) 8 mg NOW STAT IV 12/15/17 18:01 12/15/17 18:03 DC 12/15/17 19:02 8 MG Ondansetron HCl (Zofran Inj) 4 mg NOW STAT IV 12/15/17 18:01 12/15/17 18:03 DC 12/15/17 19:01 4 MG Hydromorphone HCl (Dilaudid Inj) 0.5 mg NOW STAT IV 12/15/17 19:14 12/15/17 19:15 DC 12/15/17 19:18 0.5 MG Hydromorphone HCl (Dilaudid Inj) 0.5 mg NOW STAT IV 12/15/17 19:52 12/15/17 19:53 DC 12/15/17 19:59 0.5 MG Hydromorphone HCl (Dilaudid Inj) 0.5 mg NOW STAT IV 12/15/17 22:19 12/15/17 22:20 DC 12/15/17 22:26 0.5 MG ED Course The patient was evaluated as above. Labs were drawn and IV access was obtained. Patient was medicated with 1 L normal saline solution, 8 mg morphine and 4 mg Zofran. Consultation was made with general surgery. I spoke with Dr. Silva who will evaluate the patient. He requested that a repeat CT be performed with both IV and oral contrast. Patient was reevaluated and was having more pain. She was given 0.[address] was performed. Patient was reevaluated and was having increased pain after CT scan. She was given an additional 0.[address] Silva will admit the patient for further evaluation and care. Medical Decision Differential diagnosis includes postoperative infection, intra-abdominal abscess , bile leak, bowel obstruction, constipation, among others. The patient is a 27-year-old female who presents today complaining of pain following a cholecystectomy. Patient had been seen here earlier today. At that time, she had a negative workup and was feeling better after pain medication and it was felt to be safe for her to be discharged home. Patient returns after having increasing pain. Labs showed no leukocytosis or elevation of LFTs. General surgery was consulted and did request a repeat CT be performed. This was performed with IV and oral contrast and did show a small amount of fluid in the right upper quadrant, possibly consistent with infection , delayed hemorrhage or delayed bile leak. Patient will be admitted by the general surgery service for further evaluation and care. Medication Reconcilliation Current Medication List: was personally reviewed by ut Blood Pressure Screening Patient's blood pressure: Normal blood pressure Impression Primary Impression: Right upper quadrant abdominal pain Departure Information Referrals Dayana Moeller, C.R.N.P (PCP) Patient Instructions My [facility]
[2017-12-16] MEDS: SODIUM CHLORIDE 0.9% 1000ML 1,000 ML IV SCH ×2 (00:17→07:51)
[2017-12-16] MEDS: HYDROmorphone INJ 0.5 MG/0.5 ML SYR IV PRN ×3 (00:25→07:45)
[2017-12-16] MEDS ORDERED: DEXTROSE 50% 50 ML SYR IV PRN (00:30)
[2017-12-16] MEDS ORDERED: GLUCAGON FOR INJ 1 MG VIAL SQ PRN (00:30)
[2017-12-16] MEDS ORDERED: GLUCOSE 10 TABS/TUBE PO PRN (00:30)
[2017-12-16] MEDS ORDERED: GLUCOSE 40% GEL 15 GM TUBE PO PRN (00:30)
[2017-12-16] MEDS ORDERED: NURSING VERBAL MED ORDER ONE ×4 (00:45→17:15)
[2017-12-16] MEDS ORDERED: INSULIN GLARGINE SOLOSTAR 100 UNITS/ML 3 ML PEN SC ONE (01:30)
[2017-12-16] MEDS: INSULIN ASPART 100 UNITS/ML 3 ML PEN SC SCH ×5 (01:54→23:50)
[2017-12-16 06:54] LABS: HEMATOCRIT 32.5 % (37-47); HEMOGLOBIN 11.3 g/dL (12.0-16.0); IG# 0.03 K/uL (0.00-0.02); LYMPH % 10.3 %; MEAN CELL VOLUME 90.8 fL (80-100); MEAN CORPUSCULAR HEMOGLOBIN 31.6 pg (25-34); MEAN CORPUSCULAR HGB CONC 34.8 g/dl (32-36); MEAN PLATELET VOLUME 9.1 fL (7.4-10.4); MONO % 6.9 %; MONO ABS # 0.67 K/uL (0.11-0.59); NEUT % 82.5 %; NEUT ABS # 7.99 K/uL (1.4-6.5); PLATELET COUNT 274 K/uL (130-400); RED CELL DISTRIBUTION WIDTH CV 12.4 % (11.5-14.5); WHITE BLOOD COUNT 9.69 K/uL (4.8-10.8)
[2017-12-16 07:23] LABS: ALBUMIN 3.4 gm/dl (3.4-5.0); CALCIUM 8.1 mg/dl (8.5-10.1); CREATININE 0.84 mg/dl (0.60-1.20); POTASSIUM 3.5 mmol/L (3.5-5.1)
[2017-12-16 07:26] LABS: TOTAL PROTEIN 6.9 gm/dl (6.4-8.2)
[2017-12-16] MEDS ORDERED: HYDROmorphone INJ 0.5 MG/0.5 ML SYR IV PRN (08:30)
[2017-12-16] MEDS ORDERED: ZONISAMIDE 100 MG PO SCH (09:00)
[2017-12-16] MEDS ORDERED: HYDROmorphone INJ 1 MG/ML SYR IV ONE (09:00)
--- NOTE | 2017-12-16 09:48 | Surgery Progress Note ---
Surgery Progress Note Date of Service Dec 16, 2017. Subjective Post OP Day: HD # 1 , POD # 9 s/p lap jonathan at [place] "Feel like " Has not had pain medication all night (HIDA scan ordered for today and usually do not given pain medications prior) Abdominal pain has not improved since evaluation last night Objective Vital Signs: Date Time Temp Pulse Resp B/P (MAP) Pulse Ox O2 Delivery O2 Flow Rate FiO2 12/16/17 08:18 37.2 97 16 108/70 (83) 98 Room Air 12/16/17 00:30 37.1 104 16 121/73 99 Room Air 12/16/17 00:30 Room Air 12/15/17 23:58 99 18 131/81 96 12/15/17 21:42 104 18 120/72 100 Room Air 12/15/17 20:54 36.9 106 18 128/79 100 Room Air 12/15/17 19:19 107 28 139/92 99 12/15/17 17:43 36.8 115 18 127/75 98 Room Air General Appearance: WD/WN, + moderate distress Head: normocephalic, atraumatic Neck: trachea midline Respiratory/Chest: no respiratory distress, no accessory muscle use Laboratory Results: Results Past 24 Hours Test 12/15/17 18:40 12/15/17 21:01 12/15/17 21:13 12/15/17 23:22 Range/Units White Blood Count 10.46 4.8-10.8 K/uL Red Blood Count 3.68 4.2-5.4 M/uL Hemoglobin 11.7 12.0-16.0 g/dL Hematocrit 33.4 37-47 % Mean Corpuscular Volume 90.8 80-100 fL Mean Corpuscular Hemoglobin 31.8 25-34 pg Mean Corpuscular Hemoglobin Concent 35.0 32-36 g/dl Platelet Count 279 130-400 K/uL Mean Platelet Volume 9.0 7.4-10.4 fL Neutrophils (%) (Auto) 81.7 % Lymphocytes (%) (Auto) 10.9 % Monocytes (%) (Auto) 7.1 % Eosinophils (%) (Auto) 0.0 % Basophils (%) (Auto) 0.0 % Neutrophils # (Auto) 8.55 1.4-6.5 K/uL Lymphocytes # (Auto) 1.14 1.2-3.4 K/uL Monocytes # (Auto) 0.74 0.11-0.59 K/uL Eosinophils # (Auto) 0.00 0-0.5 K/uL Basophils # (Auto) 0.00 0-0.2 K/uL RDW Standard Deviation 41.2 36.4-46.3 fL RDW Coefficient of Variation 12.4 11.5-14.5 % Immature Granulocyte % (Auto) 0.3 % Immature Granulocyte # (Auto) 0.03 0.00-0.02 K/uL Sodium Level 137 136-145 mmol/L Potassium Level 3.6 3.5-5.1 mmol/L Chloride Level 105 98-107 mmol/L Carbon Dioxide Level 28 21-32 mmol/L Anion Gap 5.0 3-11 mmol/L Blood Urea Nitrogen 14 7-18 mg/dl Creatinine 1.04 0.60-1.20 mg/dl Est Creatinine Clear Calc Drug Dose 94.8 ml/min Estimated GFR () 84.7 Estimated GFR (Non- 73.1 BUN/Creatinine Ratio 13.4 10-20 Random Glucose 236 70-99 mg/dl Calcium Level 8.5 8.5-10.1 mg/dl Total Bilirubin 0.4 0.2-1 mg/dl Aspartate Amino Transf (AST/SGOT) 18 15-37 U/L Alanine Aminotransferase (ALT/SGPT) 36 12-78 U/L Alkaline Phosphatase 89 45-117 U/L Total Protein 7.1 6.4-8.2 gm/dl Albumin 3.6 3.4-5.0 gm/dl Globulin 3.5 2.5-4.0 gm/dl Albumin/Globulin Ratio 1.0 0.9-2 Lipase 58 73-393 U/L Bedside Glucose 194 266 70-90 mg/dl Urine Color YELLOW Urine Appearance CLOUDY CLEAR Urine pH 7.5 4.5-7.5 Urine Specific [place] 1.036 1.000-1.030 Urine Protein NEG NEG Urine Glucose (UA) TRACE NEG Urine Ketones NEG NEG Urine Occult Blood NEG NEG Urine Nitrite NEG NEG Urine Bilirubin NEG NEG Urine Urobilinogen NEG NEG Urine Leukocyte Esterase NEG NEG Urine WBC (Auto) 1-5 0-5 /hpf Urine RBC (Auto) 0-4 0-4 /hpf Urine Hyaline Casts (Auto) 1-5 0-5 /lpf Urine Epithelial Cells (Auto) >30 0-5 /lpf Urine Bacteria (Auto) NEG NEG Test 12/16/17 01:50 12/16/17 05:43 12/16/17 06:37 Range/Units Bedside Glucose 298 183 70-90 mg/dl White Blood Count 9.69 4.8-10.8 K/uL Red Blood Count 3.58 4.2-5.4 M/uL Hemoglobin 11.3 12.0-16.0 g/dL Hematocrit 32.5 37-47 % Mean Corpuscular Volume 90.8 80-100 fL Mean Corpuscular Hemoglobin 31.6 25-34 pg Mean Corpuscular Hemoglobin Concent 34.8 32-36 g/dl Platelet Count 274 130-400 K/uL Mean Platelet Volume 9.1 7.4-10.4 fL Neutrophils (%) (Auto) 82.5 % Lymphocytes (%) (Auto) 10.3 % Monocytes (%) (Auto) 6.9 % Eosinophils (%) (Auto) 0.0 % Basophils (%) (Auto) 0.0 % Neutrophils # (Auto) 7.99 1.4-6.5 K/uL Lymphocytes # (Auto) 1.00 1.2-3.4 K/uL Monocytes # (Auto) 0.67 0.11-0.59 K/uL Eosinophils # (Auto) 0.00 0-0.5 K/uL Basophils # (Auto) 0.00 0-0.2 K/uL RDW Standard Deviation 41.0 36.4-46.3 fL RDW Coefficient of Variation 12.4 11.5-14.5 % Immature Granulocyte % (Auto) 0.3 % Immature Granulocyte # (Auto) 0.03 0.00-0.02 K/uL Sodium Level 137 136-145 mmol/L Potassium Level 3.5 3.5-5.1 mmol/L Chloride Level 105 98-107 mmol/L Carbon Dioxide Level 24 21-32 mmol/L Anion Gap 7.0 3-11 mmol/L Blood Urea Nitrogen 10 7-18 mg/dl Creatinine 0.84 0.60-1.20 mg/dl Est Creatinine Clear Calc Drug Dose 117.3 ml/min Estimated GFR () 109.6 Estimated GFR (Non- 94.6 BUN/Creatinine Ratio 12.3 10-20 Random Glucose 173 70-99 mg/dl Calcium Level 8.1 8.5-10.1 mg/dl Total Bilirubin 0.4 0.2-1 mg/dl Aspartate Amino Transf (AST/SGOT) 12 15-37 U/L Alanine Aminotransferase (ALT/SGPT) 30 12-78 U/L Alkaline Phosphatase 78 45-117 U/L Total Protein 6.9 6.4-8.2 gm/dl Albumin 3.4 3.4-5.0 gm/dl Globulin 3.5 2.5-4.0 gm/dl Albumin/Globulin Ratio 1.0 0.9-2 Assessment & Plan POD # 9 s/p elective laparoscopic cholecystectomy at [facility] - CT scan showing fluid in gallbladder fossa and Mera Pouch questionable bile leak? - vitals stable other than tachycardia in the 90's/low 100's most likely secondary to pain - afebrile, no leukocytosis Plan: HIDA scan ordered for this morning Continue current pain management, may have IV Dilaudid as HIDA scan is without EF Continue IV fluids, NPO, IV Zofran as needed NPO except meds for her antiseizure medications GI consult for possible bile leak, await HIDA scan results Dr. Silva has seen patient, agrees with above.
--- NOTE | 2017-12-16 11:07 | Gastrointestinal Consultation ---
Gastrointestinal Consultation Date of Consultation: Dec 16, 2017 Attending Physician: Shira Consulting Physician: Jagruti Reason for Consultation: abd pain s/p cholecysectomy History of Present Illness Patient is a 27 year old female w/ PMH of T1DM, migraines, anxiety, seizure disorder who presents through the ED for abdominal pain. GI asked to evaluate the pt for abdominal pain s/p cholecystectomy as CT w/ small amount of fluid within the cholecystectomy bed. Pt was seen and evaluated, chart reviewed. Was taken to HIDA scan, cold purple called after completion. Chest pain. Dr. Cristina aware. Plan for EKG, Chest XR, troponin. Pt is having upper abd pain, constant, burning despite IV analgesia. No alleviating factors. No nausea, vomiting. Is having CP. No fever, chills, SOB. Detailed ROS was not obtained due to her degree of pain HIDA 12/16/17: bile leak Chest XR 12/16/17: negative CT ABD/Pelvis 12/15/17: No evidence of bowel obstruction. No evidence of free air Surgically absent gallbladder Small amount of fluid within the cholecystectomy bed as well as within Morison's pouch. This appears slightly increased from a study performed earlierin the day. Diagnostic considerations include delayed bile leak, delayed hemorrhage, or infection. There are no walled off collections to indicate an abscess. Cholecystectomy 12/07/17: The gallbladder was distended. The cystic duct was extremely narrow and very short. The common duct visually looked normal. The liver looked normal Past Medical/Surgical History Medical Problems: (1) Constipation Status: Acute (2) Diffuse abdominal pain Status: Acute (3) Encounter for recheck of abscess following incision and drainage Status: Acute (4) Pilonidal abscess Status: Acute (5) Right upper quadrant abdominal pain Status: Acute Social History Problems: (1) S/P cholecystectomy Status: Acute Past Medical History: T1DM, migraines, anxiety, seizure disorder Past Surgical History: cholecystectomy, , wisdom teeth extraction, left knee arthroplasty Family History FH: multiple sclerosis Social History Smoking Status: Unknown if Ever Smoked Drug Use: none Marital Status: Housing Status: lives with significant other Occupation Status: employed Allergies Coded Allergies: No Known Allergies (Unverified , 12/15/17) Current Medications Home Meds and Scripts Medications Dose Route/Sig Max Daily Dose Days Date Category Dose Instructions Mvi With Minerals (Multivitamins/Minerals) Tab 1 Tab PO DAILY 12/15/17 Reported Dulcolax (Bisacodyl) 5 Mg Tab 2 Tab PO TODAY 1 12/15/17 Reported Roxicodone Ir (Oxycodone HCl) 5 Mg Tab 1 Tab PO Q4H PRN 12/15/17 Rx Senokot S (Sennosides-Docusate Sodium) 1 Tab Tab 2 Tab PO TID 12/15/17 Rx Pamelor (Nortriptyline HCl) 75 Mg Cap 75 Mg PO HS 12/15/17 Reported Zonegran (Zonisamide) 100 Mg Cap 100 Mg PO QAM 12/15/17 Reported Zonegran (Zonisamide) 100 Mg Cap 200 Mg PO QPM 07/20/17 Reported Lamictal (Lamotrigine) 100 Mg Tab 500 Mg PO HS 07/20/17 Reported Lamictal (Lamotrigine) 200 Mg Tab 400 Mg PO QAM 07/20/17 Reported Humalog (Insulin Lispro (Human)) 100 Unit/Ml Inj SC AC 07/20/17 Reported SLIDING SCALE, PER PT Lantus (Insulin Glargine) 100 Unit/Ml Inj 24 Units SC QPM 07/20/17 Reported Review of Systems Respiratory: No cough, No shortness of breath Cardiac: + chest pain, No orthopnea, No edema Abdomen: + pain, No nausea, No vomiting, No diarrhea, No constipation, No GI bleeding Physical Exam Date Time Temp Pulse Resp B/P (MAP) Pulse Ox O2 Delivery O2 Flow Rate FiO2 12/16/17 08:18 37.2 97 16 108/70 (83) 98 Room Air 12/16/17 07:30 Room Air 12/16/17 00:30 37.1 104 16 121/73 99 Room Air 12/16/17 00:30 Room Air 12/15/17 23:58 99 18 131/81 96 12/15/17 21:42 104 18 120/72 100 Room Air 12/15/17 20:54 36.9 106 18 128/79 100 Room Air 12/15/17 19:19 107 28 139/92 99 12/15/17 17:43 36.8 115 18 127/75 98 Room Air General Appearance: + moderate distress (moaning in corona) Eyes: PERRL ENT: hearing grossly normal Neck: supple, trachea midline Respiratory/Chest: lungs clear, normal breath sounds, no accessory muscle use Cardiovascular: no edema, no gallop, no JVD, no murmur, + tachycardia Abdomen: soft, no organomegaly, + tenderness (epigastric, RUQ) Neurologic/Psych: alert Skin: normal color, no jaundice, warm/dry, no rash Laboratory Results Last 24 Hours Test 12/15/17 18:40 12/15/17 21:01 12/15/17 21:13 12/15/17 23:22 White Blood Count 10.46 K/uL Red Blood Count 3.68 M/uL Hemoglobin 11.7 g/dL Hematocrit 33.4 % Mean Corpuscular Volume 90.8 fL Mean Corpuscular Hemoglobin 31.8 pg Mean Corpuscular Hemoglobin Concent 35.0 g/dl Platelet Count 279 K/uL Mean Platelet Volume 9.0 fL Neutrophils (%) (Auto) 81.7 % Lymphocytes (%) (Auto) 10.9 % Monocytes (%) (Auto) 7.1 % Eosinophils (%) (Auto) 0.0 % Basophils (%) (Auto) 0.0 % Neutrophils # (Auto) 8.55 K/uL Lymphocytes # (Auto) 1.14 K/uL Monocytes # (Auto) 0.74 K/uL Eosinophils # (Auto) 0.00 K/uL Basophils # (Auto) 0.00 K/uL RDW Standard Deviation 41.2 fL RDW Coefficient of Variation 12.4 % Immature Granulocyte % (Auto) 0.3 % Immature Granulocyte # (Auto) 0.03 K/uL Sodium Level 137 mmol/L Potassium Level 3.6 mmol/L Chloride Level 105 mmol/L Carbon Dioxide Level 28 mmol/L Anion Gap 5.0 mmol/L Blood Urea Nitrogen 14 mg/dl Creatinine 1.04 mg/dl Est Creatinine Clear Calc Drug Dose 94.8 ml/min Estimated GFR () 84.7 Estimated GFR (Non- 73.1 BUN/Creatinine Ratio 13.4 Random Glucose 236 mg/dl Calcium Level 8.5 mg/dl Total Bilirubin 0.4 mg/dl Aspartate Amino Transf (AST/SGOT) 18 U/L Alanine Aminotransferase (ALT/SGPT) 36 U/L Alkaline Phosphatase 89 U/L Total Protein 7.1 gm/dl Albumin 3.6 gm/dl Globulin 3.5 gm/dl Albumin/Globulin Ratio 1.0 Lipase 58 U/L Bedside Glucose 194 mg/dl 266 mg/dl Urine Color YELLOW Urine Appearance CLOUDY Urine pH 7.5 Urine Specific [place] 1.036 Urine Protein NEG Urine Glucose (UA) TRACE Urine Ketones NEG Urine Occult Blood NEG Urine Nitrite NEG Urine Bilirubin NEG Urine Urobilinogen NEG Urine Leukocyte Esterase NEG Urine WBC (Auto) 1-5 /hpf Urine RBC (Auto) 0-4 /hpf Urine Hyaline Casts (Auto) 1-5 /lpf Urine Epithelial Cells (Auto) >30 /lpf Urine Bacteria (Auto) NEG Test 12/16/17 01:50 12/16/17 05:43 12/16/17 06:37 Bedside Glucose 298 mg/dl 183 mg/dl White Blood Count 9.69 K/uL Red Blood Count 3.58 M/uL Hemoglobin 11.3 g/dL Hematocrit 32.5 % Mean Corpuscular Volume 90.8 fL Mean Corpuscular Hemoglobin 31.6 pg Mean Corpuscular Hemoglobin Concent 34.8 g/dl Platelet Count 274 K/uL Mean Platelet Volume 9.1 fL Neutrophils (%) (Auto) 82.5 % Lymphocytes (%) (Auto) 10.3 % Monocytes (%) (Auto) 6.9 % Eosinophils (%) (Auto) 0.0 % Basophils (%) (Auto) 0.0 % Neutrophils # (Auto) 7.99 K/uL Lymphocytes # (Auto) 1.00 K/uL Monocytes # (Auto) 0.67 K/uL Eosinophils # (Auto) 0.00 K/uL Basophils # (Auto) 0.00 K/uL RDW Standard Deviation 41.0 fL RDW Coefficient of Variation 12.4 % Immature Granulocyte % (Auto) 0.3 % Immature Granulocyte # (Auto) 0.03 K/uL Sodium Level 137 mmol/L Potassium Level 3.5 mmol/L Chloride Level 105 mmol/L Carbon Dioxide Level 24 mmol/L Anion Gap 7.0 mmol/L Blood Urea Nitrogen 10 mg/dl Creatinine 0.84 mg/dl Est Creatinine Clear Calc Drug Dose 117.3 ml/min Estimated GFR () 109.6 Estimated GFR (Non- 94.6 BUN/Creatinine Ratio 12.3 Random Glucose 173 mg/dl Calcium Level 8.1 mg/dl Total Bilirubin 0.4 mg/dl Aspartate Amino Transf (AST/SGOT) 12 U/L Alanine Aminotransferase (ALT/SGPT) 30 U/L Alkaline Phosphatase 78 U/L Total Protein 6.9 gm/dl Albumin 3.4 gm/dl Globulin 3.5 gm/dl Albumin/Globulin Ratio 1.0 Impression Patient is a 27 year old female with upper abdominal pain 8 days post operatively from laparoscopic cholecystectomy in [facility] 12/07/17. HIDA w/ bile leak , code purple due to CP, will need clearance prior to ERCP however her chest pain is likely secondary to her bile leak. Discussed at bedside with Dr. Cristina , plan for Chest XR, EKG, troponin. Plan NPO ERCP for bile leak Start Broad spectrum ABX Indocin to be given in OR Analgesia PRN Needs clearance for ERCP Troponin EKG Chest XR Please call with any acute changes, questions or concerns. Case was discussed with Dr. Chand. ATTESTATION: I have performed a history and physical examination of this patient and reviewed the electronic record. Specifically, on physical examination there is significant abdominal tenderness. I have discussed the case with REMEDIOS Brown. The above note reflects my findings, conclusions, and recommendations. Benito Chand MD
[2017-12-16] MEDS: ONDANSETRON INJ 2 MG/ML 2 ML VIAL IV PRN ×3 (12:05→23:50)
[2017-12-16] MEDS: HYDROmorphone INJ 1 MG/ML SYR IV PRN ×2 (12:05→13:31)
[2017-12-16 12:16] LABS: HEMATOCRIT 35.3 % (37-47); HEMOGLOBIN 12.2 g/dL (12.0-16.0); IG# 0.03 K/uL (0.00-0.02); LYMPH % 9.8 %; LYMPH ABS # 1.12 K/uL (1.2-3.4); MEAN CELL VOLUME 91.2 fL (80-100); MEAN CORPUSCULAR HEMOGLOBIN 31.5 pg (25-34); MEAN CORPUSCULAR HGB CONC 34.6 g/dl (32-36); MEAN PLATELET VOLUME 8.8 fL (7.4-10.4); MONO % 6.4 %; MONO ABS # 0.73 K/uL (0.11-0.59); NEUT % 83.5 %; NEUT ABS # 9.55 K/uL (1.4-6.5); PLATELET COUNT 313 K/uL (130-400); RED CELL DISTRIBUTION WIDTH CV 12.5 % (11.5-14.5); RED CELL DISTRIBUTION WIDTH SD 41.6 fL (36.4-46.3); WHITE BLOOD COUNT 11.43 K/uL (4.8-10.8)
--- NOTE | 2017-12-16 12:16 | DIAGNOSTIC IMAGING REPORT ---
CHEST ONE VIEW PORTABLE CLINICAL HISTORY: chest pain dyspnea COMPARISON STUDY: No previous studies for comparison. FINDINGS: The bones soft tissues and hemidiaphragms are normal. The cardiomediastinal silhouette is normal. The lungs are clear. The pulmonary vasculature is normal. IMPRESSION: Negative chest. The above report was generated using voice recognition software. It may contain grammatical, syntax or spelling errors. Electronically signed by: Severino Sebastian M.D. 12/16/2017 12:15 PM Dictated Date/Time: 12/16/2017 12:15 PM
[2017-12-16] MEDS ORDERED: FENTANYL CITRATE INJ 50 MCG/1 ML 2 ML VIAL ONE ×2 (12:25→13:42)
--- NOTE | 2017-12-16 12:29 | Progress Note ---
Progress Note Date of Service Dec 16, 2017. (Nelly Cristina MD) Progress Note Code purple called After HIDA scan patient developed chest pain /10, diaphoretic and nauseated Mid route back to the room patient was diverted to empty xray room and code was called - Patient was in 10/10 epigastric / substernal chest pain, lungs clear, chest pain was not reproducible with palpation, tachycardia and tachypnea with 100% on RA, BP systolic > 135 - Patient received dilaudid 1 mg IV with 4 mg of Zofran IV with minimal improvement in pain however patient's tachycardia improved - EKG without specific findings of ischemia, sinus tachycardia - CXR no specific findings - CBC with slightly increased white count and left shift, Zosyn added empirically for potential bile leak - Fentanyl 25 mcg IV x 1 for persistent pain - Troponin pending, subsequent interventions based on result - Discussed case with GI; Bile leak in need or ERCP, to remain NPO for potential ERCP this afternoon (Nelly Cristina MD) Resident Physician Supervision Note: The resident responded to the code purple with interventions as documented above. The patient was then moved to room 102 where I interviewed and examined the patient. Discussed with Dr. Cristina and agree with findings and plan as documented in the note. Any exceptions or clarifications are listed here: I also discussed the case in a [id number] conversation with the gastroenterology team. Please see the daily progress note for additional information. Documented By: George Rocha (George Rocha,D.O.)
[2017-12-16] MEDS ORDERED: FENTANYL CITRATE INJ 50 MCG/1 ML 2 ML VIAL IV PRN ×2 (12:30→15:15)
[2017-12-16] MEDS ORDERED: PIPERACILL/TAZOBAC CONSULT ACTIVE PRN ×2 (12:30)
--- NOTE | 2017-12-16 12:30 | DIAGNOSTIC IMAGING REPORT ---
HEPATOBILIARY HIDA IMAGING HISTORY: Postoperative pain S/P lap jonathan 12/07, abdominal pain, fluid on CT, ? bile leak COMPARISON: None. TECHNIQUE: Immediately following the intravenous administration of 5.7 mCi Tc-99m Choletec, dynamic anterior abdominal imaging was performed. FINDINGS: Uniform hepatic tracer accumulation is shown. Prompt intrahepatic biliary excretion is seen. Gallbladder is surgically absent. Appears to be a slow accumulation of isotope in the region of the cystic duct. There is good flow of isotope to the common bile duct and small bowel. IMPRESSION: Findings highly suspect for a localized bile leak at the cystic duct and/or insertion of the cystic duct remnant with the common duct. Common duct shows no evidence for obstruction with good flow of isotope to the small bowel. The above report was generated using voice recognition software. It may contain grammatical, syntax or spelling errors. Electronically signed by: Severino Sebastian M.D. 12/16/2017 12:29 PM Dictated Date/Time: 12/16/2017 12:26 PM
[2017-12-16] MEDS ORDERED: PIPERACILL/TAZOBAC IV 3.375 GM in DEXTROSE 5% 100ML 100 ML IV ONE (13:00)
[2017-12-16] MEDS: ZONISAMIDE 100 MG CAP PO SCH (13:05)
[2017-12-16] MEDS ORDERED: DEXAMETHASONE SOD INJ 4 MG/ML VIAL ONE (13:41)
[2017-12-16] MEDS ORDERED: GLYCOPYRROLATE INJ 0.2 MG/ML VIAL ONE (13:41)
[2017-12-16] MEDS ORDERED: ONDANSETRON INJ 2 MG/ML 2 ML VIAL ONE ×2 (13:41→14:38)
[2017-12-16] MEDS ORDERED: PROPOFOL IV EMULSION 10 MG/ML 20 ML VIAL IV ONE (13:41)
[2017-12-16] MEDS ORDERED: NEOSTIGMINE METHYLSULFATE 5 MG/5 ML SYR ONE (13:41)
[2017-12-16] MEDS ORDERED: LIDOCAINE HCL 2% 2 ML VIAL (20MG/ML) ONE (13:41)
[2017-12-16] MEDS ORDERED: MIDAZOLAM HCL 1 MG/ML 2ML VIAL ONE (13:42)
[2017-12-16] MEDS ORDERED: INDOMETHACIN 50 MG SUPP PR ONE (14:00)
[2017-12-16] MEDS ORDERED: HYDROmorphone INJ 2 MG/ML SYR/VIAL ONE (14:24)
[2017-12-16] MEDS ORDERED: SODIUM CHLORIDE 0.9% INJ 10 ML VIAL ONE (14:24)
[2017-12-16] MEDS ORDERED: LARYING-O-JET KIT (LTA) ONE (14:38)
--- NOTE | 2017-12-16 14:49 | [facility] Operative Report ---
Operative Report Operative Date Dec 16, 2017. Pre-Operative Diagnosis Bile Leak Post-Operative Diagnosis Same as preop Procedure(s) Performed Endoscopic Retrograde Cholangiopancreatography, sphinterotomy with Placement of Biliary Stent Surgeon Dr. Chand Order Desk Caller Surgeon(s) None Estimated Blood Loss 0 ml Findings Bile leak from cystic duct remnant Fluids see anesthesia note Specimens None per Surgeon Drains None Anesthesia Type General Complication(s) none Disposition Recovery Room / PACU Indications Bile leak after laparoscopic cholecystectomy Description of Procedure see Provation note I attest to the content of the Intraoperative Record and any orders documented therein. Any exceptions are noted below.
--- NOTE | 2017-12-16 15:14 | GI REPORT ---
Procedure Date: 12/16/2017 1:46 PM Procedure: ERCP Indications: Bile leak, Postop exam: Laparoscopic cholecystectomy Medicines: General Anesthesia, Indomethicin 100 mg rectal Complications: No immediate complications. Estimated blood loss: None Estimated Blood Loss: Estimated blood loss: none. Procedure: Pre-Anesthesia Assessment: - Prior to the procedure, a History and Physical was performed, and patient medications, allergies and sensitivities were reviewed. The patient's tolerance of previous anesthesia was reviewed. - ASA Grade Assessment: III - A patient with severe systemic disease. After obtaining informed consent, the scope was passed under direct vision. Throughout the procedure, the patient's blood pressure, pulse, and oxygen saturations were monitored continuously. The Scope was introduced through the mouth, and advanced to the duodenum and used to inject contrast into the bile duct and ventral pancreatic duct. The ERCP was accomplished with ease. The patient tolerated the procedure well. Findings: A ecological risk assessor film of the abdomen was obtained. Surgical clips, consistent with a previous cholecystectomy, were seen in the area of the right upper quadrant of the abdomen. There was contrast in the bowel from previous CT scan. The scope was passed under direct vision through the upper GI tract. A large amount of food (residue) was found in the gastric body. After two brief attepts to wire cannulate the CBD, a Vimal Cook Acrobat 0.035 inch guidewire was passed into the ventral pancreatic duct. The Vimal G2Link Omni FS 35 sphinterotome was removed leaving the guidewire in place. It was reloaded with a Vimal Cook Acrobat 0.025 inch guidewire and passed alongside the pancreatic guidewire. The bile duct was cannulated with the guidewire and the sphincterotome was advanced over it to deeply cannulate the bile duct. Contrast was injected. Extravasation of contrast originating from the cystic duct was observed. The pancreatic guidewire was removed. A 7 mm biliary sphincterotomy was made with a monofilament traction (standard) sphincterotome using ERBE electrocautery. There was no post-sphincterotomy bleeding. One 10 Fr by 6 cm plastic stent with a single external flap and a single internal flap was placed into the common bile duct. Bile flowed through the stent. The stent was in good position. The total fluoroscopy exposure time was 1 minute and 25 seconds. Impression: - A large amount of food (residue) in the stomach. - A bile leak was found. - A biliary sphincterotomy was performed. - One plastic stent was placed into the common bile duct. Recommendation: - Repeat ERCP in 1 month to remove stent. - Return patient to [facility] for ongoing care. Benito Chand M.D. Benito Chand MD 12/16/2017 3:13:53 PM This report has been signed electronically. Note Initiated On: 12/16/2017 1:46 PM I attest to the content of the Intraoperative Record and orders documented therein, exceptions below
[2017-12-16] MEDS ORDERED: ATROPINE SULFATE 0.1 MG/ML 5ML SYR IV PRN (15:15)
[2017-12-16] MEDS ORDERED: PROMETHAZINE HCL INJ 12.5 MG in SODIUM CHLORIDE 0.9% 50ML 50 ML IV PRN (15:15)
[2017-12-16] MEDS ORDERED: EpHEDrine SULFATE INJ 50 MG/ML AMP IV PRN (15:15)
[2017-12-16] MEDS ORDERED: ONDANSETRON INJ 2 MG/ML 2 ML VIAL IV PRN (15:15)
[2017-12-16] MEDS ORDERED: NALOXONE HCL 0.4 MG/1 ML VIAL/CARP IV PRN (15:15)
[2017-12-16] MEDS ORDERED: FLUMAZENIL 0.1 MG/1 ML 10 ML VIAL IV PRN (15:15)
[2017-12-16] MEDS ORDERED: D5W AND LACTATED RINGERS 1,000 ML IV SCH (15:15)
--- NOTE | 2017-12-16 15:31 | Anesthesiology Progress Note ---
Anesthesia Post Op Note Date & Time Dec 16, 2017 at 15:31 Vital Signs Pain Intensity: 0 Vital Signs Past 12 Hours Date Time Temp Pulse Resp B/P (MAP) Pulse Ox O2 Delivery O2 Flow Rate FiO2 12/16/17 15:22 36.8 85 16 127/78 (99) 100 Nasal Cannula 2 12/16/17 15:11 118/78 12/16/17 15:10 90 15 12/16/17 15:10 88 15 100 12/16/17 15:06 137/75 12/16/17 15:05 93 14 12/16/17 15:05 92 14 100 12/16/17 15:03 37.2 97 16 98 12/16/17 15:01 129/75 12/16/17 15:00 94 16 100 12/16/17 15:00 94 16 12/16/17 14:56 117/70 12/16/17 14:45 36.4 104 17 117/70 100 Oxymask 10 12/16/17 12:15 37.2 97 16 98 12/16/17 08:18 37.2 97 16 108/70 (83) 98 Room Air 12/16/17 07:30 Room Air Notes Mental Status: alert / awake / arousable, participated in evaluation Pt Amnestic to Procedure: Yes Nausea / Vomiting: adequately controlled Pain: adequately controlled Airway Patency, RR, SpO2: stable & adequate BP & HR: stable & adequate Hydration State: stable & adequate Anesthetic Complications: no major complications apparent
--- NOTE | 2017-12-16 15:44 | DIAGNOSTIC IMAGING REPORT ---
ERCP BILIARY DUCTAL CLINICAL HISTORY: Bile leak COMPARISON STUDY: CT scan dated 01/12/2018 FLUOROSCOPY TIME: 85 seconds. NUMBER OF FLUOROSCOPIC IMAGES: 5 FINDINGS: The common bile duct was cannulated. There is contrast extravasation consistent with a bile leak likely arising from the cystic duct remnant. The final images demonstrate placement of a biliary enteric stent. IMPRESSION: Bile leak. Placement of a biliary enteric stent. Electronically signed by: Jono Arias M.D. 12/16/2017 3:42 PM Dictated Date/Time: 12/16/2017 3:41 PM
[2017-12-16] MEDS ORDERED: OXYCODONE/ACETAMINOPHEN 5-325 TAB PO PRN ×2 (16:15)
--- NOTE | 2017-12-16 16:52 | Progress Note ---
Progress Note Date of Service Dec 16, 2017. Progress Note Evaluated patient at 4:30 pm s/p ERCP with biliary stent placement "feeling 10 times better" soreness of abdomen No chest pain groggy and tired Exam: in no acute distress abdomen: soft, mildly tender, no rigidity, guarding, or rebound. Much improved compared to pre-ERCP Plan: Decrease fluids to 150 mls/hr until GI evaluates (Pancreatitis prevention) May have ice chips and sips Will order po Percocet as needed for pain with BID Colace
[2017-12-16] MEDS ORDERED: INSULIN ASPART 100 UNITS/ML 3 ML PEN SC SCH (17:15)
--- NOTE | 2017-12-16 18:42 | Family Medicine Progress Note ---
Progress Note Date of Service Dec 16, 2017. Subjective Severe abdominal pain located in upper abdomen and shoulders this morning, dilaudid barely helped. Then later c/o chest pain during xray, code purple called, saw pt with Dr. Cristina. HIDA scan had shown biliary leak. Pt taken for urgent ERCP. Pain resolved, resting in bed. ROS limited due to amount of pain during morning interview Medications Current Inpatient Medications Medications (Trade) Dose Ordered Sig/Jewels Route Start Time Stop Time Status Last Admin Dose Admin Ioversol (Optiray 320) 115 ml UD PRN IV 12/15/17 21:45 12/19/17 21:44 Lamotrigine (Lamictal Tab) 500 mg HS PO 12/16/17 21:00 01/15/18 20:59 Lamotrigine (Lamictal Tab) 400 mg QAM PO 12/16/17 09:00 01/15/18 08:59 12/16/17 08:48 400 MG Nortriptyline HCl (Pamelor Cap) 75 mg HS PO 12/16/17 21:00 01/15/18 20:59 Glucose (Glucose 40% Gel) 15-30 GRAMS 15 GRAMS... UD PRN PO 12/16/17 00:30 01/15/18 00:29 Glucose (Glucose Chew Tab) 4-8 Tablets 4 Tabl... UD PRN PO 12/16/17 00:30 01/15/18 00:29 Dextrose (Dextrose 50% 50ML Syringe) 25-50ML OF 50% DW IV FOR... UD PRN IV 12/16/17 00:30 01/15/18 00:29 Glucagon (Glucagon Inj) 1 mg UD PRN SQ 12/16/17 00:30 01/15/18 00:29 Ondansetron HCl (Zofran Inj) 4 mg Q6H PRN IV 12/16/17 01:15 01/15/18 01:14 12/16/17 17:57 4 MG Hydromorphone HCl (Dilaudid Inj) 0.5 mg Q1H PRN IV 12/16/17 08:30 12/29/17 23:14 Hydromorphone HCl (Dilaudid Inj) 1 mg Q2H PRN IV 12/16/17 10:30 12/30/17 10:29 12/16/17 13:31 1 MG Piperacillin Sod/ Tazobactam Sod 3.375 gm/Dextrose 115 ml @ 28.75 mls/ hr Q8H IV 12/16/17 18:00 12/18/17 17:59 Miscellaneous Information (Consult) 1 ea UD PRN N/A 12/16/17 12:30 01/15/18 12:29 Fentanyl Citrate (Fentanyl Inj) 25 mcg ONE PRN IV 12/16/17 12:30 12/30/17 12:29 Zonisamide (Zonegran) 100 mg QAM PO 12/17/17 09:00 01/16/18 08:59 12/16/17 13:05 100 MG Zonisamide (Zonegran) 200 mg QPM PO 12/16/17 21:00 01/15/18 20:59 Dextrose/Lactated Ringer's 1,000 ml @ 150 mls/hr Q6H40M IV 12/16/17 15:15 01/15/18 15:14 Fentanyl Citrate (Fentanyl Inj) 25 mcg Q5M PRN IV 12/16/17 15:15 12/16/17 20:00 Naloxone HCl (Narcan Inj) 0.2 mg Q2M PRN IV 12/16/17 15:15 12/16/17 20:00 Flumazenil (Romazicon Inj) 0.2 mg Q2M PRN IV 12/16/17 15:15 12/16/17 20:00 Ondansetron HCl (Zofran Inj) 4 mg ONE PRN IV 12/16/17 15:15 12/16/17 20:00 Promethazine HCl 12.5 mg/Sodium Chloride 50.5 ml @ 202 mls/hr ONE PRN IV 12/16/17 15:15 12/16/17 20:00 Ephedrine Sulfate (EpHEDrine SULFATE INJ) 5 mg Q5M PRN IV 12/16/17 15:15 12/16/17 20:00 Atropine Sulfate (Atropine Sulfate 0.1mg/ml Inj) 0.5 mg Q1M PRN IV 12/16/17 15:15 12/16/17 20:00 Oxycodone/ Acetaminophen (Percocet 5-325mg Tab) 1 tab Q4H PRN PO 12/16/17 16:15 12/30/17 16:14 Oxycodone/ Acetaminophen (Percocet 5-325mg Tab) 2 tab Q4H PRN PO 12/16/17 16:15 12/30/17 16:14 Docusate Sodium (coLACE CAP) 100 mg BID PO 12/16/17 21:00 01/15/18 20:59 Insulin Aspart (novoLOG ASPART) SLIDING SCALE If C... Q6 SC 12/16/17 18:00 01/15/18 17:59 Objective Vital Signs Date Time Temp Pulse Resp B/P (MAP) Pulse Ox O2 Delivery O2 Flow Rate FiO2 12/16/17 17:04 36.8 89 18 130/86 (101) 99 Nasal Cannula 2.0 12/16/17 16:13 36.8 89 18 119/80 (93) 99 Nasal Cannula 3.0 12/16/17 15:45 99 Nasal Cannula 2.0 12/16/17 15:45 99 Nasal Cannula 2.0 12/16/17 15:45 37.4 99 16 124/67 (86) 99 Nasal Cannula 2.0 12/16/17 15:38 83 15 100 12/16/17 15:38 85 15 12/16/17 15:36 132/74 12/16/17 15:33 86 11 12/16/17 15:33 85 11 100 12/16/17 15:31 130/72 12/16/17 15:28 87 12 12/16/17 15:28 85 12 100 12/16/17 15:27 90 22 100 12/16/17 15:27 94 22 12/16/17 15:26 127/78 12/16/17 15:22 89 17 100 12/16/17 15:22 36.8 85 16 127/78 (99) 100 Nasal Cannula 2 12/16/17 15:22 87 17 12/16/17 15:21 128/73 12/16/17 15:17 87 13 12/16/17 15:17 86 13 100 12/16/17 15:16 136/74 12/16/17 15:12 89 16 100 12/16/17 15:12 91 16 12/16/17 15:11 118/78 12/16/17 15:10 90 15 12/16/17 15:10 88 15 100 12/16/17 15:06 137/75 12/16/17 15:05 93 14 12/16/17 15:05 92 14 100 12/16/17 15:03 37.2 97 16 98 12/16/17 15:01 129/75 12/16/17 15:00 94 16 100 12/16/17 15:00 94 16 12/16/17 14:56 117/70 12/16/17 14:45 36.4 104 17 117/70 100 Oxymask 10 12/16/17 12:15 37.2 97 16 98 12/16/17 08:18 37.2 97 16 108/70 (83) 98 Room Air 12/16/17 07:30 Room Air 12/16/17 00:30 37.1 104 16 121/73 99 Room Air 12/16/17 00:30 Room Air 12/15/17 23:58 99 18 131/81 96 12/15/17 21:42 104 18 120/72 100 Room Air 12/15/17 20:54 36.9 106 18 128/79 100 Room Air 12/15/17 19:19 107 28 139/92 99 Physical Exam Notes: GENERAL: Awake, in moderate distress EYES: Normal conjunctiva. Sclera non-icteric. NECK: Supple. RESPIRATORY: Clear to auscultation. CARDIAC: Regular rate, normal rhythm. Extremities warm and well perfused. Pulses equal. ABDOMEN: Soft, non-distended. ++ tenderness to palpation. No rebound or guarding. No masses. 2 laparoscopic incision sites in tact, non draining. RECTAL: Deferred. MUSCULOSKELETAL: Chest examination reveals++ tenderness. LOWER EXTREMITIES: Calves are equal size bilaterally and non-tender. No edema. No discoloration. NEURO: No motor deficits noted. SKIN: No rash or jaundice noted. Assessment and Plan Patient is a 27 year old female with a past medical history of Type 1 Diabetes and Grand-Mal seizures that presents with abdominal pain 8 days s/p lap cholecystectomy in [place]. Admitted by surg. Found to have biliary leak on HIDA - ERCP done 12/16/17. Abdominal pain, severe, radiating to chest - Bile leak evident on HIDA - taken for ERCP. Pt tolerated well, pain resolved. - fluids running, slowly advancing diet per surgery recs - Fluids changed to lactated ringers (without D5) as pt is T1 diabetic and sugars already 200. @150ml/hr as per surgery. Type 1 Diabetes - Lantus 12 units ordered for QPM while NPO/SIPS --> (can give more lantus overnight tonight if starts eating. 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 Migraine Headaches - Hold Nortriptyline 75mg PO QHS DVT - SCDs Code Status - Full Resuscitation Dispo - med surg - anticipate DC to home tomorrow. Resident Physician Supervision Note: I interviewed and examined the patient. Discussed with Dr. Roach and Dr. Cristina and agree with findings and plan as documented in the note. Any exceptions or clarifications are listed here: Patient's pain is much improved following identification and repair of bile leak S/P cholecystectomy. Glucose control remains suboptimal post procedural, while NPO need to account for stress. Documented By: George Rocha Continued [facility] stay due to: multiple IV medications needed Discharge planning: home Resident Tracking Resident Involvement: Resident Care Provided Care Provided: Adult Hospital Medicine
[2017-12-16] MEDS: PIPERACILL/TAZOBAC IV 3.375 GM in DEXTROSE 5% 100ML 100 ML IV SCH (19:45)
[2017-12-16] MEDS: LACTATED RINGER'S 1000ML 1,000 ML IV SCH (19:48)
[2017-12-16] MEDS ORDERED: ZONISAMIDE 200 MG PO SCH (21:00)
[2017-12-16] MEDS ORDERED: INSULIN GLARGINE SOLOSTAR 100 UNITS/ML 3 ML PEN SC SCH ×2 (21:00)
[2017-12-16] MEDS ORDERED: ZONISAMIDE 100 MG CAP PO SCH (21:00)
[2017-12-16] MEDS ORDERED: NORTRIPTYLINE HCL 25 MG CAP PO SCH (21:00)
[2017-12-16] MEDS: DOCUSATE SODIUM 100 MG CAP PO SCH (21:18)
[2017-12-16] MEDS ORDERED: PHARMACY GLYCEMIC MGMT CONSULT PRN (22:05)
[2017-12-17] MEDS: LACTATED RINGER'S 1000ML 1,000 ML IV SCH ×3 (01:45→14:29)
[2017-12-17] MEDS: PIPERACILL/TAZOBAC IV 3.375 GM in DEXTROSE 5% 100ML 100 ML IV SCH ×2 (01:53→10:17)
[2017-12-17] MEDS ORDERED: INSULIN ASPART 100 UNITS/ML 3 ML PEN SC SCH ×3 (03:00→12:00)
[2017-12-17 03:09] VITALS: BP 93/62; PULSE 88; TEMP 36.8; O2SAT 97
[2017-12-17] MEDS: INSULIN ASPART 100 UNITS/ML 3 ML PEN SC SCH (05:49)
[2017-12-17 07:06] VITALS: BP 102/68; PULSE 57; TEMP 36.9; O2SAT 97
[2017-12-17 07:54] LABS: HEMATOCRIT 28.8 % (37-47); IG# 0.03 K/uL (0.00-0.02); LYMPH % 19.5 %; LYMPH ABS # 1.37 K/uL (1.2-3.4); MEAN CELL VOLUME 90.3 fL (80-100); MEAN CORPUSCULAR HEMOGLOBIN 31.3 pg (25-34); MEAN CORPUSCULAR HGB CONC 34.7 g/dl (32-36); MEAN PLATELET VOLUME 9.2 fL (7.4-10.4); MONO % 8.6 %; NEUT % 71.5 %; NEUT ABS # 5.01 K/uL (1.4-6.5); PLATELET COUNT 241 K/uL (130-400); RED CELL DISTRIBUTION WIDTH CV 12.1 % (11.5-14.5); RED CELL DISTRIBUTION WIDTH SD 39.6 fL (36.4-46.3); WHITE BLOOD COUNT 7.01 K/uL (4.8-10.8)
--- NOTE | 2017-12-17 07:56 | Surgery Progress Note ---
Surgery Progress Note Date of Service Dec 17, 2017. Subjective + nausea (Had mild last night now resolved) feels much better today Almost no pain Objective Vital Signs: Date Time Temp Pulse Resp B/P (MAP) Pulse Ox O2 Delivery O2 Flow Rate FiO2 12/17/17 07:06 36.9 57 18 102/68 (79) 97 Room Air 12/17/17 03:09 36.8 88 16 93/62 (72) 97 Room Air 12/16/17 23:56 Room Air 12/16/17 22:56 36.7 84 18 106/66 (79) 98 Room Air 12/16/17 18:45 36.9 97 18 115/74 (88) 98 Room Air 12/16/17 17:04 36.8 89 18 130/86 (101) 99 Nasal Cannula 2.0 12/16/17 16:13 36.8 89 18 119/80 (93) 99 Nasal Cannula 3.0 12/16/17 15:45 99 Nasal Cannula 2.0 12/16/17 15:45 99 Nasal Cannula 2.0 12/16/17 15:45 37.4 99 16 124/67 (86) 99 Nasal Cannula 2.0 12/16/17 15:38 83 15 100 12/16/17 15:38 85 15 12/16/17 15:36 132/74 12/16/17 15:33 86 11 12/16/17 15:33 85 11 100 12/16/17 15:31 130/72 12/16/17 15:28 87 12 12/16/17 15:28 85 12 100 12/16/17 15:27 90 22 100 12/16/17 15:27 94 22 12/16/17 15:26 127/78 12/16/17 15:22 89 17 100 12/16/17 15:22 36.8 85 16 127/78 (99) 100 Nasal Cannula 2 12/16/17 15:22 87 17 12/16/17 15:21 128/73 12/16/17 15:17 87 13 12/16/17 15:17 86 13 100 12/16/17 15:16 136/74 12/16/17 15:12 89 16 100 12/16/17 15:12 91 16 12/16/17 15:11 118/78 12/16/17 15:10 90 15 12/16/17 15:10 88 15 100 12/16/17 15:06 137/75 12/16/17 15:05 93 14 12/16/17 15:05 92 14 100 12/16/17 15:03 37.2 97 16 98 12/16/17 15:01 129/75 12/16/17 15:00 94 16 100 12/16/17 15:00 94 16 12/16/17 14:56 117/70 12/16/17 14:45 36.4 104 17 117/70 100 Oxymask 10 12/16/17 12:15 37.2 97 16 98 12/16/17 08:18 37.2 97 16 108/70 (83) 98 Room Air General Appearance: WD/WN Abdomen: normal bowel sounds, non distended, soft, + tenderness (minimal) Laboratory Results: Results Past 24 Hours Test 12/16/17 12:08 12/16/17 12:28 12/16/17 14:59 12/16/17 17:59 Range/Units White Blood Count 11.43 4.8-10.8 K/uL Red Blood Count 3.87 4.2-5.4 M/uL Hemoglobin 12.2 12.0-16.0 g/dL Hematocrit 35.3 37-47 % Mean Corpuscular Volume 91.2 80-100 fL Mean Corpuscular Hemoglobin 31.5 25-34 pg Mean Corpuscular Hemoglobin Concent 34.6 32-36 g/dl Platelet Count 313 130-400 K/uL Mean Platelet Volume 8.8 7.4-10.4 fL Neutrophils (%) (Auto) 83.5 % Lymphocytes (%) (Auto) 9.8 % Monocytes (%) (Auto) 6.4 % Eosinophils (%) (Auto) 0.0 % Basophils (%) (Auto) 0.0 % Neutrophils # (Auto) 9.55 1.4-6.5 K/uL Lymphocytes # (Auto) 1.12 1.2-3.4 K/uL Monocytes # (Auto) 0.73 0.11-0.59 K/uL Eosinophils # (Auto) 0.00 0-0.5 K/uL Basophils # (Auto) 0.00 0-0.2 K/uL RDW Standard Deviation 41.6 36.4-46.3 fL RDW Coefficient of Variation 12.5 11.5-14.5 % Immature Granulocyte % (Auto) 0.3 % Immature Granulocyte # (Auto) 0.03 0.00-0.02 K/uL Troponin I < 0.015 0-0.045 ng/ml Bedside Glucose 236 209 242 70-90 mg/dl Test 12/16/17 23:44 12/17/17 03:03 12/17/17 05:43 12/17/17 07:07 Range/Units Bedside Glucose 278 198 189 70-90 mg/dl Microbiology Results 12/16/17 MRSA DNA Surveillance Screen - Final, Complete Specimen Negative for MRSA by DNA Probe Assessment & Plan Bile leak S/P lap jonathan ERCP yesterday with sphincterotomy and stent placement Clinically much better today Labs pending PO intake as per GI Will discuss discharge timing with GI
[2017-12-17 08:17] LABS: HEMOGLOBIN A1C 7.6 % (4.5-5.6)
--- NOTE | 2017-12-17 08:25 | Anesthesiology Progress Note ---
Anesthesia Post Op Note Date & Time Dec 17, 2017 at 08:24 Vital Signs Pain Intensity: 0.0 Vital Signs Past 12 Hours Date Time Temp Pulse Resp B/P (MAP) Pulse Ox O2 Delivery O2 Flow Rate FiO2 12/17/17 07:15 Room Air 12/17/17 07:06 36.9 57 18 102/68 (79) 97 Room Air 12/17/17 03:09 36.8 88 16 93/62 (72) 97 Room Air 12/16/17 23:56 Room Air 12/16/17 22:56 36.7 84 18 106/66 (79) 98 Room Air Notes Mental Status: alert / awake / arousable, participated in evaluation Pt Amnestic to Procedure: Yes Nausea / Vomiting: adequately controlled Pain: adequately controlled Airway Patency, RR, SpO2: stable & adequate BP & HR: stable & adequate Hydration State: stable & adequate Anesthetic Complications: no major complications apparent
[2017-12-17 08:26] LABS: ALBUMIN 2.6 gm/dl (3.4-5.0); CALCIUM 8.2 mg/dl (8.5-10.1); CREATININE 0.71 mg/dl (0.60-1.20); POTASSIUM 3.6 mmol/L (3.5-5.1)
[2017-12-17 08:29] LABS: TOTAL PROTEIN 6.1 gm/dl (6.4-8.2)
[2017-12-17] MEDS: DOCUSATE SODIUM 100 MG CAP PO SCH (08:38)
[2017-12-17] MEDS: ZONISAMIDE 100 MG CAP PO SCH (08:39)
[2017-12-17] MEDS ORDERED: NURSING VERBAL MED ORDER ONE (09:30)
--- NOTE | 2017-12-17 10:05 | Gastroenterology Progress Note ---
Progress Note Date of Service: Dec 17, 2017 Subjective Pt evaluation today including: conversation w/ patient, physical exam, chart review, lab review Pt was seen and evaluated, chart reviewed. S/P ERCP yesterday for bile leak w/ stent placement. Noted relief of her symptoms immediately post operatively. Conitnues to feel well this AM. Has very mild RUQ soreness, more surgical pain than true pain. No longer having epigastric pain. Denies nausea, vomiting. No diarrhea, constipation. Is passing gas. Good urine output. Tolerated clears. ERCP 12/17/17: bile leak, biliary sphincterotomy, stent placed HIDA 12/16/17: bile leak Chest XR 12/16/17: negative CT ABD/Pelvis 12/15/17: No evidence of bowel obstruction. No evidence of free air Surgically absent gallbladder Small amount of fluid within the cholecystectomy bed as well as within Morison's pouch. This appears slightly increased from a study performed earlierin the day. Diagnostic considerations include delayed bile leak, delayed hemorrhage, or infection. There are no walled off collections to indicate an abscess. Cholecystectomy 12/07/17: The gallbladder was distended. The cystic duct was extremely narrow and very short. The common duct visually looked normal. The liver looked normal Review of Systems Constitutional: No fever, No chills, No sweats, No weakness Respiratory: No cough, No sputum, No wheezing, No shortness of breath Cardiac: No chest pain, No orthopnea, No edema, No palpitations Abdomen: No pain, No nausea, No vomiting, No diarrhea, No constipation, No GI bleeding, No dysphagia, No acolic stools, No jaundice, No dark urine Skin: No rash, No itch, No new/changing skin lesions, No jaundice Medications Current Inpatient Medications Medications (Trade) Dose Ordered Sig/Jewels Route Start Time Stop Time Status Last Admin Dose Admin Ioversol (Optiray 320) 115 ml UD PRN IV 12/15/17 21:45 12/19/17 21:44 Lamotrigine (Lamictal Tab) 500 mg HS PO 12/16/17 21:00 01/15/18 20:59 12/16/17 21:17 500 MG Lamotrigine (Lamictal Tab) 400 mg QAM PO 12/16/17 09:00 01/15/18 08:59 12/17/17 08:38 400 MG Nortriptyline HCl (Pamelor Cap) 75 mg HS PO 12/16/17 21:00 01/15/18 20:59 12/16/17 21:17 75 MG Glucose (Glucose 40% Gel) 15-30 GRAMS 15 GRAMS... UD PRN PO 12/16/17 00:30 01/15/18 00:29 Glucose (Glucose Chew Tab) 4-8 Tablets 4 Tabl... UD PRN PO 12/16/17 00:30 01/15/18 00:29 Dextrose (Dextrose 50% 50ML Syringe) 25-50ML OF 50% DW IV FOR... UD PRN IV 12/16/17 00:30 01/15/18 00:29 Glucagon (Glucagon Inj) 1 mg UD PRN SQ 12/16/17 00:30 01/15/18 00:29 Ondansetron HCl (Zofran Inj) 4 mg Q6H PRN IV 12/16/17 01:15 01/15/18 01:14 12/16/17 23:50 4 MG Hydromorphone HCl (Dilaudid Inj) 0.5 mg Q1H PRN IV 12/16/17 08:30 12/29/17 23:14 Piperacillin Sod/ Tazobactam Sod 3.375 gm/Dextrose 115 ml @ 28.75 mls/ hr Q8H IV 12/16/17 18:00 12/18/17 17:59 12/17/17 01:53 28.75 MLS/HR Miscellaneous Information (Consult) 1 ea UD PRN N/A 12/16/17 12:30 01/15/18 12:29 Zonisamide (Zonegran) 100 mg QAM PO 12/17/17 09:00 01/16/18 08:59 12/17/17 08:39 100 MG Zonisamide (Zonegran) 200 mg QPM PO 12/16/17 21:00 01/15/18 20:59 12/16/17 21:19 200 MG Oxycodone/ Acetaminophen (Percocet 5-325mg Tab) 1 tab Q4H PRN PO 12/16/17 16:15 12/30/17 16:14 12/16/17 19:47 1 TAB Oxycodone/ Acetaminophen (Percocet 5-325mg Tab) 2 tab Q4H PRN PO 12/16/17 16:15 12/30/17 16:14 Docusate Sodium (coLACE CAP) 100 mg BID PO 12/16/17 21:00 01/15/18 20:59 12/17/17 08:38 100 MG Lactated Ringer's 1,000 ml @ 150 mls/hr Q6H40M IV 12/16/17 19:00 01/15/18 18:59 12/17/17 08:38 150 MLS/HR Miscellaneous Information (Consult Glycemic Management Pharmacy) 1 ea UD PRN N/A 12/16/17 22:05 01/15/18 22:04 Insulin Aspart (novoLOG ASPART) SLIDING SCALE If C... ACHS SC 12/17/17 12:00 01/16/18 11:59 Insulin Glargine (Lantus Solostar Pen) 24 units QPM SC 12/17/17 16:45 01/16/18 16:44 Objective Vital Signs Date Time Temp Pulse Resp B/P (MAP) Pulse Ox O2 Delivery O2 Flow Rate FiO2 12/17/17 07:15 Room Air 12/17/17 07:06 36.9 57 18 102/68 (79) 97 Room Air 12/17/17 03:09 36.8 88 16 93/62 (72) 97 Room Air 12/16/17 23:56 Room Air 12/16/17 22:56 36.7 84 18 106/66 (79) 98 Room Air 12/16/17 18:45 36.9 97 18 115/74 (88) 98 Room Air 12/16/17 17:04 36.8 89 18 130/86 (101) 99 Nasal Cannula 2.0 12/16/17 16:13 36.8 89 18 119/80 (93) 99 Nasal Cannula 3.0 12/16/17 15:45 99 Nasal Cannula 2.0 12/16/17 15:45 99 Nasal Cannula 2.0 12/16/17 15:45 37.4 99 16 124/67 (86) 99 Nasal Cannula 2.0 12/16/17 15:38 83 15 100 12/16/17 15:38 85 15 12/16/17 15:36 132/74 12/16/17 15:33 86 11 12/16/17 15:33 85 11 100 12/16/17 15:31 130/72 12/16/17 15:28 87 12 12/16/17 15:28 85 12 100 12/16/17 15:27 90 22 100 12/16/17 15:27 94 22 12/16/17 15:26 127/78 12/16/17 15:22 89 17 100 12/16/17 15:22 36.8 85 16 127/78 (99) 100 Nasal Cannula 2 12/16/17 15:22 87 17 12/16/17 15:21 128/73 12/16/17 15:17 87 13 12/16/17 15:17 86 13 100 12/16/17 15:16 136/74 12/16/17 15:12 89 16 100 12/16/17 15:12 91 16 12/16/17 15:11 118/78 12/16/17 15:10 90 15 12/16/17 15:10 88 15 100 12/16/17 15:06 137/75 12/16/17 15:05 93 14 12/16/17 15:05 92 14 100 12/16/17 15:03 37.2 97 16 98 12/16/17 15:01 129/75 12/16/17 15:00 94 16 100 12/16/17 15:00 94 16 12/16/17 14:56 117/70 12/16/17 14:45 36.4 104 17 117/70 100 Oxymask 10 12/16/17 12:15 37.2 97 16 98 Physical Exam General Appearance: no apparent distress Eyes: PERRL ENT: hearing grossly normal Neck: supple, no JVD, trachea midline Respiratory/Chest: lungs clear, normal breath sounds, no respiratory distress, no accessory muscle use Cardiovascular: regular rate, rhythm, no edema, no gallop, no JVD Abdomen: normal bowel sounds, non tender, soft, no organomegaly, no pulsatile mass Neurologic/Psych: alert, normal mood/affect, oriented x 3 Skin: normal color, warm/dry, no rash Laboratory Results Last 24 Hours Test 12/16/17 12:08 12/16/17 12:28 12/16/17 14:59 12/16/17 17:59 White Blood Count 11.43 K/uL Red Blood Count 3.87 M/uL Hemoglobin 12.2 g/dL Hematocrit 35.3 % Mean Corpuscular Volume 91.2 fL Mean Corpuscular Hemoglobin 31.5 pg Mean Corpuscular Hemoglobin Concent 34.6 g/dl Platelet Count 313 K/uL Mean Platelet Volume 8.8 fL Neutrophils (%) (Auto) 83.5 % Lymphocytes (%) (Auto) 9.8 % Monocytes (%) (Auto) 6.4 % Eosinophils (%) (Auto) 0.0 % Basophils (%) (Auto) 0.0 % Neutrophils # (Auto) 9.55 K/uL Lymphocytes # (Auto) 1.12 K/uL Monocytes # (Auto) 0.73 K/uL Eosinophils # (Auto) 0.00 K/uL Basophils # (Auto) 0.00 K/uL RDW Standard Deviation 41.6 fL RDW Coefficient of Variation 12.5 % Immature Granulocyte % (Auto) 0.3 % Immature Granulocyte # (Auto) 0.03 K/uL Troponin I < 0.015 ng/ml Bedside Glucose 236 mg/dl 209 mg/dl 242 mg/dl Test 12/16/17 23:44 12/17/17 03:03 12/17/17 05:43 12/17/17 07:07 Bedside Glucose 278 mg/dl 198 mg/dl 189 mg/dl White Blood Count 7.01 K/uL Red Blood Count 3.19 M/uL Hemoglobin 10.0 g/dL Hematocrit 28.8 % Mean Corpuscular Volume 90.3 fL Mean Corpuscular Hemoglobin 31.3 pg Mean Corpuscular Hemoglobin Concent 34.7 g/dl Platelet Count 241 K/uL Mean Platelet Volume 9.2 fL Neutrophils (%) (Auto) 71.5 % Lymphocytes (%) (Auto) 19.5 % Monocytes (%) (Auto) 8.6 % Eosinophils (%) (Auto) 0.0 % Basophils (%) (Auto) 0.0 % Neutrophils # (Auto) 5.01 K/uL Lymphocytes # (Auto) 1.37 K/uL Monocytes # (Auto) 0.60 K/uL Eosinophils # (Auto) 0.00 K/uL Basophils # (Auto) 0.00 K/uL RDW Standard Deviation 39.6 fL RDW Coefficient of Variation 12.1 % Immature Granulocyte % (Auto) 0.4 % Immature Granulocyte # (Auto) 0.03 K/uL Sodium Level 139 mmol/L Potassium Level 3.6 mmol/L Chloride Level 108 mmol/L Carbon Dioxide Level 24 mmol/L Anion Gap 6.0 mmol/L Blood Urea Nitrogen 8 mg/dl Creatinine 0.71 mg/dl Est Creatinine Clear Calc Drug Dose 138.8 ml/min Estimated GFR () 134.3 Estimated GFR (Non- 115.9 BUN/Creatinine Ratio 11.2 Random Glucose 166 mg/dl Estimated Average Glucose 171 mg/dl Hemoglobin A1c 7.6 % Calcium Level 8.2 mg/dl Total Bilirubin 0.5 mg/dl Aspartate Amino Transf (AST/SGOT) 7 U/L Alanine Aminotransferase (ALT/SGPT) 22 U/L Alkaline Phosphatase 71 U/L Total Protein 6.1 gm/dl Albumin 2.6 gm/dl Globulin 3.5 gm/dl Albumin/Globulin Ratio 0.8 Lipase 3567 U/L Assessment and Plan Low fat diet ERCP in one month for stent removal Broad spectrum ABX for a total of 3 days GI to sign off. No GI contraindication to discharge it pt is tolerating low fat diet.
--- NOTE | 2017-12-17 10:07 | Pharmacy Progress Note ---
Glycemic Control Intl Consult Date of Service Dec 17, 2017. Scope Glycemic Pharmacist consulted by Dr Rocha on 12/16/17 for glycemic control and to write orders per [facility] inpatient glycemic control protocol Objective Weight (Kilograms): 87.000 Accuchecks BSG (last 24hrs): Test 12/16/17 12:28 12/16/17 14:59 12/16/17 17:59 12/16/17 23:44 Bedside Glucose 236 mg/dl (70-90) 209 mg/dl (70-90) 242 mg/dl (70-90) 278 mg/dl (70-90) Test 12/17/17 03:03 12/17/17 05:43 12/17/17 07:07 Bedside Glucose 198 mg/dl (70-90) 189 mg/dl (70-90) Random Glucose 166 mg/dl (70-99) Laboratory Data (last 24hrs) Test 12/16/17 12:08 12/17/17 07:07 White Blood Count 11.43 K/uL 7.01 K/uL Red Blood Count 3.87 M/uL 3.19 M/uL Hemoglobin 12.2 g/dL 10.0 g/dL Hematocrit 35.3 % 28.8 % Mean Corpuscular Volume 91.2 fL 90.3 fL Mean Corpuscular Hemoglobin 31.5 pg 31.3 pg Mean Corpuscular Hemoglobin Concent 34.6 g/dl 34.7 g/dl Platelet Count 313 K/uL 241 K/uL Mean Platelet Volume 8.8 fL 9.2 fL Neutrophils (%) (Auto) 83.5 % 71.5 % Lymphocytes (%) (Auto) 9.8 % 19.5 % Monocytes (%) (Auto) 6.4 % 8.6 % Eosinophils (%) (Auto) 0.0 % 0.0 % Basophils (%) (Auto) 0.0 % 0.0 % Neutrophils # (Auto) 9.55 K/uL 5.01 K/uL Lymphocytes # (Auto) 1.12 K/uL 1.37 K/uL Monocytes # (Auto) 0.73 K/uL 0.60 K/uL Eosinophils # (Auto) 0.00 K/uL 0.00 K/uL Basophils # (Auto) 0.00 K/uL 0.00 K/uL Anion Gap 6.0 mmol/L BUN/Creatinine Ratio 11.2 Blood Urea Nitrogen 8 mg/dl Creatinine 0.71 mg/dl Hemoglobin A1c 7.6 % Potassium Level 3.6 mmol/L Sodium Level 139 mmol/L HbA1c Test 12/17/17 07:07 Hemoglobin A1c 7.6 % (4.5-5.6) H Recent Pertinent Medications Outpatient Anti-diabetic Regimen: * Lantus 24 units SQ HS * Humalog with meals per scale * Uses carb ratio of 1 unit for every 10g CHO consumed * The patient is currently receiving: * Basal insulin: Lantus 12 units every 24 hours given at bedtime * Correctional Insulin: Novolog Correction per scale ACHS Goal Range: Low 120 mg/dL - High 160 mg/dL Correction Factor: 25 mg/dL/unit * Prandial insulin: Per carb ratio of 1 unit per 9 grams CHO consumed Risk Factors for Insulin Resistance: * Infection * Recent Surgery * Diet Assessment & Plan ASSESSMENT: * 27yo T1DM female with adequate outpatient control per recent A1c. Pt is s/p lap cholecystectomy x ~ 1 week ago. Pt found to have biliary leak and now POD # 1 s/p ERCP. * Pt NPO since 12/15/17; now resuming a diet this morning * Pt was ordered 50% of her outpatient basal insulin dose while NPO. All CHO coverage held for no PO intake * Recommended to give 50-80% of basal insulin dose while NPO. Typically, type one diabetics require 80-100% of their basal insulin dose even when NPO since they do not make any endogenous insulin and their regimens are typically split 50% basal:50%prandial insulin. BSGs elevated since admission secondary to stress , surgery, ?infection? and inadequate basal insulin dosing * 12/16/17: * BSGs 298, 183, 236, 242, 278 * Patient received 32 units of insulin (12 units of basal with Lantus + 20 units of correctional insulin with NovoLog) * 12/17/17: * BSGs 198, 189, 148 * Patient resuming a diet, will need to re-initiate CHO coverage and titrate basal insulin back to outpatient dosing PLAN FOR INPATIENT GLYCEMIC CONTROL: * Basal insulin * Lantus 24 units SQ HS {this is outpatient dosing} * Will give first dose this early this evening with dinner instead of HS as patient only received 12 units yesterday * Bolus insulin * NovoLog per scale ACHS or Q6hrs while NPO * Goal Range: Low 100 mg/dL - High 140 mg/dL * Correction Factor: 30 mg/dL/unit * Nutritional / Prandial insulin per carb ratio of 1 unit per 10 grams CHO consumed * Please note that the plan above was derived based on current level of insulin resistance and hospital stress. These recommendations are appropriate for inpatient admission only. Plan of care upon discharge will need to be reassessed to avoid potential outpatient hypo/hyperglycemia. Thank you. Looking ahead to discharge: * A1c = 7.6% on 12/17/17 * Goal A1c is <7% based on age/comorbidities and the elements of diabetes care scoring scale. * A1c ranges from 7.3-7.6% over the last 8 years. * No changes needed at discharge, patient may resume current outpatient regimen and titrate as needed with endo.
[2017-12-17 10:44] VITALS: BP 110/64; PULSE 105; TEMP 36.8; O2SAT 99
[2017-12-17] MEDS ORDERED: PROMETHAZINE HCL INJ 25 MG in SODIUM CHLORIDE 0.9% 50ML 50 ML IV ONE (12:00)
[2017-12-17] MEDS ORDERED: LORAZEPAM INJ 0.5 MG in SYRINGE 0.25 ML IV ONE (12:00)
--- NOTE | 2017-12-17 12:42 | Discharge Instructions ---
Discharge Instructions Date of Service Dec 17, 2017. Admission Reason for Admission: Abdominalpain, S/P Cholecystectomy Discharge Discharge Diagnosis / Problem: same, s/p ERCP with biliary stent placement Discharge Goals Goal(s): Decrease discomfort, Improve function Activity Recommendations Activity Limitations: per Instructions/Follow-up section No heavy lifting over 10 pounds for 2 weeks No strenuous activity until cleared by surgeon No submerging incisions underwater for 2 weeks (no bathing, swimming, or hot tubs) No driving while taking narcotic pain medication or until you are pain free. . Instructions / Follow-Up Instructions / Follow-Up You may shower. Gently clean incisions with soap and water. Pat dry Walking and light activity is encouraged to prevent blood clots from forming You may continue narcotic pain medication as needed for moderate to severe pain. May take extra strength Tylenol/Ibuprofen as needed for pain. Follow-up with Dr. Barnhart as scheduled Follow-up with GI for repeat ERCP and stent removal in 1 month Current Hospital Diet Patient's current hospital diet: Low Fat Diet, Diabetes Type 1 Diet Discharge Diet Recommended Diet: Low Fat Diet Procedures Procedures Performed: Endoscopic Retrograde Cholangiopancreatography, sphinterotomy with Placement of Biliary Stent Pending Studies Studies pending at discharge: no Laboratory Results Hemoglobin A1c Test 12/17/17 07:07 Range/Units Estimated Average Glucose 171 mg/dl Hemoglobin A1c 7.6 H 4.5-5.6 % Medical Emergencies . Who to Call and When: Medical Emergencies: If at any time you feel your situation is an emergency, please call 911 immediately. . Non-Emergent Contact Non-Emergency issues call your: Primary Care Provider, Surgeon Call Non-Emergent contact if: you have a fever, temperature is above 101, your pain is not controlled, your pain is worsening, your pain is unusual for you, wound has increased drainage, wound has increased redness, wound has increased pain . "Provider Documentation" section prepared by Sandra Espino. . VTE Core Measure Inpt VTE Proph given/why not?: SCD's
[2017-12-17] MEDS ORDERED: AMOX875T PO (15:13)
[2017-12-17] MEDS ORDERED: OXYC-57 PO (15:13)
[2017-12-17 15:26] VITALS: BP 110/67; PULSE 105; TEMP 36.7; O2SAT 99
--- NOTE | 2017-12-17 15:38 | Discharge Instructions ---
Discharge Instructions Date of Service Dec 17, 2017. Admission Reason for Admission: Abdominalpain, S/P Cholecystectomy Discharge Discharge Diagnosis / Problem: Abdominal pain, ERCP Discharge Goals Goal(s): Decrease discomfort, Improve disease control, Diagnostic testing, Therapeutic intervention Activity Recommendations Activity Limitations: per Instructions/Follow-up section . Instructions / Follow-Up Instructions / Follow-Up Please see gastroenterology's discharge instructions with regard to your activity limitations after your ERCP procedures. If your pain returns or you have a fever of 101 or more, please return to the Emergency Department for evaluation. While here we also medically managed your diabetes and seizures and migraines. No changes have been made to these meds, please continue your home medications as prescribed. Your surgeon has also written a script for pain medication, please take as prescribed. Please also take your antibiotic medication as prescribed. Be well A Renato Current Hospital Diet Patient's current hospital diet: Low Fat Diet, Diabetes Type 1 Diet Discharge Diet Recommended Diet: Diabetes Type 1 Diet Procedures Procedures Performed: Endoscopic Retrograde Cholangiopancreatography, sphinterotomy with Placement of Biliary Stent Pending Studies Studies pending at discharge: no Laboratory Results Hemoglobin A1c Test 12/17/17 07:07 Range/Units Estimated Average Glucose 171 mg/dl Hemoglobin A1c 7.6 H 4.5-5.6 % Medical Emergencies . Who to Call and When: Medical Emergencies: If at any time you feel your situation is an emergency, please call 911 immediately. . Non-Emergent Contact Non-Emergency issues call your: Primary Care Provider, Pickle Pumper, Surgeon . . "Provider Documentation" section prepared by Claudia Gross. .
[2017-12-17 15:41] VITALS: BP 110/67; PULSE 105; TEMP 36.7; O2SAT 99
[2017-12-17] MEDS ORDERED: INSULIN GLARGINE SOLOSTAR 100 UNITS/ML 3 ML PEN SC SCH ×2 (16:45→18:00)
--- NOTE | 2017-12-17 19:10 | Family Medicine Progress Note ---
Progress Note Date of Service Dec 17, 2017. Subjective Pt seen and examined at bedside. At present, patient is somewhat fatigued 2/2 poor sleep overnight but reports minimal abdominal pain. Monitoring glucose per hospital protocol and has good awareness of home regimen. No seizure d/o sx and tolerating medications well. Has appetite and desires to eat. ROS See HPI for pertinent positives and negatives. Objective Physical Exam General Appearance: WD/WN, no apparent distress Respiratory/Chest: chest non-tender, lungs clear, normal breath sounds, no respiratory distress Cardiovascular: regular rate, rhythm, no edema, no murmur Abdomen: normal bowel sounds, soft, no organomegaly, + tenderness (mild central ) Assessment and Plan 27 y/o female h/o type 1 diabetes and seizure disorder p/w abd pain w/ bile leak s/p ERCP Abd pain - improved considerably, tolerating POI well Diabetes type 1 - continue lantus w/ aspart w/ meals per home regimen with close monitoring Seizure d/o - continue home medications Migraine HERRERA - holding nortriptyline while inpatient. Given phenergen and ativan on morning of discharge due to developing symptoms. FULL CODE Resident Tracking Resident Involvement: Resident Care Provided Care Provided: Adult Hospital Medicine
--- NOTE | 2017-12-20 12:00 | Discharge Summary ---
Discharge Summary Dates Admission Date / Time: Dec 15, 2017 at 23:10 Discharge Date: Dec 17, 2017 Dispostion / Condition Discharge Disposition: Home Condition at Discharge: Good Principal Diagnosis (1) Abdominal pain (2) S/P cholecystectomy Problem List (1) Vertigo (2) Urinary tract infection (3) Hyperglycemia (4) Anxiety (5) Diabetes (6) Migraines Consultations / Procedures Consultations: GI consultation Medicine consultation Procedures: ERCP with biliary stent placement Vaccinations: None Pending Studies / Follow-Up None Medication Reconciliation New Medications: Amoxicillin & Pot Clavulanate (Augmentin 875-125 mg) 1 Tab Tab 1 TAB PO BID for 3 Days, #6 TAB Oxycodone/Acetaminophen 5MG/325MG (Percocet 5MG/325MG) Tab 1 TABLET PO Q6H PRN for Pain, #12 TAB Continued Medications: Bisacodyl (Dulcolax) 5 Mg Tab 2 TAB PO TODAY for 1 Day, #2 TAB Insulin Glargine (Lantus) 100 Unit/Ml Inj 24 UNITS SC QPM Insulin Lispro (Human) (Humalog) 100 Unit/Ml Inj SC AC SLIDING SCALE, PER PT uses insulin to CHO ratio of 1 unit for every 10g CHO consumed Lamotrigine (Lamictal) 200 Mg Tab 400 MG PO QAM Lamotrigine (Lamictal) 100 Mg Tab 500 MG PO HS Multivitamins/Minerals (Mvi With Minerals) Tab 1 TAB PO DAILY, TAB Nortriptyline Hcl (Pamelor) 75 Mg Cap 75 MG PO HS, CAP Sennosides-Docusate Sodium (Senokot S) 1 Tab Tab 2 TAB PO TID, #30 TAB Zonisamide (Zonegran) 100 Mg Cap 200 MG PO QPM Zonisamide (Zonegran) 100 Mg Cap 100 MG PO QAM, CAP Discontinued Medications: Oxycodone Ir (Roxicodone Ir) 5 Mg Tab 1 TAB PO Q4H PRN for Pain, #6 TAB Admission HPI Per the Admitting provider: This is a 27-year-old female who underwent a laparoscopic cholecystectomy at [facility] 8 days ago. She had been doing well until this morning at 2:00 a.m. when she had the acute onset of abdominal pain that she describes in the right upper abdomen, extending down then toward the right iliac fossa. The pain was sharp and stabbing and exacerbated by motion. She presented to the emergency room where a workup was performed. Her white count was normal. She had a CT scan that showed postsurgical changes of cholecystectomy with a small amount of free fluid in the pelvis and moderate stool burden that would be consistent with constipation. The patient has had about 5 bowel movements since surgery, the most recent was 2 days ago. It was formed. There was no blood. She has not had any dysuria or hematuria. While in the Emergency Room, she was given analgesics and her pain seemed to resolve and she was discharged. She then went home and had the onset of pain again in the similar location, only this time the severity seemed to be worse. She has returned to the Emergency Room. She has had nausea but has not vomited. She has not had another bowel movement. Again, no urinary symptoms. The pain is exacerbated by motion. She has not had fever that she is aware of. Hospital Course (1) Abdominal pain Patient was hospitalized under observation for potential bile leak given recent laparoscopic cholecystectomy. Patient was started on IV fluids, IV antibiotics , IV pain management, kept NPO, activity as tolerated, and scds. HIDA scan was ordered in the morning to evaluate for bile leak. HIDA scan showed evidence of bile leak at the level of remnant cystic duct. Patient unfortunately had 10/10 substernal chest pain on the transportation from HIDA scan in which a code purple was called. Patient was sent to critical care for observation. Troponin , CXR were within normal limits. EXG did showed some t wave inversion and nonspecific changes. She was stable in the ICU with blood pressure 12/70's, HR in the 80's, and pulse ox 98% on room air. She was taken to operating room later in the day for ERCP in which she had a biliary stent placed. She was transferred back to medical/surgical floor for post procedure care. Diet was advanced to sips and chips, PO medication was added , and IV fluids continued at 150 mls/hr for pancreatitis precaution. Patient evaluated later in the afternoon after her procedure and felt 10x better. Abdomen completely soft and nontender on examination. She was kept overnight for observation. Labs in the morning showed no leukocytosis. She was afebrile. Abdominal pain resolved. Tolerated sips and chips. Her lipase was elevated at 3567 however she was asymptomatic. GI advance diet to low fat in which she tolerated. She was discharged home on HD # 2 in stable condition. Discharge Instructions as given to patient Copies To Primary Care Provider: Dayana Moeller C.R.N.P.
== END 2017-12-17 17:49 | disposition home or self-care (01) | DRG 395 ==
LOC: C.EDB 17:30 → C.MSW 23:10 → ENRESERV 23:22 → C.MSICU 12-16 12:13 → C.MSN 12-16 14:52
PROVIDERS: ADMIT Surgery; ATTEND Surgery
PROC: 0F798DZ Dilation of Common Bile Duct with Intraluminal Device, Via Natural or Artificial Opening Endoscopic (ICD-10-PCS; principal; 2017-12-16 09:00)
DX: K91.89 Other postprocedural complications and disorders of digestive system (principal); Y83.6 Removal of other organ (partial) (total) as the cause of abnormal reaction of the patient, or of later complication, without mention of misadventure at the time of the procedure; R07.9 Chest pain, unspecified; R94.31 Abnormal electrocardiogram [ECG] [EKG]; R00.0 Tachycardia, unspecified; R06.82 Tachypnea, not elsewhere classified; K59.00 Constipation, unspecified; E10.65 Type 1 diabetes mellitus with hyperglycemia; G40.409 Other generalized epilepsy and epileptic syndromes, not intractable, without status epilepticus; G43.909 Migraine, unspecified, not intractable, without status migrainosus; F41.9 Anxiety disorder, unspecified; Z96.652 Presence of left artificial knee joint; Z90.49 Acquired absence of other specified parts of digestive tract; Z79.899 Other long term (current) drug therapy; Z88.8 Allergy status to other drugs, medicaments and biological substances

== ENCOUNTER 2018-01-21 14:22 | Observation (INO) | payer OTHER ==
[~2018-01-21] VITALS: Ht 175.3 cm; Wt 87.0 kg
[~2018-01-21 14:22] MED LIST changes: +BISA-16 PO; +OXYC-57 PO; -OXYC1TAB3 PO; -SENN-65 PO
[2018-01-21] MEDS ORDERED: OPTIRAY 320 IV PRN (15:45)
[2018-01-21] MEDS ORDERED: ONDANSETRON INJ 2 MG/ML 2 ML VIAL IV STA (16:28)
[2018-01-21] MEDS ORDERED: POLYSOL50 OPL (16:30)
[2018-01-21 16:49] LABS: HEMATOCRIT 36.9 % (37-47); HEMOGLOBIN 12.9 g/dL (12.0-16.0); IG# 0.02 K/uL (0.00-0.02); LYMPH % 19.3 %; LYMPH ABS # 1.26 K/uL (1.2-3.4); MEAN CELL VOLUME 89.8 fL (80-100); MEAN CORPUSCULAR HEMOGLOBIN 31.4 pg (25-34); MEAN PLATELET VOLUME 9.2 fL (7.4-10.4); MONO % 4.9 %; MONO ABS # 0.32 K/uL (0.11-0.59); NEUT % 75.5 %; NEUT ABS # 4.92 K/uL (1.4-6.5); PLATELET COUNT 231 K/uL (130-400); RED CELL DISTRIBUTION WIDTH SD 42.4 fL (36.4-46.3); WHITE BLOOD COUNT 6.52 K/uL (4.8-10.8)
[2018-01-21 16:58] LABS: PTT PATIENT 26.1 SECONDS (21.0-31.0)
[2018-01-21] MEDS: HYDROmorphone INJ 1 MG/ML SYR IV PRN ×2 (17:01→19:37)
[2018-01-21 17:08] LABS: ALBUMIN 4.2 gm/dl (3.4-5.0); CALCIUM 9.2 mg/dl (8.5-10.1); CREATININE 1.02 mg/dl (0.60-1.20); POTASSIUM 4.1 mmol/L (3.5-5.1)
--- NOTE | 2018-01-21 17:08 | DIAGNOSTIC IMAGING REPORT ---
ABDOMEN 2VIEW W/PA CHEST RTN CLINICAL HISTORY: epigastric pain COMPARISON STUDY: Chest x-ray dated 12/16/2017 FINDINGS: Erect chest reveals no free intraperitoneal air. There is no focal pulmonary consolidation. Erect and supine views the abdomen reveal surgical clips in the right upper quadrant consistent with a prior cholecystectomy. A right upper quadrant stent, likely represent a biliary enteric stent is visualized. There are no abnormally dilated loops of large or small bowel. There are no transition zones indicate bowel obstruction. There is moderate stool within the colon. IMPRESSION: No evidence of bowel obstruction. No evidence of free air. Electronically signed by: Jono Arias M.D. 01/21/2018 5:06 PM Dictated Date/Time: 01/21/2018 5:05 PM
[2018-01-21 17:13] LABS: TOTAL PROTEIN 8.2 gm/dl (6.4-8.2)
--- NOTE | 2018-01-21 17:38 | DIAGNOSTIC IMAGING REPORT ---
CT ANGIOGRAM OF THE CHEST CLINICAL HISTORY: Chest and epigastric pain. Shortness of breath. Vomiting. RECENT CHOLECYSTECTOMY. COMPARISON STUDY: 02/25/2015 TECHNIQUE: Following the IV administration of 92 mL of Optiray-320, CT angiogram of the thorax was performed from the thoracic inlet to the lung bases utilizing the pulmonary embolus protocol. Images are reviewed in the axial, sagittal, and coronal planes. IV contrast was administered without complication. MIP imaging was performed. A dose lowering technique was utilized adhering to the principles of ALARA. CT DOSE: 891.06 mGy.cm FINDINGS: No pathologically enlarged axillary mediastinal or hilar lymph nodes were visualized. There was no evidence of thoracic aortic dilatation. There were no pulmonary artery filling defects to indicate acute pulmonary embolism. No pleural effusions are visualized. There are mild dependent atelectatic changes. There is no focal pulmonary consolidation. There is a 3 mm pleural-based nodule within the right lower lobe. This remains unchanged the prior 2014 study. IMPRESSION: 1. No acute intrathoracic findings 2. No evidence of acute pulmonary embolism 3. No evidence of focal pulmonary consolidation. Electronically signed by: Jono Arias M.D. 01/21/2018 5:37 PM Dictated Date/Time: 01/21/2018 5:33 PM
--- NOTE | 2018-01-21 17:44 | DIAGNOSTIC IMAGING REPORT ---
ABD/PELVIS IV CONTRAST ONLY CLINICAL HISTORY: 27 years-old Female presenting with epigastric pain and sob recent jonathan. TECHNIQUE: Multidetector CT of the abdomen and pelvis was performed after the administration of intravenous contrast. IV contrast: 92 mL of Optiray 320. A dose lowering technique was used consistent with the principles of ALARA (as low as reasonably achievable). COMPARISON: 12/15/2017. CT DOSE (mGy.cm): The estimated cumulative dose is 891.06 inclusive of the CTA chest. FINDINGS: [employer] topogram: Cholecystectomy clips and common bile duct stent noted. Lung bases: Minimal basilar opacities, likely atelectasis. Normal heart size. No pericardial or pleural effusion. Liver: Normal morphology. No liver lesion. Patent hepatic vasculature. Biliary: Common bile duct stent in place. Mild biliary ductal prominence likely a reservoir effect in the post cholecystectomy state. Gallbladder surgically absent. Pancreas: Normal. Spleen: Normal. Adrenal glands: Normal. Kidneys and ureters: Nonobstructing punctate calculus at the lower pole the right kidney. Possible punctate calculus also noted at the lower pole the left kidney. No hydronephrosis. Normal enhancement of the kidneys. Ureters grossly normal. Possibly of intra-abdominal fat makes evaluation of the ureter somewhat difficult. Bladder: Normal. Pelvic organs: Uterus and ovaries normal. Dominant follicle suggested in the right ovary. Bowel: Mild apparent wall thickening of the proximal transverse colon likely due to peristalsis/underdistention. The appendix is normal and may contain prior oral contrast or appendicolith. No bowel obstruction. Fluid noted throughout the small bowel. Peritoneal cavity: Trace free fluid in the pelvis. Lymph nodes: No enlarged lymph nodes in the abdomen or pelvis. Vasculature: Aorta and IVC patent and normal in caliber. Abdominal wall: Normal. Musculoskeletal: Normal. IMPRESSION: 1. Interval evolution of postsurgical changes related to cholecystectomy. The previously noted fluid in Morison's pouch is no longer present. Prominence of the bile ducts likely a reservoir effect in the post cholecystectomy state. The common bile duct stent remains in place. 2. No postsurgical complication. No bowel obstruction. 3. Nonobstructing bilateral nephrolithiasis. Electronically signed by: Omero Bee M.D. 01/21/2018 5:43 PM Dictated Date/Time: 01/21/2018 5:37 PM
--- NOTE | 2018-01-21 18:11 | EMERGENCY ROOM VISIT NOTE ---
History Report prepared by Marta: Trace Kulkarni Under the Supervision of: Dr. Rk Ramsey M.D. First contact with patient: 15:17 Chief Complaint: ABDOMINAL PAIN Stated Complaint: ABDOMINAL PAIN,THROWING UP Nursing Triage Summary: pt here with abd pains since this am. pt states had jonathan in nov, had to go back to er in december for pain after a clamp moved and had leaking bile in gut. pt states had one emesis. History of Present Illness The patient is a 27 year old female who presents to the Emergency Room with complaints of constant upper abdominal pain beginning this morning. 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 The patient also complains of one episode of vomiting and SOB. She rates her current pain as a 7/10 in severity. She denies abnormal vaginal discharge but notes she finished her period this week. The patient had a cholecystectomy a little over a month ago. She states that she had a bile leakage last month and had a biliary stent placed. She is scheduled to have the stent removed later this month. The patient is not on any blood thinning medication. Source of History: patient Onset: This morning Position: abdomen (upper) Symptom Intensity: 7/10 Timing: constant Associated Symptoms: + SOB, + vomiting (one episode) Note: Negative: abnormal vaginal discharge. Review of Systems See HPI for pertinent positives and negatives. A total of ten systems were reviewed and were otherwise negative. Past Medical & Surgical Medical Problems: (1) Diabetes (2) Migraines (3) Seizures Surgical Problems: (1) H/O: (2) S/P cholecystectomy Family History FH: multiple sclerosis Social History Smoking Status: Never Smoker Drug Use: none Marital Status: Housing Status: lives with significant other Occupation Status: employed Current/Historical Medications Scheduled Insulin Glargine (Lantus), 19 UNITS SC QPM Insulin Lispro (Human) (Humalog), SC AC Lamotrigine (Lamictal), 400 MG PO QAM Lamotrigine (Lamictal), 500 MG PO HS Multivitamins/Minerals (Mvi With Minerals), 1 TAB PO DAILY Nortriptyline Hcl (Pamelor), 75 MG PO HS Polymyxin/Trimethoprim Oph (Polytrim Oph), 2 DROPS OPL Q3HRS Zonisamide (Zonegran), 200 MG PO QPM Zonisamide (Zonegran), 100 MG PO QAM Allergies Coded Allergies: No Known Allergies (Unverified , 12/15/17) Physical Exam Vital Signs Date Time Temp Pulse Resp B/P (MAP) Pulse Ox O2 Delivery O2 Flow Rate FiO2 01/21/18 17:44 88 20 122/77 100 Room Air 01/21/18 17:00 82 18 105/73 99 Room Air 01/21/18 14:26 36.6 94 16 130/73 100 Room Air Physical Exam Physical Exam GENERAL: She is oriented to person, place, and time. She appears well- developed and well-nourished. She does not appear distressed. ____ HENT: Exam performed. Head: Normocephalic and atraumatic. Right Ear: External ear normal. No mastoid tenderness. Left Ear: External ear normal. No mastoid tenderness. Mouth/Throat: The oropharynx is clear and moist. No trismus in the jaw. No dental abscesses or uvula swelling. No oropharyngeal exudate or tonsillar abscesses. ____ EYES: Conjunctivae and EOM are normal. Pupils are equal, round, and reactive to light. Right eye exhibits no discharge. Left eye exhibits no discharge. No scleral icterus. ____ NECK: Normal range of motion. Neck supple. No JVD present. No spinous process tenderness present. No carotid bruit present. No rigidity. No tracheal deviation and normal range of motion present. No Brudzinski's sign and no Kernig 's sign noted. ____ CV: Normal rate, regular rhythm, normal heart sounds and intact distal pulses. There is no peripheral edema. Palpable radial pulses bue. ____ PULM/CHEST: Effort normal and breath sounds normal. No respiratory distress. No stridor. She has no wheezes. She has no rales. Chest Wall: She exhibits no tenderness. ____ ABD: The abdomen is soft. Bowel sounds are normal. She has no distension. No mass is present. Diffuse tenderness to palpation. There is no rebound, no guarding, no Britt's sign and no tenderness at McBurney's point. Rovsig negative MUSC/SKEL: Normal range of motion. There is no peripheral edema, tenderness or deformity. LYMPH: No cervical adenopathy. ____ NEURO: She is alert and oriented to person, place, and time. She has normal strength. No cranial nerve deficit or sensory deficit. Coordination and gait normal. GCS eye subscore is 4. GCS verbal subscore is 5. GCS motor subscore is 6. Cerebellar tests wnl. ____ SKIN: Skin is warm and dry. She is not diaphoretic. ____ PSYCH: She has a normal mood and affect. Her behavior is normal. Judgment and thought content normal. ____ Medical Decision & Procedures ER Provider Diagnostic Interpretation: Radiology results as stated below per my review and radiologist interpretation: CT ANGIOGRAM OF THE CHEST FINDINGS: No pathologically enlarged axillary mediastinal or hilar lymph nodes were visualized. There was no evidence of thoracic aortic dilatation. There were no pulmonary artery filling defects to indicate acute pulmonary embolism. No pleural effusions are visualized. There are mild dependent atelectatic changes. There is no focal pulmonary consolidation. There is a 3 mm pleural-based nodule within the right lower lobe. This remains unchanged the prior 2014 study. IMPRESSION: 1. No acute intrathoracic findings 2. No evidence of acute pulmonary embolism 3. No evidence of focal pulmonary consolidation. Electronically signed by: Jono Arias M.D. 01/21/2018 5:37 PM ABD/PELVIS IV CONTRAST ONLY FINDINGS: Logistics Analyst topogram: Cholecystectomy clips and common bile duct stent noted. Lung bases: Minimal basilar opacities, likely atelectasis. Normal heart size. No pericardial or pleural effusion. Liver: Normal morphology. No liver lesion. Patent hepatic vasculature. Biliary: Common bile duct stent in place. Mild biliary ductal prominence likely a reservoir effect in the post cholecystectomy state. Gallbladder surgically absent. Pancreas: Normal. Spleen: Normal. Adrenal glands: Normal. Kidneys and ureters: Nonobstructing punctate calculus at the lower pole the right kidney. Possible punctate calculus also noted at the lower pole the left kidney. No hydronephrosis. Normal enhancement of the kidneys. Ureters grossly normal. Possibly of intra-abdominal fat makes evaluation of the ureter somewhat difficult. Bladder: Normal. Pelvic organs: Uterus and ovaries normal. Dominant follicle suggested in the right ovary. Bowel: Mild apparent wall thickening of the proximal transverse colon likely due to peristalsis/underdistention. The appendix is normal and may contain prior oral contrast or appendicolith. No bowel obstruction. Fluid noted throughout the small bowel. Peritoneal cavity: Trace free fluid in the pelvis. Lymph nodes: No enlarged lymph nodes in the abdomen or pelvis. Vasculature: Aorta and IVC patent and normal in caliber. Abdominal wall: Normal. Musculoskeletal: Normal. IMPRESSION: 1. Interval evolution of postsurgical changes related to cholecystectomy. The previously noted fluid in Morison's pouch is no longer present. Prominence of the bile ducts likely a reservoir effect in the post cholecystectomy state. The common bile duct stent remains in place. 2. No postsurgical complication. No bowel obstruction. 3. Nonobstructing bilateral nephrolithiasis. Electronically signed by: Omero Bee M.D. 01/21/2018 5:43 PM ABDOMEN 2VIEW W/PA CHEST RTN FINDINGS: Erect chest reveals no free intraperitoneal air. There is no focal pulmonary consolidation. Erect and supine views the abdomen reveal surgical clips in the right upper quadrant consistent with a prior cholecystectomy. A right upper quadrant stent, likely represent a biliary enteric stent is visualized. There are no abnormally dilated loops of large or small bowel. There are no transition zones indicate bowel obstruction. There is moderate stool within the colon. IMPRESSION: No evidence of bowel obstruction. No evidence of free air. Electronically signed by: Jono Arias M.D. 01/21/2018 5:06 PM Laboratory Results 01/21/18 16:45 Red Blood Count 4.11, Mean Corpuscular Volume 89.8, Mean Corpuscular Hemoglobin 31.4, Mean Corpuscular Hemoglobin Concent 35.0, Mean Platelet Volume 9.2, Neutrophils (%) (Auto) 75.5, Lymphocytes (%) (Auto) 19.3, Monocytes (%) (Auto) 4.9, Eosinophils (%) (Auto) 0.0, Basophils (%) (Auto) 0.0, Neutrophils # (Auto) 4.92, Lymphocytes # (Auto) 1.26, Monocytes # (Auto) 0.32, Eosinophils # (Auto) 0.00, Basophils # (Auto) 0.00 01/21/18 16:30 Test 01/21/18 16:25 01/21/18 16:30 01/21/18 16:45 Urine Color YELLOW Urine Appearance CLEAR (CLEAR) Urine pH 7.5 (4.5-7.5) Urine Specific [place] 1.009 (1.000-1.030) Urine Protein NEG (NEG) Urine Glucose (UA) NEG (NEG) Urine Ketones NEG (NEG) Urine Occult Blood TRACE (NEG) Urine Nitrite NEG (NEG) Urine Bilirubin NEG (NEG) Urine Urobilinogen NEG (NEG) Urine Leukocyte Esterase TRACE (NEG) Urine WBC (Auto) 1-5 /hpf (0-5) Urine RBC (Auto) 0-4 /hpf (0-4) Urine Hyaline Casts (Auto) 0 /lpf (0-5) Urine Epithelial Cells (Auto) 10-20 /lpf (0-5) Urine Bacteria (Auto) NEG (NEG) Urine Test NEG (NEG) Anion Gap 6.0 mmol/L (3-11) Est Creatinine Clear Calc Drug Dose 96.6 ml/min Estimated GFR () 86.7 Estimated GFR (Non- 74.8 BUN/Creatinine Ratio 13.6 (10-20) Calcium Level 9.2 mg/dl (8.5-10.1) Total Bilirubin 0.5 mg/dl (0.2-1) Direct Bilirubin 0.1 mg/dl (0-0.2) Aspartate Amino Transf (AST/SGOT) 16 U/L (15-37) Alanine Aminotransferase (ALT/SGPT) 26 U/L (12-78) Alkaline Phosphatase 93 U/L (45-117) Total Protein 8.2 gm/dl (6.4-8.2) Albumin 4.2 gm/dl (3.4-5.0) Lipase 107 U/L (73-393) White Blood Count 6.52 K/uL (4.8-10.8) Red Blood Count 4.11 M/uL (4.2-5.4) Hemoglobin 12.9 g/dL (12.0-16.0) Hematocrit 36.9 % (37-47) Mean Corpuscular Volume 89.8 fL (80-100) Mean Corpuscular Hemoglobin 31.4 pg (25-34) Mean Corpuscular Hemoglobin Concent 35.0 g/dl (32-36) Platelet Count 231 K/uL (130-400) Mean Platelet Volume 9.2 fL (7.4-10.4) Neutrophils (%) (Auto) 75.5 % Lymphocytes (%) (Auto) 19.3 % Monocytes (%) (Auto) 4.9 % Eosinophils (%) (Auto) 0.0 % Basophils (%) (Auto) 0.0 % Neutrophils # (Auto) 4.92 K/uL (1.4-6.5) Lymphocytes # (Auto) 1.26 K/uL (1.2-3.4) Monocytes # (Auto) 0.32 K/uL (0.11-0.59) Eosinophils # (Auto) 0.00 K/uL (0-0.5) Basophils # (Auto) 0.00 K/uL (0-0.2) RDW Standard Deviation 42.4 fL (36.4-46.3) RDW Coefficient of Variation 13.0 % (11.5-14.5) Immature Granulocyte % (Auto) 0.3 % Immature Granulocyte # (Auto) 0.02 K/uL (0.00-0.02) Prothrombin Time 10.3 SECONDS (9.0-12.0) Prothromb Time International Ratio 1.0 (0.9-1.1) Activated Partial Thromboplast Time 26.1 SECONDS (21.0-31.0) Partial Thromboplastin Ratio 1.0 Laboratory results reviewed by me Medications Administered Medications (Trade) Dose Ordered Sig/Jewels Route Start Time Stop Time Status Last Admin Dose Admin Hydromorphone HCl (Dilaudid Inj) 1 mg ONE PRN IV 01/21/18 16:30 02/04/18 16:29 01/21/18 17:01 1 MG Ondansetron HCl (Zofran Inj) 4 mg NOW STAT IV 01/21/18 16:28 01/21/18 16:30 DC 01/21/18 17:00 4 MG ECG Per My Interpretation Indication: abdominal pain Rate (beats per minute): 85 Rhythm: sinus rhythm Findings: other (CA, QRS, QTC intervals within normal limits. No ST elevation or depression.) ED Course 1530: The patient was evaluated in room C9. A complete history and physical exam was performed. EMR reviewed. Patient was seen in the ED December 15, and had an initial CT which showed post-op changes. The patient came back later that day (December 15) and had a repeat CT which showed increasing fluid collection concerning for bile leak vs abscess. The patient was admitted to the hospital and had HIDA scan (December 16) which showed localized bile leak at the cystic duct. She had ERCP done by GI, and had her stent replaced. Patient was having chest pain at the time which was thought to be due to the bile leak. 180: Vital signs stable. On repeat abdominal exam, patient continues pain on palpation of the epigastric right upper quadrant area. Labs within normal limits. CT of the chest and CT of the abdomen negative. Discussed with GI on- call Dr. farley who stated he believes that the patient should be placed in observation and that he should have a HIDA scan in the morning and be evaluated by him. He states that there is a possibility that the patient's biliary stent has occluded. I discussed the case with Dr. Silva who agreed with this plan. I contacted hospitalist Dr. Mcgee who states he will evaluate patient for admission. Medical Decision 1531: EMR reviewed. Patient was seen in the ED December 15, and had an initial CT which showed post-op changes. The patient came back later that day ( December 15) and had a repeat CT which showed increasing fluid collection concerning for bile leak vs abscess. The patient was admitted to the hospital and had HIDA scan (December 16) which showed localized bile leak at the cystic duct. She had ERCP done by GI, and had her stent replaced. Patient was having chest pain at the time which was thought to be due to the bile leak. 180: Vital signs stable. On repeat abdominal exam, patient continues pain on palpation of the epigastric right upper quadrant area. Labs within normal limits. CT of the chest and CT of the abdomen negative. Discussed with GI on- call Dr. farley who stated he believes that the patient should be placed in observation and that he should have a HIDA scan in the morning and be evaluated by him. He states that there is a possibility that the patient's biliary stent has occluded. I discussed the case with Dr. Silva who agreed with this plan. I contacted hospitalist Dr. Mcgee who states he will evaluate patient for admission. Medication Reconcilliation Current Medication List: was personally reviewed by me Blood Pressure Screening Patient's blood pressure: Normal blood pressure Blood pressure disposition: Did not require urgent referral Consults Time Called: 175 Consulting Physician: Rashaun GI Returned Call: 180 Recommends observation in the hospital for HIDA scan in a.m. and to be evaluated by him. He states there is a possibility that her billiary stent has occluded. Additional Consults: Time Called: 175 Consulted Physician: Shira Gray Surg Returned Call: 180 Additional Comments: Agreed with the plan to place in observation that he will be on consult. Impression Primary Impression: Abdominal pain Scribe Attestation The scribe's documentation has been prepared under my direction and personally reviewed by me in its entirety. I confirm that the note above accurately reflects all work, treatment, procedures, and medical decision making performed by me. The chart was completed utilizing [employer] Speech voice recognition software. Grammatical errors, random word insertions, pronoun errors, and incomplete sentences are an occasional consequence of this system due to software limitations, ambient noise, and hardware issues. Any formal questions or concerns about the content, text, or information contained within the body of this dictation should be directly addressed to the physician for clarification. Departure Information Referrals Dayana Moeller C.R.N.P (PCP) Patient Instructions My [facility] Problem Qualifiers Primary Impression: Abdominal pain Abdominal location: unspecified location Qualified Codes: R10.9 - Unspecified abdominal pain
--- NOTE | 2018-01-21 18:32 | History and Physical ---
History & Physical Date & Time of Service: Jan 21, 2018 at 18:24 Chief Complaint: Abdominal Pain,Throwing Up Primary Care Physician: Dayana Moeller C.R.N.P History of Present Illness Source: patient, hospital records 27 y/o F Hx Type 1 Diabetes, Seizure disorder. Pt had a lap jonathan at [facility] 12/07/17. Developed abdominal pain a week after surgery and was subsequently diagnosed with a bile leak. She required a biliary stent which is scheduled to be removed February 10. She had been in her normal state of health when she developed acute abdominal pain - most pronounced in her upper quadrants, nausea and vomiting beginning this AM. She denies any fevers, diarrhea or constipation. The case was discussed with the GI service and there is some concern for a stent obstruction. She will be admitted for pain control, IVF and antiemetics and a HIDA scan will be scheduled as an initial step. A CT abdomen was obtained and did not reveal any unexpected findings. Past Medical/Surgical History 1) DM I - age 9 2) Cholecystitis 3) Seizure disorder 4) Migraine headaches Surgical Problems 1) 2) Cholecystectomy 12/07/17 - suffered bile leak and required a biliary stent Family History FH: multiple sclerosis Social History Smoking Status: Never Smoker Drug Use: none Marital Status: Occupational Status: employed Allergies Coded Allergies: No Known Allergies (Unverified , 12/15/17) Home Medications Scheduled Insulin Glargine (Lantus), 19 UNITS SC QPM Insulin Lispro (Human) (Humalog), SC AC Lamotrigine (Lamictal), 400 MG PO QAM Lamotrigine (Lamictal), 500 MG PO HS Multivitamins/Minerals (Mvi With Minerals), 1 TAB PO DAILY Nortriptyline Hcl (Pamelor), 75 MG PO HS Polymyxin/Trimethoprim Oph (Polytrim Oph), 2 DROPS OPL Q3HRS Zonisamide (Zonegran), 200 MG PO QPM Zonisamide (Zonegran), 100 MG PO QAM Review of Systems Constitutional: No fever, No chills, No sweats Eyes: No worsening of vision, No eye pain ENT: No hearing loss, No unusual epistaxis, No nasal symptoms Respiratory: No cough, No sputum, No wheezing Cardiovascular: No chest pain, No orthopnea, No PND Abdomen: + pain, + nausea, + vomiting Musculoskeletal: No joint pain, No muscle pain Genitourinary - Female: No dysuria, No urinary frequency, No urinary urgency Neurologic: No memory loss, No paralysis, No weakness Psychiatric: No depression symptoms Endocrine: No fatigue Hematologic / Lymphatic: No abnormal bleeding/bruising Integumentary: No rash Allergic / Immunologic: No environmental allergies Physical Exam Vital Signs Date Time Temp Pulse Resp B/P (MAP) Pulse Ox O2 Delivery O2 Flow Rate FiO2 01/21/18 17:44 88 20 122/77 100 Room Air 01/21/18 17:00 82 18 105/73 99 Room Air 01/21/18 14:26 36.6 94 16 130/73 100 Room Air General Appearance: WD/WN, no apparent distress Head: normocephalic Eyes: normal inspection ENT: normal ENT inspection, pharynx normal Neck: supple, no JVD Respiratory/Chest: chest non-tender, lungs clear, normal breath sounds Cardiovascular: regular rate, rhythm, no edema, no gallop, no JVD Abdomen/GI: normal bowel sounds, + pertinent finding (Diffuse tenderness - most prominent in LUQ) Back: normal inspection, no CVA tenderness, no muscle spasm, normal range of motion Extremities/Musculoskelatal: normal inspection, no calf tenderness Neurologic/Psych: grinder lap II-XII nml as tested, no motor/sensory deficits, alert, oriented x 3 Skin: normal color Diagnostics Laboratory Results Results Past 24 Hours Test 01/21/18 16:25 01/21/18 16:30 01/21/18 16:45 Range/Units Urine Color YELLOW Urine Appearance CLEAR CLEAR Urine pH 7.5 4.5-7.5 Urine Specific [place] 1.009 1.000-1.030 Urine Protein NEG NEG Urine Glucose (UA) NEG NEG Urine Ketones NEG NEG Urine Occult Blood TRACE NEG Urine Nitrite NEG NEG Urine Bilirubin NEG NEG Urine Urobilinogen NEG NEG Urine Leukocyte Esterase TRACE NEG Urine WBC (Auto) 1-5 0-5 /hpf Urine RBC (Auto) 0-4 0-4 /hpf Urine Hyaline Casts (Auto) 0 0-5 /lpf Urine Epithelial Cells (Auto) 10-20 0-5 /lpf Urine Bacteria (Auto) NEG NEG Urine Test NEG NEG Sodium Level 135 136-145 mmol/L Potassium Level 4.1 3.5-5.1 mmol/L Chloride Level 103 98-107 mmol/L Carbon Dioxide Level 26 21-32 mmol/L Anion Gap 6.0 3-11 mmol/L Blood Urea Nitrogen 14 7-18 mg/dl Creatinine 1.02 0.60-1.20 mg/dl Est Creatinine Clear Calc Drug Dose 96.6 ml/min Estimated GFR () 86.7 Estimated GFR (Non- 74.8 BUN/Creatinine Ratio 13.6 10-20 Random Glucose 279 70-99 mg/dl Calcium Level 9.2 8.5-10.1 mg/dl Total Bilirubin 0.5 0.2-1 mg/dl Direct Bilirubin 0.1 0-0.2 mg/dl Aspartate Amino Transf (AST/SGOT) 16 15-37 U/L Alanine Aminotransferase (ALT/SGPT) 26 12-78 U/L Alkaline Phosphatase 93 45-117 U/L Total Protein 8.2 6.4-8.2 gm/dl Albumin 4.2 3.4-5.0 gm/dl Lipase 107 73-393 U/L White Blood Count 6.52 4.8-10.8 K/uL Red Blood Count 4.11 4.2-5.4 M/uL Hemoglobin 12.9 12.0-16.0 g/dL Hematocrit 36.9 37-47 % Mean Corpuscular Volume 89.8 80-100 fL Mean Corpuscular Hemoglobin 31.4 25-34 pg Mean Corpuscular Hemoglobin Concent 35.0 32-36 g/dl Platelet Count 231 130-400 K/uL Mean Platelet Volume 9.2 7.4-10.4 fL Neutrophils (%) (Auto) 75.5 % Lymphocytes (%) (Auto) 19.3 % Monocytes (%) (Auto) 4.9 % Eosinophils (%) (Auto) 0.0 % Basophils (%) (Auto) 0.0 % Neutrophils # (Auto) 4.92 1.4-6.5 K/uL Lymphocytes # (Auto) 1.26 1.2-3.4 K/uL Monocytes # (Auto) 0.32 0.11-0.59 K/uL Eosinophils # (Auto) 0.00 0-0.5 K/uL Basophils # (Auto) 0.00 0-0.2 K/uL RDW Standard Deviation 42.4 36.4-46.3 fL RDW Coefficient of Variation 13.0 11.5-14.5 % Immature Granulocyte % (Auto) 0.3 % Immature Granulocyte # (Auto) 0.02 0.00-0.02 K/uL Prothrombin Time 10.3 9.0-12.0 SECONDS Prothromb Time International Ratio 1.0 0.9-1.1 Activated Partial Thromboplast Time 26.1 21.0-31.0 SECONDS Partial Thromboplastin Ratio 1.[address] abdomen: 1. Interval evolution of postsurgical changes related to cholecystectomy. The previously noted fluid in Morison's pouch is no longer present. Prominence of the bile ducts likely a reservoir effect in the post cholecystectomy state. The common bile duct stent remains in place. 2. No postsurgical complication. No bowel obstruction. 3. Nonobstructing bilateral nephrolithiasis. Impression Assessment and Plan 27 y/o F Hx Type 1 Diabetes, Seizure disorder. Pt had a lap jonathan at [facility] 12/07/17. Developed abdominal pain a week after surgery and was subsequently diagnosed with a bile leak. She required a biliary stent which is scheduled to be removed February 10. She had been in her normal state of health when she developed acute abdominal pain - most pronounced in her upper quadrants, nausea and vomiting beginning this AM. She denies any fevers, diarrhea or constipation. The case was discussed with the GI service and there is some concern for a stent obstruction. She will be admitted for pain control, IVF and antiemetics and a HIDA scan will be scheduled as an initial step. A CT abdomen was obtained and did not reveal any unexpected findings. 1) Acute abdominal pain, N/V - NPO, IVF, antiemetics. Pending HIDA scan and GI evaluation - we will trend LFTs AM as we would expect a degree of derangement with a stent obstruction. 2) DM I - placed on a SS 3) Seizure disorder - cont Zonegran, Lamotrigine Full code - SCDs Total time for this admit including review of labs, meds, imaging, records - discussion with pt and ER attending - 35 min Resuscitation Status VTE Prophylaxis Will order VTE Prophylaxis: Yes
[2018-01-21] MEDS ORDERED: ZOLPIDEM TARTRATE 5 MG TAB PO PRN (18:45)
[2018-01-21] MEDS ORDERED: HYDROmorphone INJ 1 MG/ML SYR IV PRN (18:45)
[2018-01-21] MEDS ORDERED: ONDANSETRON INJ 2 MG/ML 2 ML VIAL IV PRN (18:45)
[2018-01-21 19:51] VITALS: O2SAT 98
[2018-01-21 20:21] VITALS: BP 128/94; PULSE 89; TEMP 36.7; BMI 28.3
[2018-01-21] MEDS ORDERED: MULT-513 PO (21:00)
[2018-01-21] MEDS: SODIUM CHLORIDE 0.9% 1000ML 1,000 ML IV SCH (21:04)
[2018-01-21] MEDS ORDERED: PHARMACY GLYCEMIC MGMT CONSULT PRN (21:15)
[2018-01-21] MEDS ORDERED: NURSING VERBAL MED ORDER ONE (21:15)
[2018-01-21] MEDS ORDERED: IV FLUIDS COMPLETED PRN (21:30)
[2018-01-21] MEDS: NORTRIPTYLINE HCL 25 MG CAP PO SCH (21:31)
[2018-01-21] MEDS ORDERED: INSULIN GLARGINE SOLOSTAR 100 UNITS/ML 3 ML PEN SC STA (21:52)
[2018-01-21] MEDS ORDERED: INSULIN ASPART 100 UNITS/ML 3 ML PEN SC STA (21:56)
[2018-01-21] MEDS ORDERED: DEXTROSE 50% 50 ML SYR IV PRN (22:00)
[2018-01-21] MEDS ORDERED: GLUCAGON FOR INJ 1 MG VIAL SQ PRN (22:00)
[2018-01-21] MEDS ORDERED: GLUCOSE 40% GEL 15 GM TUBE PO PRN (22:00)
[2018-01-21 22:55] VITALS: BP 116/65; PULSE 82; TEMP 36.7; O2SAT 99
[2018-01-21] MEDS: HYDROmorphone INJ 2 MG/ML SYR/VIAL IV PRN (23:42)
[2018-01-22] MEDS ORDERED: ZONISAMIDE 100 MG SCH
[2018-01-22] MEDS: SODIUM CHLORIDE 0.9% 1000ML 1,000 ML IV SCH (03:32)
[2018-01-22] MEDS: GLUCOSE 10 TABS/TUBE PO PRN ×2 (03:50→10:45)
[2018-01-22] MEDS: INSULIN ASPART 100 UNITS/ML 3 ML PEN SC SCH ×5 (06:00→20:31)
[2018-01-22 07:52] LABS: HEMATOCRIT 33.6 % (37-47); HEMOGLOBIN 11.6 g/dL (12.0-16.0); MEAN CELL VOLUME 91.3 fL (80-100); MEAN CORPUSCULAR HEMOGLOBIN 31.5 pg (25-34); MEAN CORPUSCULAR HGB CONC 34.5 g/dl (32-36); MEAN PLATELET VOLUME 9.4 fL (7.4-10.4); PLATELET COUNT 216 K/uL (130-400); RED CELL DISTRIBUTION WIDTH SD 43.3 fL (36.4-46.3); WHITE BLOOD COUNT 4.26 K/uL (4.8-10.8)
[2018-01-22 08:11] VITALS: BP 115/71; PULSE 88; TEMP 36.8; O2SAT 100
[2018-01-22 08:22] LABS: ALBUMIN 3.2 gm/dl (3.4-5.0); ALT/SGPT 22 U/L (12-78); BLOOD UREA NITROGEN 14 mg/dl (7-18); CALCIUM 8.2 mg/dl (8.5-10.1); CARBON DIOXIDE 26 mmol/L (21-32); CREATININE 0.88 mg/dl (0.60-1.20); GLUCOSE 169 mg/dl (70-99); POTASSIUM 3.6 mmol/L (3.5-5.1); SODIUM 139 mmol/L (136-145)
[2018-01-22 08:32] LABS: ALKALINE PHOSPHATASE 70 U/L (45-117); AST/SGOT 15 U/L (15-37); TOTAL PROTEIN 6.4 gm/dl (6.4-8.2)
[2018-01-22] MEDS: TRIMETHOPRIM/POLYMYXIN B OPL SCH (09:00)
[2018-01-22] MEDS: ZONISAMIDE 100 MG CAP PO SCH ×2 (09:42→20:34)
[2018-01-22] MEDS ORDERED: D5W AND NSS 1,000 ML IV SCH (11:00)
[2018-01-22] MEDS ORDERED: NURSING VERBAL MED ORDER ONE ×4 (11:00→15:15)
--- NOTE | 2018-01-22 11:19 | Gastrointestinal Consultation ---
Gastrointestinal Consultation Date of Consultation: Jan 22, 2018 History of Present Illness 27 year old female underwent lap jonathan on 12/07/[address] Barnhart in [place]. A week later she developed severe abdominal pain and was found to have a bile leak. She underwent ERCP with papillotomy and stent placement at [facility] by Dr. Chand on 12/16/17 with almost immediate resolution of pain. Since then, however, she has had intermittent crampy lower abdominal pain after meals, often associated with tenesmus. She has also noted constant right sided back pain (5/10 intensity). She was seen in the office by Dr. Chand a few weeks ago and was placed on colestipol, she said she was doing quite well until yesterday upon work she had acute onset of right upper quadrant abdominal pain, this was similar but not as severe nature as what she had from her her surgical bile leak. 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 There she was found to have normal LFTs, a CT scan did not show any evidence of postsurgical complication and/or post ERCP complication and in fact showed resolution of the fluid that was previously in Morison's pouch. She has had no fevers or chills or diarrhea. Overnight she has had dramatic improvement of her symptoms with essentially no pain after pain medication in the ER. She only has a complaint this morning of a headache and some mild epigastric discomfort. She does have type 1 diabetes, and there was notation of her ERCP being complicated by a large amount of food in her stomach. Surprisingly she had pain onset yesterday without eating but then was worsened with eating. Lipase was also normal in the emergency room. Past Medical/Surgical History Medical Problems: (1) Abdominal pain Status: Acute (2) Constipation Status: Acute (3) Diffuse abdominal pain Status: Acute (4) Encounter for recheck of abscess following incision and drainage Status: Acute (5) Pilonidal abscess Status: Acute (6) Right upper quadrant abdominal pain Status: Acute Social History Problems: (1) S/P cholecystectomy Status: Acute Family History FH: multiple sclerosis Social History Smoking Status: Never Smoker Drug Use: none Marital Status: Housing Status: lives with significant other Occupation Status: employed Allergies Coded Allergies: No Known Allergies (Unverified , 12/15/17) Current Medications Home Meds and Scripts Medications Dose Route/Sig Max Daily Dose Days Date Category Dose Instructions Polytrim Oph (Polymyxin/Trimethoprim Sulfate) Soln 2 Drops OPL Q3HRS 01/21/18 Reported Mvi With Minerals (Multivitamins/Minerals) Tab 1 Tab PO DAILY 12/15/17 Reported Pamelor (Nortriptyline HCl) 75 Mg Cap 75 Mg PO HS 12/15/17 Reported Zonegran (Zonisamide) 100 Mg Cap 100 Mg PO QAM 12/15/17 Reported Zonegran (Zonisamide) 100 Mg Cap 200 Mg PO QPM 07/20/17 Reported Lamictal (Lamotrigine) 100 Mg Tab 500 Mg PO HS 07/20/17 Reported Lamictal (Lamotrigine) 200 Mg Tab 400 Mg PO QAM 07/20/17 Reported Humalog (Insulin Lispro (Human)) 100 Unit/Ml Inj SC AC 07/20/17 Reported SLIDING SCALE, PER PT uses insulin to CHO ratio of 1 unit for every 10g CHO consumed Lantus (Insulin Glargine) 100 Unit/Ml Inj 19 Units SC QPM 07/20/17 Reported Review of Systems Constitutional: No see HPI, No fever, No chills, No sweats, No weight loss, No weakness, No fatigue, No problem reported Eyes: No see HPI, No worsening of vision, No eye pain, No redness, No discharge , No diplopia, No problem reported ENT: No see HPI, No hearing loss, No unusual epistaxis, No nasal symptoms, No sore throat, No tinnitus, No dental problems, No trouble swallowing, No pain on swallowing, No problem reported Respiratory: No see HPI, No cough, No sputum, No wheezing, No shortness of breath, No dyspnea on exertion, No dyspnea at rest, No hemoptysis, No problem reported Cardiac: No see HPI, No chest pain, No orthopnea, No PND, No edema, No claudication, No palpitations, No problem reported Abdomen: No see HPI, No pain, No nausea, No vomiting, No diarrhea, No constipation, No GI bleeding, No dysphagia, No odynophagia, No acolic stools, No jaundice, No dark urine, No problem reported Musculoskeletal: No see HPI, No joint pain, No muscle pain, No swelling, No calf pain, No problem reported Female : No see HPI, No dysuria, No urinary frequency, No hematuria, No incontinence, No abnormal vaginal bleeding, No vaginal discharge, No problem reported Neuro: No see HPI, No memory loss, No paralysis, No weakness, No numbness/ tingling, No vertigo, No balance problems, No problem reported Psych: No see HPI, No depression symptoms, No anhedonism, No anxiety, No insomnia, No substance abuse, No problem reported Physical Exam Date Time Temp Pulse Resp B/P (MAP) Pulse Ox O2 Delivery O2 Flow Rate FiO2 01/22/18 08:11 36.8 88 17 115/71 (86) 100 Room Air 01/21/18 23:30 Room Air 01/21/18 22:55 36.7 82 14 116/65 (82) 99 Room Air 01/21/18 20:21 36.7 89 14 128/94 Room Air 01/21/18 19:51 86 18 132/72 98 Room Air 01/21/18 19:03 88 18 125/76 100 Room Air 01/21/18 17:44 88 20 122/77 100 Room Air 01/21/18 17:00 82 18 105/73 99 Room Air 01/21/18 14:26 36.6 94 16 130/73 100 Room Air General Appearance: WD/WN Eyes: normal inspection ENT: normal ENT inspection, hearing grossly normal, TMs normal Neck: supple, no adenopathy Respiratory/Chest: chest non-tender, lungs clear, normal breath sounds Cardiovascular: regular rate, rhythm, no edema, no gallop Abdomen: normal bowel sounds, non tender, soft Extremities: normal range of motion, non-tender, normal inspection 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, no motor/sensory deficits, alert Laboratory Results Last 24 Hours Test 01/21/18 16:25 01/21/18 16:30 01/21/18 16:45 01/21/18 20:57 Urine Color YELLOW Urine Appearance CLEAR Urine pH 7.5 Urine Specific [place] 1.009 Urine Protein NEG Urine Glucose (UA) NEG Urine Ketones NEG Urine Occult Blood TRACE Urine Nitrite NEG Urine Bilirubin NEG Urine Urobilinogen NEG Urine Leukocyte Esterase TRACE Urine WBC (Auto) 1-5 /hpf Urine RBC (Auto) 0-4 /hpf Urine Hyaline Casts (Auto) 0 /lpf Urine Epithelial Cells (Auto) 10-20 /lpf Urine Bacteria (Auto) NEG Urine Test NEG Sodium Level 135 mmol/L Potassium Level 4.1 mmol/L Chloride Level 103 mmol/L Carbon Dioxide Level 26 mmol/L Anion Gap 6.0 mmol/L Blood Urea Nitrogen 14 mg/dl Creatinine 1.02 mg/dl Est Creatinine Clear Calc Drug Dose 96.6 ml/min Estimated GFR () 86.7 Estimated GFR (Non- 74.8 BUN/Creatinine Ratio 13.6 Random Glucose 279 mg/dl Calcium Level 9.2 mg/dl Total Bilirubin 0.5 mg/dl Direct Bilirubin 0.1 mg/dl Aspartate Amino Transf (AST/SGOT) 16 U/L Alanine Aminotransferase (ALT/SGPT) 26 U/L Alkaline Phosphatase 93 U/L Total Protein 8.2 gm/dl Albumin 4.2 gm/dl Lipase 107 U/L White Blood Count 6.52 K/uL Red Blood Count 4.11 M/uL Hemoglobin 12.9 g/dL Hematocrit 36.9 % Mean Corpuscular Volume 89.8 fL Mean Corpuscular Hemoglobin 31.4 pg Mean Corpuscular Hemoglobin Concent 35.0 g/dl Platelet Count 231 K/uL Mean Platelet Volume 9.2 fL Neutrophils (%) (Auto) 75.5 % Lymphocytes (%) (Auto) 19.3 % Monocytes (%) (Auto) 4.9 % Eosinophils (%) (Auto) 0.0 % Basophils (%) (Auto) 0.0 % Neutrophils # (Auto) 4.92 K/uL Lymphocytes # (Auto) 1.26 K/uL Monocytes # (Auto) 0.32 K/uL Eosinophils # (Auto) 0.00 K/uL Basophils # (Auto) 0.00 K/uL RDW Standard Deviation 42.4 fL RDW Coefficient of Variation 13.0 % Immature Granulocyte % (Auto) 0.3 % Immature Granulocyte # (Auto) 0.02 K/uL Prothrombin Time 10.3 SECONDS Prothromb Time International Ratio 1.0 Activated Partial Thromboplast Time 26.1 SECONDS Partial Thromboplastin Ratio 1.0 Bedside Glucose 251 mg/dl Test 01/21/18 22:22 01/21/18 23:58 01/22/18 03:44 01/22/18 04:12 Bedside Glucose 246 mg/dl 195 mg/dl 49 mg/dl 52 mg/dl Test 01/22/18 04:39 01/22/18 06:02 01/22/18 07:02 Bedside Glucose 172 mg/dl 235 mg/dl White Blood Count 4.26 K/uL Red Blood Count 3.68 M/uL Hemoglobin 11.6 g/dL Hematocrit 33.6 % Mean Corpuscular Volume 91.3 fL Mean Corpuscular Hemoglobin 31.5 pg Mean Corpuscular Hemoglobin Concent 34.5 g/dl RDW Standard Deviation 43.3 fL RDW Coefficient of Variation 13.0 % Platelet Count 216 K/uL Mean Platelet Volume 9.4 fL Sodium Level 139 mmol/L Potassium Level 3.6 mmol/L Chloride Level 107 mmol/L Carbon Dioxide Level 26 mmol/L Anion Gap 6.0 mmol/L Blood Urea Nitrogen 14 mg/dl Creatinine 0.88 mg/dl Est Creatinine Clear Calc Drug Dose 112.0 ml/min Estimated GFR () 103.6 Estimated GFR (Non- 89.4 BUN/Creatinine Ratio 16.1 Random Glucose 169 mg/dl Calcium Level 8.2 mg/dl Magnesium Level 1.8 mg/dl Total Bilirubin 0.4 mg/dl Direct Bilirubin < 0.1 mg/dl Aspartate Amino Transf (AST/SGOT) 15 U/L Alanine Aminotransferase (ALT/SGPT) 22 U/L Alkaline Phosphatase 70 U/L Total Protein 6.4 gm/dl Albumin 3.2 gm/dl Impression Patient is a 27 year old female with recent cholecystectomy, gated by bile leak and status post ERCP last month who presents with acute onset of epigastric and right upper quadrant abdominal pain. Unsure if this is issues relating to her recent surgery and ERCP. I did ask her if this was the same pain that prompted her cholecystectomy, said this pain is in a similar location but less severe and the cholecystectomy did improve her symptoms. At this time and does not appear that she has an occluded stent or biloma. This may be peptic ulcer disease, gastroenteritis, or more likely potentially gastroparesis as a flare. Continue to treat her symptoms symptomatically with antiemetics and pain medication as needed. Follow her LFTs if she fails to improve then consider HIDA scan. For now we will start her on clear liquid diet and follow her symptomatology. She has an upcoming repeat ERCP on February 09, however if symptoms persist and are prohibitory from her being well enough to leave the hospital than would do that prior to discharge.
[2018-01-22] MEDS: D5W AND 1/2NSS 1,000 ML IV SCH ×2 (11:20→20:44)
--- NOTE | 2018-01-22 11:43 | Pharmacy Progress Note ---
Glycemic Control Intl Consult Date of Service Jan 22, 2018. Scope Glycemic Pharmacist consulted by Dr Mayo on 01/22/18 for glycemic control and to write orders per [facility] inpatient glycemic control protocol Objective Weight (Kilograms): 87.000 Accuchecks BSG (last 24hrs): Test 01/21/18 16:30 01/21/18 20:57 01/21/18 22:22 01/21/18 23:58 Random Glucose 279 mg/dl (70-99) Bedside Glucose 251 mg/dl (70-90) 246 mg/dl (70-90) 195 mg/dl (70-90) Test 01/22/18 03:44 01/22/18 04:12 01/22/18 04:39 01/22/18 06:02 Bedside Glucose 49 mg/dl (70-90) 52 mg/dl (70-90) 172 mg/dl (70-90) 235 mg/dl (70-90) Test 01/22/18 07:02 Random Glucose 169 mg/dl (70-99) Laboratory Data (last 24hrs) Test 01/21/18 16:30 01/21/18 16:45 01/22/18 07:02 Anion Gap 6.0 mmol/L 6.0 mmol/L BUN/Creatinine Ratio 13.6 16.1 Blood Urea Nitrogen 14 mg/dl 14 mg/dl Creatinine 1.02 mg/dl 0.88 mg/dl Potassium Level 4.1 mmol/L 3.6 mmol/L Sodium Level 135 mmol/L 139 mmol/L White Blood Count 6.52 K/uL 4.26 K/uL Red Blood Count 4.11 M/uL Hemoglobin 12.9 g/dL Hematocrit 36.9 % Mean Corpuscular Volume 89.8 fL Mean Corpuscular Hemoglobin 31.4 pg Mean Corpuscular Hemoglobin Concent 35.0 g/dl Platelet Count 231 K/uL Mean Platelet Volume 9.2 fL Neutrophils (%) (Auto) 75.5 % Lymphocytes (%) (Auto) 19.3 % Monocytes (%) (Auto) 4.9 % Eosinophils (%) (Auto) 0.0 % Basophils (%) (Auto) 0.0 % Neutrophils # (Auto) 4.92 K/uL Lymphocytes # (Auto) 1.26 K/uL Monocytes # (Auto) 0.32 K/uL Eosinophils # (Auto) 0.00 K/uL Basophils # (Auto) 0.00 K/uL Recent Pertinent Medications Outpatient Anti-diabetic Regimen: * Lantus 19 units plus Humalog sliding scale (carbohydrate ratio of 10) * A1c = 7.6 % 12/17/17 The patient is currently receiving: * Basal insulin: Lantus 19 units every 24 hours in the evening * Correctional Insulin: Novolog Correction per scale ACHS Goal Range: Low 110 mg/dL - High 150 mg/dL Correction Factor: 35 mg/dL/unit * Prandial insulin: Per carb ratio of 1 unit per 15 grams CHO consumed Risk Factors for Insulin Resistance: * IVF: D51/2 NS @ 100 mLs/hr * Diet: NPO changed to clear liquid for lunch Assessment & Plan ASSESSMENT: * Ms Esteves is a 27 y/o F with a PMH of seizures, migraines, and type 1 diabetes with poor control. The patient had a lap jonathan on 12/07/17 and then had complications in early December requiring a stent placement on 12/16/17. She is currently admitted with worsening abdominal pain. The patient was originally NPO ; GI has ordered a clear liquid diet. The patient's blood sugar on admission was in the high 200s. She received her home dose of Lantus and was hypoglycemic at 0400 with a blood sugar of 49 mg/dL. With treatment this increased to 169 mg/ dL. With NPO status, dextrose was started. Monitor how patient tolerates diet. * With Lantus, order a scale that depends upon how patient tolerates diet. Even if she tolerates diet, reduce Lantus dose as the 0400 hypoglycemia event was unexpected even knowing about NPO status. Utilize looser parameters than from previous hospitalization for Novolog doses. Increase goal range for now since unknown how patient will tolerate diet. PLAN FOR INPATIENT GLYCEMIC CONTROL: * Basal insulin with LANTUS 10 units SQ if NPO or not tolerating diet; 15 units if tolerating diet * Correctional Insulin with NOVOLOG per scale ACHS or Q6hrs while NPO * Goal Range: Low 140 mg/dL - High 180 mg/dL * Correction Factor: 45 mg/dL/unit * Nutritional / Prandial insulin per carb ratio of 1 unit per 15 grams CHO consumed RECOMMENDATIONS FOR OUTPATIENT REGIMEN * Patient's HbA1C is uncontrolled for her age and co-morbidities. Work with physician to titrate insulin to goal blood sugars. Thank you.
[2018-01-22] MEDS ORDERED: ACETAMINOPHEN 325 MG TAB PO STA (12:14)
--- NOTE | 2018-01-22 12:20 | Family Medicine Progress Note ---
Progress Note Date of Service Jan 22, 2018. Subjective Pt evaluation today including: conversation w/ patient, physical exam, chart review, lab review Pain: improved PO Intake: advanced to clear liquids Voiding: no voiding problems abdominal pain is better, denies any new episodes of nausea, vomiting , fevers/ chills. Constitutional: No fever, No chills ENT: No hearing loss Respiratory: No cough, No sputum Abdomen: + pain, No nausea, No vomiting, No diarrhea Musculoskeletal: No joint pain Female : No dysuria, No urinary frequency Neurologic: No memory loss Psychiatric: No depression symptoms Heme: No abnormal bleeding/bruising Medications Current Inpatient Medications Medications (Trade) Dose Ordered Sig/Jewels Route Start Time Stop Time Status Last Admin Dose Admin Ioversol (Optiray 320) 100 ml UD PRN IV 01/21/18 15:45 01/25/18 15:44 Lamotrigine (Lamictal Tab) 500 mg HS PO 01/21/18 21:00 02/20/18 20:59 01/21/18 21:31 500 MG Lamotrigine (Lamictal Tab) 400 mg QAM PO 01/22/18 09:00 02/21/18 08:59 01/22/18 09:42 400 MG Nortriptyline HCl (Pamelor Cap) 75 mg HS PO 01/21/18 21:00 02/20/18 20:59 01/21/18 21:31 75 MG Polymyxin/ Trimethoprim Sulfate (Polytrim Oph Soln) 2 drops DAILY OPL 01/22/18 09:00 02/21/18 08:59 01/22/18 09:00 2 DROPS Zolpidem Tartrate (Ambien Tab) 5 mg HSZ PRN PO 01/21/18 18:45 02/20/18 18:44 Ondansetron HCl (Zofran Inj) 4 mg Q6H PRN IV 01/21/18 18:45 02/20/18 18:44 Miscellaneous Information (Consult Glycemic Management Pharmacy) 1 ea DAILY PRN N/A 01/21/18 21:15 02/20/18 21:14 Miscellaneous (Iv Fluids Completed) 1 ea PRN PRN N/A 01/21/18 21:30 01/21/19 21:29 Glucose (Glucose 40% Gel) 15-30 GRAMS 15 GRAMS... UD PRN PO 01/21/18 22:00 02/20/18 21:59 Glucose (Glucose Chew Tab) 4-8 Tablets 4 Tabl... UD PRN PO 01/21/18 22:00 02/20/18 21:59 01/22/18 03:50 8 TABS Dextrose (Dextrose 50% 50ML Syringe) 25-50ML OF 50% DW IV FOR... UD PRN IV 01/21/18 22:00 02/20/18 21:59 01/22/18 04:23 50 ML Glucagon (Glucagon Inj) 1 mg UD PRN SQ 01/21/18 22:00 02/20/18 21:59 Hydromorphone HCl (Dilaudid Inj) 1 mg Q3H PRN IV 01/21/18 23:45 02/04/18 23:44 01/21/18 23:42 1 MG Insulin Aspart (novoLOG ASPART) SLIDING SCALE Q6 SC 01/22/18 00:00 02/21/18 00:00 Zonisamide (Zonegran) 200 mg PM PO 01/22/18 21:00 02/21/18 20:59 Zonisamide (Zonegran) 100 mg QAM PO 01/22/18 09:00 02/21/18 08:59 01/22/18 09:42 100 MG Dextrose/Sodium Chloride 1,000 ml @ 100 mls/hr Q10H IV 01/22/18 11:15 02/21/18 11:14 01/22/18 11:20 100 MLS/HR Insulin Glargine (Lantus Solostar Pen) SEE PROTOCOL TEXT HS SC 01/22/18 21:00 02/21/18 20:59 Objective Vital Signs Date Time Temp Pulse Resp B/P (MAP) Pulse Ox O2 Delivery O2 Flow Rate FiO2 01/22/18 08:11 36.8 88 17 115/71 (86) 100 Room Air 01/21/18 23:30 Room Air 01/21/18 22:55 36.7 82 14 116/65 (82) 99 Room Air 01/21/18 20:21 36.7 89 14 128/94 Room Air 01/21/18 19:51 86 18 132/72 98 Room Air 01/21/18 19:03 88 18 125/76 100 Room Air 01/21/18 17:44 88 20 122/77 100 Room Air 01/21/18 17:00 82 18 105/73 99 Room Air 01/21/18 14:26 36.6 94 16 130/73 100 Room Air Physical Exam General Appearance: WD/WN, no apparent distress ENT: hearing grossly normal Neck: supple Respiratory/Chest: lungs clear, normal breath sounds, no respiratory distress Cardiovascular: regular rate, rhythm Abdomen: normal bowel sounds, soft, + tenderness (diffuse but especially in RUQ and epigastric area) Extremities: no pedal edema Neurologic/Psychiatric: alert, normal mood/affect, oriented x 3 Laboratory Results 01/22/18 07:02 01/22/18 07:02 Test 01/21/18 16:25 01/21/18 16:30 01/21/18 16:45 01/22/18 06:02 Urine Color YELLOW Urine Appearance CLEAR (CLEAR) Urine pH 7.5 (4.5-7.5) Urine Specific [place] 1.009 (1.000-1.030) Urine Protein NEG (NEG) Urine Glucose (UA) NEG (NEG) Urine Ketones NEG (NEG) Urine Occult Blood TRACE (NEG) Urine Nitrite NEG (NEG) Urine Bilirubin NEG (NEG) Urine Urobilinogen NEG (NEG) Urine Leukocyte Esterase TRACE (NEG) Urine WBC (Auto) 1-5 /hpf (0-5) Urine RBC (Auto) 0-4 /hpf (0-4) Urine Hyaline Casts (Auto) 0 /lpf (0-5) Urine Epithelial Cells (Auto) 10-20 /lpf (0-5) Urine Bacteria (Auto) NEG (NEG) Urine Test NEG (NEG) Lipase 107 U/L (73-393) Immature Granulocyte % (Auto) 0.3 % White Blood Count 6.52 K/uL (4.8-10.8) Red Blood Count 4.11 M/uL (4.2-5.4) Hemoglobin 12.9 g/dL (12.0-16.0) Hematocrit 36.9 % (37-47) Mean Corpuscular Volume 89.8 fL (80-100) Mean Corpuscular Hemoglobin 31.4 pg (25-34) Mean Corpuscular Hemoglobin Concent 35.0 g/dl (32-36) Platelet Count 231 K/uL (130-400) Mean Platelet Volume 9.2 fL (7.4-10.4) Neutrophils (%) (Auto) 75.5 % Lymphocytes (%) (Auto) 19.3 % Monocytes (%) (Auto) 4.9 % Eosinophils (%) (Auto) 0.0 % Basophils (%) (Auto) 0.0 % Neutrophils # (Auto) 4.92 K/uL (1.4-6.5) Lymphocytes # (Auto) 1.26 K/uL (1.2-3.4) Monocytes # (Auto) 0.32 K/uL (0.11-0.59) Eosinophils # (Auto) 0.00 K/uL (0-0.5) Basophils # (Auto) 0.00 K/uL (0-0.2) Immature Granulocyte # (Auto) 0.02 K/uL (0.00-0.02) Prothrombin Time 10.3 SECONDS (9.0-12.0) Prothromb Time International Ratio 1.0 (0.9-1.1) Activated Partial Thromboplast Time 26.1 SECONDS (21.0-31.0) Partial Thromboplastin Ratio 1.0 Bedside Glucose 235 mg/dl (70-90) Test 01/22/18 07:02 Red Blood Count 3.68 M/uL (4.2-5.4) Mean Corpuscular Volume 91.3 fL (80-100) Mean Corpuscular Hemoglobin 31.5 pg (25-34) Mean Corpuscular Hemoglobin Concent 34.5 g/dl (32-36) RDW Standard Deviation 43.3 fL (36.4-46.3) RDW Coefficient of Variation 13.0 % (11.5-14.5) Mean Platelet Volume 9.4 fL (7.4-10.4) Anion Gap 6.0 mmol/L (3-11) Est Creatinine Clear Calc Drug Dose 112.0 ml/min Estimated GFR () 103.6 Estimated GFR (Non- 89.4 BUN/Creatinine Ratio 16.1 (10-20) Calcium Level 8.2 mg/dl (8.5-10.1) Magnesium Level 1.8 mg/dl (1.8-2.4) Total Bilirubin 0.4 mg/dl (0.2-1) Direct Bilirubin < 0.1 mg/dl (0-0.2) Aspartate Amino Transf (AST/SGOT) 15 U/L (15-37) Alanine Aminotransferase (ALT/SGPT) 22 U/L (12-78) Alkaline Phosphatase 70 U/L (45-117) Total Protein 6.4 gm/dl (6.4-8.2) Albumin 3.2 gm/dl (3.4-5.0) Assessment and Plan 27 y/o F with PMH of type 1 DM , Seizure s/p lap cholecystectomy on 11/27 with biliary stent placed after a bile leak and scheduled to be removed 02/10 was admitted with abdominal pain, nausea and vomiting. Acute abdominal pain s/p lap jonathan and biliary stent: - CT abd/pelvis reveals no occlusion of stent or post surgical complications or bowel obstruction - GI consult appreciated - Trend LFTs, will order HIDA if not improving symptomatically - Diet advanced to clear liquids - Zofran and pain meds DMT1: - Had a few episodes of hypoglycemia, insulin dosing adjusted per pharmacy - Diet restarted with clear liquids - Monitor blood sugars - Hgb a1c from 12/17 was 7.6, will need tighter control Seizure disorder - cont Zonegran, Lamotrigine Full code DVT prophylaxis: SCDs Resident Physician Supervision Note: I interviewed and examined the patient. Discussed with Dr. Valiente and agree with findings and plan as documented in the note. Any exceptions or clarifications are listed here: None Documented By: Vijay Guy feeling ok tolerating clears reasonably well vitals noted nad breathing unlabored no pallor or icterus abdominal pain - as above and management per GI DM1 - insulin management - should get easier to balance now that she's not strict NPO otherwise as above Resident Tracking Resident Involvement: Resident Care Provided Care Provided: Adult Hospital Medicine
[2018-01-22 15:40] VITALS: BP 113/75; PULSE 86; TEMP 36.8; O2SAT 99
[2018-01-22] MEDS: HYDROmorphone INJ 2 MG/ML SYR/VIAL IV PRN ×3 (16:37→23:28)
[2018-01-22] MEDS: NORTRIPTYLINE HCL 25 MG CAP PO SCH (20:34)
[2018-01-22] MEDS: INSULIN GLARGINE SOLOSTAR 100 UNITS/ML 3 ML PEN SC SCH (20:39)
[2018-01-22 23:13] VITALS: BP 110/69; PULSE 86; TEMP 36.7; O2SAT 100
[2018-01-23] MEDS: D5W AND 1/2NSS 1,000 ML IV SCH (05:50)
[2018-01-23 07:35] VITALS: BP 131/77; PULSE 81; TEMP 36.8; O2SAT 98
[2018-01-23 07:42] LABS: ALBUMIN 3.4 gm/dl (3.4-5.0); CALCIUM 8.1 mg/dl (8.5-10.1); CREATININE 0.91 mg/dl (0.60-1.20); POTASSIUM 3.4 mmol/L (3.5-5.1)
[2018-01-23 07:46] LABS: TOTAL PROTEIN 6.9 gm/dl (6.4-8.2)
[2018-01-23] MEDS: ZONISAMIDE 100 MG CAP PO SCH ×2 (08:40→21:57)
[2018-01-23] MEDS: INSULIN ASPART 100 UNITS/ML 3 ML PEN SC SCH ×5 (08:50→22:04)
[2018-01-23] MEDS: TRIMETHOPRIM/POLYMYXIN B OPL SCH (09:00)
--- NOTE | 2018-01-23 11:45 | Gastroenterology Progress Note ---
Progress Note Date of Service: Jan 23, 2018 Subjective Pt evaluation today including: conversation w/ patient, physical exam Patient has improved and actually has less pain than when she was seen in the clinic several weeks ago still complains of a headache. Mild nausea. Medications Current Inpatient Medications Medications (Trade) Dose Ordered Sig/Jewels Route Start Time Stop Time Status Last Admin Dose Admin Ioversol (Optiray 320) 100 ml UD PRN IV 01/21/18 15:45 01/25/18 15:44 Lamotrigine (Lamictal Tab) 500 mg HS PO 01/21/18 21:00 02/20/18 20:59 01/22/18 20:34 500 MG Lamotrigine (Lamictal Tab) 400 mg QAM PO 01/22/18 09:00 02/21/18 08:59 01/23/18 08:41 400 MG Nortriptyline HCl (Pamelor Cap) 75 mg HS PO 01/21/18 21:00 02/20/18 20:59 01/22/18 20:34 75 MG Polymyxin/ Trimethoprim Sulfate (Polytrim Oph Soln) 2 drops DAILY OPL 01/22/18 09:00 02/21/18 08:59 01/22/18 09:00 2 DROPS Zolpidem Tartrate (Ambien Tab) 5 mg HSZ PRN PO 01/21/18 18:45 02/20/18 18:44 Ondansetron HCl (Zofran Inj) 4 mg Q6H PRN IV 01/21/18 18:45 02/20/18 18:44 01/22/18 20:41 4 MG Miscellaneous Information (Consult Glycemic Management Pharmacy) 1 ea DAILY PRN N/A 01/21/18 21:15 02/20/18 21:14 Miscellaneous (Iv Fluids Completed) 1 ea PRN PRN N/A 01/21/18 21:30 01/21/19 21:29 Glucose (Glucose 40% Gel) 15-30 GRAMS 15 GRAMS... UD PRN PO 01/21/18 22:00 02/20/18 21:59 Glucose (Glucose Chew Tab) 4-8 Tablets 4 Tabl... UD PRN PO 01/21/18 22:00 02/20/18 21:59 01/22/18 03:50 8 TABS Dextrose (Dextrose 50% 50ML Syringe) 25-50ML OF 50% DW IV FOR... UD PRN IV 01/21/18 22:00 02/20/18 21:59 01/22/18 04:23 50 ML Glucagon (Glucagon Inj) 1 mg UD PRN SQ 01/21/18 22:00 02/20/18 21:59 Hydromorphone HCl (Dilaudid Inj) 1 mg Q3H PRN IV 01/21/18 23:45 02/04/18 23:44 01/22/18 23:28 1 MG Zonisamide (Zonegran) 200 mg PM PO 01/22/18 21:00 02/21/18 20:59 01/22/18 20:34 200 MG Zonisamide (Zonegran) 100 mg QAM PO 01/22/18 09:00 02/21/18 08:59 01/23/18 08:40 100 MG Dextrose/Sodium Chloride 1,000 ml @ 100 mls/hr Q10H IV 01/22/18 11:15 02/21/18 11:14 01/23/18 05:50 100 MLS/HR Insulin Glargine (Lantus Solostar Pen) SEE PROTOCOL TEXT HS SC 01/22/18 21:00 02/21/18 20:59 01/22/18 20:39 15 UNITS Insulin Aspart (novoLOG ASPART) SLIDING SCALE ACHS SC 01/22/18 17:15 02/21/18 00:00 01/23/18 08:50 1 UNITS Objective Vital Signs Date Time Temp Pulse Resp B/P (MAP) Pulse Ox O2 Delivery O2 Flow Rate FiO2 01/23/18 07:35 36.8 81 16 131/77 (95) 98 Room Air 01/22/18 23:25 Room Air 01/22/18 23:13 36.7 86 18 110/69 (83) 100 Room Air 01/22/18 15:40 36.8 86 20 113/75 (88) 99 Room Air 01/22/18 15:23 Room Air Physical Exam General Appearance: WD/WN, no apparent distress Eyes: normal inspection Neck: supple, no adenopathy Respiratory/Chest: chest non-tender, lungs clear Cardiovascular: regular rate, rhythm, no edema Abdomen: normal bowel sounds, non tender Extremities: normal range of motion, non-tender, normal inspection 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 Laboratory Results Last 24 Hours Test 01/22/18 12:01 01/22/18 13:22 01/22/18 16:41 01/22/18 17:16 Bedside Glucose 173 mg/dl 173 mg/dl 75 mg/dl 80 mg/dl Test 01/22/18 19:56 01/22/18 23:34 01/23/18 06:45 01/23/18 08:28 Bedside Glucose 165 mg/dl 113 mg/dl 74 mg/dl Sodium Level 139 mmol/L Potassium Level 3.4 mmol/L Chloride Level 110 mmol/L Carbon Dioxide Level 25 mmol/L Anion Gap 4.0 mmol/L Blood Urea Nitrogen 8 mg/dl Creatinine 0.91 mg/dl Est Creatinine Clear Calc Drug Dose 108.3 ml/min Estimated GFR () 99.5 Estimated GFR (Non- 85.9 BUN/Creatinine Ratio 8.8 Random Glucose 89 mg/dl Calcium Level 8.1 mg/dl Total Bilirubin 0.4 mg/dl Direct Bilirubin 0.1 mg/dl Aspartate Amino Transf (AST/SGOT) 15 U/L Alanine Aminotransferase (ALT/SGPT) 24 U/L Alkaline Phosphatase 71 U/L Total Protein 6.9 gm/dl Albumin 3.4 gm/dl Assessment and Plan Patient is a 27 year old female with recent cholecystectomy, gated by bile leak and status post ERCP last month who presents with acute onset of epigastric and right upper quadrant abdominal pain. Unsure if this is issues relating to her recent surgery and ERCP. I did ask her if this was the same pain that prompted her cholecystectomy, said this pain is in a similar location but less severe and the cholecystectomy did improve her symptoms. At this time and does not appear that she has an occluded stent or biloma. This may be peptic ulcer disease, gastroenteritis, or more likely potentially gastroparesis as a flare. Continue to treat her symptoms symptomatically with antiemetics and pain medication as needed. Follow her LFTs if she fails to improve then consider HIDA scan but it is likely of little utility. Advance diet as tolerated, if she is intolerant to solid foods or has continued pain please make n.p.o. after midnight and consult Judy Hollis and Dr. Woo in the morning for potential EGD to rule out peptic ulcer disease otherwise, likely can be discharged She has an upcoming repeat ERCP on February 09, however if symptoms persist and are prohibitory from her being well enough to leave the hospital than would do that prior to discharge.
[2018-01-23] MEDS ORDERED: ACETAMINOPHEN 325 MG TAB PO ONE (13:15)
[2018-01-23] MEDS ORDERED: NURSING VERBAL MED ORDER ONE (13:15)
--- NOTE | 2018-01-23 13:29 | Pharmacy Progress Note ---
Pharmacy Glycemic Short Note 2 Date of Service Jan 23, 2018. OUTPATIENT ANTIDIABETIC REGIMEN: * Lantus 19 units qPM plus Humalog CR of 10 ASSESSMENT: * Ms Esteves is a 27 y/o F with a PMH of seizures, migraines, and type 1 diabetes with poor control. The patient had a lap jonathan on 12/07/17 and then had complications in early December requiring a stent placement on 12/16/17. She is currently admitted with worsening abdominal pain. The patient was originally NPO but now has a clear liquid diet. Yesterday's blood sugars were [phone]. Fasting today is 89 and lunch 160 mg/dL. The patient received 21 units of insulin yesterday (15 units of basal included) . She had several hypoglycemic episodes which may be related to her home dose of Lantus given while NPO. * Fasting blood sugar is still below goal range. This may be due to the extra Lantus given the other day. Created a scale for this evening with lower dose of Lantus available. Okay with giving 15 units of Lantus if blood sugar over 180 mg /dL because this indicates that patient's blood sugars have rebounded significantly. Blood sugars are trending upwards. Tighten carbohydrate ratio slightly but this is still looser than home carbohydrate regimen. Lower goal range slightly so that blood sugars may be around 180 mg/dL. PLAN FOR INPATIENT GLYCEMIC CONTROL: * Basal insulin * Lantus 12-15 units SQ HS (give 15 units if blood sugar over 180 mg/dL) * Bolus insulin * NovoLog per scale ACHS or Q6hrs while NPO * Goal Range: Low 120 mg/dL - High 160 mg/dL * Correction Factor: 45 mg/dL/unit * Nutritional / Prandial insulin per carb ratio of 1 unit per 12 grams CHO consumed PLAN FOR DISCHARGE: * Patient's HbA1C is uncontrolled for her age and co-morbidities. Work with physician to titrate insulin to goal blood sugars.
--- NOTE | 2018-01-23 13:32 | Family Medicine Progress Note ---
Progress Note Date of Service Jan 23, 2018. Subjective Pt evaluation today including: conversation w/ patient, physical exam, chart review, lab review Pain: denies any pain PO Intake: clear Voiding: no voiding problems abdominal pain is better but c/o nausea. no episodes of vomiting. No fevers/ chills. complains of headache , mayo s ah/o migraine and is on prophylactic medications Constitutional: No fever, No chills Eyes: No worsening of vision ENT: No hearing loss Respiratory: No cough, No sputum, No wheezing, No shortness of breath Cardiovascular: No chest pain Breast: No breast lump Abdomen: + pain (improved), + nausea, No vomiting, No diarrhea Musculoskeletal: No joint pain Female : No dysuria, No urinary frequency Neurologic: + problem reported (headache) Medications Current Inpatient Medications Medications (Trade) Dose Ordered Sig/Jewels Route Start Time Stop Time Status Last Admin Dose Admin Ioversol (Optiray 320) 100 ml UD PRN IV 01/21/18 15:45 01/25/18 15:44 Lamotrigine (Lamictal Tab) 500 mg HS PO 01/21/18 21:00 02/20/18 20:59 01/22/18 20:34 500 MG Lamotrigine (Lamictal Tab) 400 mg QAM PO 01/22/18 09:00 02/21/18 08:59 01/23/18 08:41 400 MG Nortriptyline HCl (Pamelor Cap) 75 mg HS PO 01/21/18 21:00 02/20/18 20:59 01/22/18 20:34 75 MG Polymyxin/ Trimethoprim Sulfate (Polytrim Oph Soln) 2 drops DAILY OPL 01/22/18 09:00 02/21/18 08:59 01/23/18 09:00 2 DROPS Zolpidem Tartrate (Ambien Tab) 5 mg HSZ PRN PO 01/21/18 18:45 02/20/18 18:44 Ondansetron HCl (Zofran Inj) 4 mg Q6H PRN IV 01/21/18 18:45 02/20/18 18:44 01/22/18 20:41 4 MG Miscellaneous Information (Consult Glycemic Management Pharmacy) 1 ea DAILY PRN N/A 01/21/18 21:15 02/20/18 21:14 Miscellaneous (Iv Fluids Completed) 1 ea PRN PRN N/A 01/21/18 21:30 01/21/19 21:29 Glucose (Glucose 40% Gel) 15-30 GRAMS 15 GRAMS... UD PRN PO 01/21/18 22:00 02/20/18 21:59 Glucose (Glucose Chew Tab) 4-8 Tablets 4 Tabl... UD PRN PO 01/21/18 22:00 02/20/18 21:59 01/22/18 03:50 8 TABS Dextrose (Dextrose 50% 50ML Syringe) 25-50ML OF 50% DW IV FOR... UD PRN IV 01/21/18 22:00 02/20/18 21:59 01/22/18 04:23 50 ML Glucagon (Glucagon Inj) 1 mg UD PRN SQ 01/21/18 22:00 02/20/18 21:59 Hydromorphone HCl (Dilaudid Inj) 1 mg Q3H PRN IV 01/21/18 23:45 02/04/18 23:44 01/22/18 23:28 1 MG Zonisamide (Zonegran) 200 mg PM PO 01/22/18 21:00 02/21/18 20:59 01/22/18 20:34 200 MG Zonisamide (Zonegran) 100 mg QAM PO 01/22/18 09:00 02/21/18 08:59 01/23/18 08:40 100 MG Insulin Glargine (Lantus Solostar Pen) SEE PROTOCOL TEXT HS SC 01/22/18 21:00 02/21/18 20:59 01/22/18 20:39 15 UNITS Insulin Aspart (novoLOG ASPART) SLIDING SCALE ACHS SC 01/22/18 17:15 02/21/18 00:00 01/23/18 13:15 3 UNITS Objective Vital Signs Date Time Temp Pulse Resp B/P (MAP) Pulse Ox O2 Delivery O2 Flow Rate FiO2 01/23/18 07:35 36.8 81 16 131/77 (95) 98 Room Air 01/22/18 23:25 Room Air 01/22/18 23:13 36.7 86 18 110/69 (83) 100 Room Air 01/22/18 15:40 36.8 86 20 113/75 (88) 99 Room Air 01/22/18 15:23 Room Air Physical Exam General Appearance: WD/WN, no apparent distress Eyes: normal inspection ENT: hearing grossly normal Neck: supple Respiratory/Chest: lungs clear, normal breath sounds, no respiratory distress Cardiovascular: regular rate, rhythm Abdomen: normal bowel sounds, soft, + tenderness (epigastric tenderness) Extremities: normal range of motion, no pedal edema Neurologic/Psychiatric: alert, normal mood/affect, oriented x 3 Laboratory Results 01/23/18 06:45 Test 01/23/18 06:45 01/23/18 12:10 Anion Gap 4.0 mmol/L (3-11) Est Creatinine Clear Calc Drug Dose 108.3 ml/min Estimated GFR () 99.5 Estimated GFR (Non- 85.9 BUN/Creatinine Ratio 8.8 (10-20) Calcium Level 8.1 mg/dl (8.5-10.1) Total Bilirubin 0.4 mg/dl (0.2-1) Direct Bilirubin 0.1 mg/dl (0-0.2) Aspartate Amino Transf (AST/SGOT) 15 U/L (15-37) Alanine Aminotransferase (ALT/SGPT) 24 U/L (12-78) Alkaline Phosphatase 71 U/L (45-117) Total Protein 6.9 gm/dl (6.4-8.2) Albumin 3.4 gm/dl (3.4-5.0) Bedside Glucose 160 mg/dl (70-90) Assessment and Plan 27 y/o F with PMH of type 1 DM , Seizure s/p lap cholecystectomy on 11/27 with biliary stent placed after a bile leak and scheduled to be removed 02/10 was admitted with abdominal pain, nausea and vomiting. Acute abdominal pain s/p lap jonathan and biliary stent: - CT abd/pelvis reveals no occlusion of stent or post surgical complications or bowel obstruction - GI consult appreciated - Trend LFTs, will order HIDA if not improving symptomatically - Diet advanced as tolerated. If she doesn't tolerate solids, recommended to make patient NPO after midnight and consult Dr. Woo or Judy Hollis for EGD tomorrow per GI - Zofran and pain meds DMT1: - Had a few episodes of hypoglycemia, insulin dosing adjusted per pharmacy - Monitor blood sugars - Hgb a1c from 12/17 was 7.6, will need tighter control Seizure disorder - cont Zonegran, Lamotrigine Headache; - continue nortriptyline. Tylenol PRN Full code DVT prophylaxis: SCDs Resident Physician Supervision Note: I interviewed and examined the patient. Discussed with Dr. Valiente and agree with findings and plan as documented in the note. Any exceptions or clarifications are listed here: None Documented By: Vijay Guy tolerating slowly advancing diet well. does have headache that's really bothering her vitals noted nad breathing unlabored no pallor or icterus ost/msk - L>R suboccipitals high tone/tender/decreased ROM - ~3 points on each side that were tender though, but L>R - inhibitory pressure - improved -- pt tolerated well and noted some improvement in headache immediately abdominal pain - as above and management per GI, advancing diet, EGD if fails, home if does well DM1 - insulin management headache - likely tension brought on by migraine somatic dysfunction cervical - OMT as above otherwise as above Resident Tracking Resident Involvement: Resident Care Provided Care Provided: Adult Hospital Medicine
[2018-01-23 15:03] VITALS: BP 120/76; PULSE 74; TEMP 36.5; O2SAT 99
[2018-01-23] MEDS ORDERED: KETOROLAC TROMETHAMINE 15 MG/ML VIAL IV ONE (16:45)
[2018-01-23] MEDS ORDERED: KETOROLAC TROMETHAMINE 15 MG/ML VIAL ONE (16:55)
[2018-01-23] MEDS: NORTRIPTYLINE HCL 25 MG CAP PO SCH (21:58)
[2018-01-23] MEDS: INSULIN GLARGINE SOLOSTAR 100 UNITS/ML 3 ML PEN SC SCH (22:05)
[2018-01-23 23:03] VITALS: BP 118/74; PULSE 84; TEMP 36.9; O2SAT 98
[2018-01-24 06:56] LABS: ALBUMIN 3.4 gm/dl (3.4-5.0); ALKALINE PHOSPHATASE 80 U/L (45-117); ALT/SGPT 32 U/L (12-78); AST/SGOT 25 U/L (15-37); BLOOD UREA NITROGEN 11 mg/dl (7-18); CALCIUM 8.5 mg/dl (8.5-10.1); CARBON DIOXIDE 25 mmol/L (21-32); CREATININE 1.08 mg/dl (0.60-1.20); GLUCOSE 248 mg/dl (70-99); SODIUM 136 mmol/L (136-145)
[2018-01-24 08:19] VITALS: BP 111/75; PULSE 88; TEMP 36.6; O2SAT 98
[2018-01-24] MEDS ORDERED: ACETAMINOPHEN 325 MG TAB PO PRN (08:30)
[2018-01-24] MEDS ORDERED: NURSING VERBAL MED ORDER ONE (08:30)
[2018-01-24] MEDS: INSULIN ASPART 100 UNITS/ML 3 ML PEN SC SCH ×2 (08:36→12:40)
[2018-01-24] MEDS: TRIMETHOPRIM/POLYMYXIN B OPL SCH (08:38)
[2018-01-24] MEDS: ZONISAMIDE 100 MG CAP PO SCH (08:40)
[2018-01-24] MEDS ORDERED: INSULIN GLARGINE SOLOSTAR 100 UNITS/ML 3 ML PEN SC SCH ×2 (09:00→21:00)
--- NOTE | 2018-01-24 10:03 | Gastroenterology Progress Note ---
Progress Note Date of Service: Jan 24, 2018 Subjective Pt evaluation today including: conversation w/ patient, physical exam, chart review, lab review Pt was seen and evaluated, chart reviewed. Continues to improve. Tolerating breakfast this AM. Abd pain is largely resolved. Does have mild upper abd pain to palpation. No nausea, vomiting. No fever, chills, CP, SOB. Review of Systems Constitutional: No fever, No chills Respiratory: No cough, No shortness of breath Cardiac: No chest pain, No edema Abdomen: + pain, No nausea, No vomiting, No diarrhea, No constipation, No GI bleeding Medications Current Inpatient Medications Medications (Trade) Dose Ordered Sig/Jewels Route Start Time Stop Time Status Last Admin Dose Admin Ioversol (Optiray 320) 100 ml UD PRN IV 01/21/18 15:45 01/25/18 15:44 Lamotrigine (Lamictal Tab) 500 mg HS PO 01/21/18 21:00 02/20/18 20:59 01/23/18 21:58 500 MG Lamotrigine (Lamictal Tab) 400 mg QAM PO 01/22/18 09:00 02/21/18 08:59 01/24/18 08:38 400 MG Nortriptyline HCl (Pamelor Cap) 75 mg HS PO 01/21/18 21:00 02/20/18 20:59 01/23/18 21:58 75 MG Polymyxin/ Trimethoprim Sulfate (Polytrim Oph Soln) 2 drops DAILY OPL 01/22/18 09:00 02/21/18 08:59 01/24/18 08:38 2 DROPS Zolpidem Tartrate (Ambien Tab) 5 mg HSZ PRN PO 01/21/18 18:45 02/20/18 18:44 Ondansetron HCl (Zofran Inj) 4 mg Q6H PRN IV 01/21/18 18:45 02/20/18 18:44 01/22/18 20:41 4 MG Miscellaneous Information (Consult Glycemic Management Pharmacy) 1 ea DAILY PRN N/A 01/21/18 21:15 02/20/18 21:14 Miscellaneous (Iv Fluids Completed) 1 ea PRN PRN N/A 01/21/18 21:30 01/21/19 21:29 Glucose (Glucose 40% Gel) 15-30 GRAMS 15 GRAMS... UD PRN PO 01/21/18 22:00 02/20/18 21:59 Glucose (Glucose Chew Tab) 4-8 Tablets 4 Tabl... UD PRN PO 01/21/18 22:00 02/20/18 21:59 01/22/18 03:50 8 TABS Dextrose (Dextrose 50% 50ML Syringe) 25-50ML OF 50% DW IV FOR... UD PRN IV 01/21/18 22:00 02/20/18 21:59 01/22/18 04:23 50 ML Glucagon (Glucagon Inj) 1 mg UD PRN SQ 01/21/18 22:00 02/20/18 21:59 Hydromorphone HCl (Dilaudid Inj) 1 mg Q3H PRN IV 01/21/18 23:45 02/04/18 23:44 01/22/18 23:28 1 MG Zonisamide (Zonegran) 200 mg PM PO 01/22/18 21:00 02/21/18 20:59 01/23/18 21:57 200 MG Zonisamide (Zonegran) 100 mg QAM PO 01/22/18 09:00 02/21/18 08:59 01/23/18 08:40 100 MG Insulin Glargine (Lantus Solostar Pen) SEE PROTOCOL TEXT HS SC 01/22/18 21:00 01/24/18 23:59 01/23/18 22:05 15 UNITS Insulin Aspart (novoLOG ASPART) SLIDING SCALE ACHS SC 01/22/18 17:15 02/21/18 00:00 01/24/18 08:36 9 UNITS Insulin Glargine (Lantus Solostar Pen) 19 units HS SC 01/25/18 21:00 02/24/18 20:59 Acetaminophen (Tylenol Tab) 650 mg Q8H PRN PO 01/24/18 08:30 02/23/18 08:29 01/24/18 08:43 650 MG Objective Vital Signs Date Time Temp Pulse Resp B/P (MAP) Pulse Ox O2 Delivery O2 Flow Rate FiO2 01/24/18 08:19 36.6 88 16 111/75 (87) 98 Room Air 01/24/18 07:40 Room Air 01/24/18 00:00 Room Air 01/23/18 23:03 36.9 84 16 118/74 (89) 98 Room Air 01/23/18 15:45 Room Air 01/23/18 15:03 36.5 74 16 120/76 (91) 99 Room Air Physical Exam General Appearance: no apparent distress Eyes: PERRL ENT: hearing grossly normal Neck: supple, trachea midline Respiratory/Chest: lungs clear, normal breath sounds Cardiovascular: regular rate, rhythm, no edema, no gallop, no JVD Abdomen: normal bowel sounds, soft, no organomegaly, no pulsatile mass, + tenderness (mild upper abd pain to palpation) Neurologic/Psych: alert, normal mood/affect, oriented x 3 Skin: normal color Laboratory Results Last 24 Hours Test 01/23/18 12:10 01/23/18 17:02 01/23/18 20:45 01/24/18 00:03 Bedside Glucose 160 mg/dl 139 mg/dl 199 mg/dl 62 mg/dl Test 01/24/18 00:42 01/24/18 05:59 01/24/18 08:10 Bedside Glucose 88 mg/dl 320 mg/dl Sodium Level 136 mmol/L Potassium Level 4.0 mmol/L Chloride Level 106 mmol/L Carbon Dioxide Level 25 mmol/L Anion Gap 5.0 mmol/L Blood Urea Nitrogen 11 mg/dl Creatinine 1.08 mg/dl Est Creatinine Clear Calc Drug Dose 91.3 ml/min Estimated GFR () 80.9 Estimated GFR (Non- 69.8 BUN/Creatinine Ratio 10.6 Random Glucose 248 mg/dl Calcium Level 8.5 mg/dl Total Bilirubin 0.3 mg/dl Direct Bilirubin < 0.1 mg/dl Aspartate Amino Transf (AST/SGOT) 25 U/L Alanine Aminotransferase (ALT/SGPT) 32 U/L Alkaline Phosphatase 80 U/L Total Protein 7.0 gm/dl Albumin 3.4 gm/dl Assessment and Plan 27 year old female with recent cholecystectomy, complicated by bile leak s/p ERCP last month who presented to the ED with acute epigastric pain, nausea and vomiting x 2 episodes. No evidence stent occlusion or biloma. IBS vs gastroenteritis vs PUD vs gastroparesis. Either way, she is clinically improving , tolerating diet and breakfast this am w/ plans of discharge today. - No GI contraindication to discharge - PPI 20 mg daily - OP EGD - OP GES - Keep ERCP as scheduled on February 09 - GI to sign off. Please call with any questions or concerns. I performed a history and physical examination of the patient. I have discussed the patient's case, impression and plan with REMEDIOS Brown. Her note reflects my findings and plan. Out patient removal of stent arranged. Doing well! Fidencio Woo MD
--- NOTE | 2018-01-24 11:15 | Discharge Summary ---
Discharge Summary Date of Service Jan 24, 2018. Discharge Summary Admission Date: Jan 21, 2018 at 18:50 Discharge Disposition: Home Principal Diagnosis: Abdominal Pain Problems/Secondary Diagnoses: 1) DM I - age 9 2) Cholecystitis 3) Seizure disorder 4) Migraine headaches Procedures: ABD/PELVIS IV CONTRAST ONLY CLINICAL HISTORY: 27 years-old Female presenting with epigastric pain and sob recent jonathan. TECHNIQUE: Multidetector CT of the abdomen and pelvis was performed after the administration of intravenous contrast. IV contrast: 92 mL of Optiray 320. A dose lowering technique was used consistent with the principles of ALARA (as low as reasonably achievable). COMPARISON: 12/15/2017. CT DOSE (mGy.cm): The estimated cumulative dose is 891.06 inclusive of the CTA chest. FINDINGS: Valve Machine Operator topogram: Cholecystectomy clips and common bile duct stent noted. Lung bases: Minimal basilar opacities, likely atelectasis. Normal heart size. No pericardial or pleural effusion. Liver: Normal morphology. No liver lesion. Patent hepatic vasculature. Biliary: Common bile duct stent in place. Mild biliary ductal prominence likely a reservoir effect in the post cholecystectomy state. Gallbladder surgically absent. Pancreas: Normal. Spleen: Normal. Adrenal glands: Normal. Kidneys and ureters: Nonobstructing punctate calculus at the lower pole the right kidney. Possible punctate calculus also noted at the lower pole the left kidney. No hydronephrosis. Normal enhancement of the kidneys. Ureters grossly normal. Possibly of intra-abdominal fat makes evaluation of the ureter somewhat difficult. Bladder: Normal. Pelvic organs: Uterus and ovaries normal. Dominant follicle suggested in the right ovary. Bowel: Mild apparent wall thickening of the proximal transverse colon likely due to peristalsis/underdistention. The appendix is normal and may contain prior oral contrast or appendicolith. No bowel obstruction. Fluid noted throughout the small bowel. Peritoneal cavity: Trace free fluid in the pelvis. Lymph nodes: No enlarged lymph nodes in the abdomen or pelvis. Vasculature: Aorta and IVC patent and normal in caliber. Abdominal wall: Normal. Musculoskeletal: Normal. IMPRESSION: 1. Interval evolution of postsurgical changes related to cholecystectomy. The previously noted fluid in Morison's pouch is no longer present. Prominence of the bile ducts likely a reservoir effect in the post cholecystectomy state. The common bile duct stent remains in place. 2. No postsurgical complication. No bowel obstruction. 3. Nonobstructing bilateral nephrolithiasis. CT ANGIOGRAM OF THE CHEST CLINICAL HISTORY: Chest and epigastric pain. Shortness of breath. Vomiting. RECENT CHOLECYSTECTOMY. COMPARISON STUDY: 02/25/2015 TECHNIQUE: Following the IV administration of 92 mL of Optiray-320, CT angiogram of the thorax was performed from the thoracic inlet to the lung bases utilizing the pulmonary embolus protocol. Images are reviewed in the axial, sagittal, and coronal planes. IV contrast was administered without complication. MIP imaging was performed. A dose lowering technique was utilized adhering to the principles of ALARA. CT DOSE: 891.06 mGy.cm FINDINGS: No pathologically enlarged axillary mediastinal or hilar lymph nodes were visualized. There was no evidence of thoracic aortic dilatation. There were no pulmonary artery filling defects to indicate acute pulmonary embolism. No pleural effusions are visualized. There are mild dependent atelectatic changes. There is no focal pulmonary consolidation. There is a 3 mm pleural-based nodule within the right lower lobe. This remains unchanged the prior 2014 study. IMPRESSION: 1. No acute intrathoracic findings 2. No evidence of acute pulmonary embolism 3. No evidence of focal pulmonary consolidation. Medication Reconciliation New Medications: Omeprazole (Omeprazole) 20 Mg Tab 1 TAB PO DAILY for 30 Days, #30 TAB 1 Refill Continued Medications: Insulin Glargine (Lantus) 100 Unit/Ml Inj 19 UNITS SC QPM Insulin Lispro (Human) (Humalog) 100 Unit/Ml Inj SC AC SLIDING SCALE, PER PT uses insulin to CHO ratio of 1 unit for every 10g CHO consumed Lamotrigine (Lamictal) 200 Mg Tab 400 MG PO QAM Lamotrigine (Lamictal) 100 Mg Tab 500 MG PO HS Multivitamins/Minerals (Mvi With Minerals) Tab 1 TAB PO DAILY, TAB Nortriptyline Hcl (Pamelor) 75 Mg Cap 75 MG PO HS, CAP Polymyxin/Trimethoprim Oph (Polytrim Oph) Soln 2 DROPS OPL Q3HRS Zonisamide (Zonegran) 100 Mg Cap 200 MG PO QPM Zonisamide (Zonegran) 100 Mg Cap 100 MG PO QAM, CAP Discharge Exam The patient was seen and examined at bedside. Pt tolerated her breakfast well. Is complaining of a HERRERA which is not unusual for the patient. No vomiting today. Pt had a formed BM yesterday. Review of Systems: Constitutional: No fever, No chills ENT: No hearing loss Respiratory: No cough, No sputum, No wheezing, No shortness of breath, No dyspnea on exertion Cardiovascular: No chest pain Abdomen: No pain, No nausea, No vomiting, No diarrhea, No constipation Genitourinary - Female: No dysuria Genitourinary - Male: No hematuria Physical Exam: General Appearance: WD/WN, no apparent distress Eyes: normal inspection Neck: supple, no adenopathy Respiratory/Chest: chest non-tender, lungs clear, normal breath sounds, no respiratory distress Cardiovascular: regular rate, rhythm, no edema, no gallop, no JVD, no murmur , normal peripheral pulses Abdomen / GI: normal bowel sounds, non tender, soft, no organomegaly, no pulsatile mass Extremities: normal inspection, no calf tenderness, no pedal edema Neurologic/Psychiatric: 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 No significant pathology was found on imagining. Patient tolerated a PO diet and was discharged in good condition. Biliary stent scheduled to be removed on 02/09/[address] Chand. She was discharged on a PPI. Acute abdominal pain s/p lap jonathan and biliary stent CT abd/pelvis reveals no occlusion of stent or post surgical complications or bowel obstruction Gastroenterology consulted - unclear the exact cause of pain, no evidence stent occlusion or biloma. Differentials include IBS, PUD, Gastroenteritis and Gastroparesis. Since patient tolerated a PO diet, discharge with PPI 20mg daily with outpatient follow up. DM1 Had a few episodes of hypoglycemia, insulin dosing adjusted per pharmacy Hgb a1c from 12/17 was 7.6, will need tighter control as outpatient. Seizure disorder Continued home medications Zonegran, Lamotrigine Headache Continued home medications nortriptyline. Tylenol PRN Follow up with PCP (REMEDIOS Otero) & GI (Dr. Chand) at regularly scheduled appointments. Total Time Spent: Greater than 30 minutes This includes examination of the patient, discharge planning, medication reconciliation, and communication with other providers. Discharge Instructions Please refer to the electronic Patient Visit Report (Discharge Instructions) for additional information. Additional Copies To Benito Chand M.D.; Dayana Moeller C.R.N.P Resident Involvement: Resident Care Provided Care Provided: [facility] Medicine Reviewed: Pt Seen/Exam by Me History abdominal pain resolved. tolerated breakfast well. Constitutional: denies: fever Respiratory: negative: short of breath Cardiovascular: denies chest pain Gastrointestinal/Abdominal: negative: abdominal pain General Appearance: no apparent distress Respiratory: lungs clear, no respiratory distress Cardiovascular: regular rate, rhythm Gastrointestinal: normal bowel sounds, non tender, soft Neurologic/Psychiatric: alert, oriented x 3 Skin Characteristics: warm/dry Assessment/Plan Resident Physician Supervision Note: I independently interviewed and examined the patient and verified the mcgrath history and physical, reviewed labs and image studies, discussed the case with the resident Dr. Alvarez and agree with the findings and care plan. Time spent in discharge 35 min
[2018-01-24] MEDS ORDERED: OMEP20TA PO (11:21)
--- NOTE | 2018-01-24 11:23 | Discharge Instructions ---
Discharge Instructions Date of Service Jan 24, 2018. Admission Reason for Admission: Abdominal Pain Discharge Discharge Diagnosis / Problem: Abdominal Pain Discharge Goals Goal(s): Decrease discomfort, Improve function, Increase independence, Improve disease control, Improve nutritional status Activity Recommendations Activity Limitations: per Instructions/Follow-up section . Instructions / Follow-Up Instructions / Follow-Up It's presently unclear as to where exactly your abdominal pain came from. The delineator believes that the abdominal pain could be coming from Irritable bowel syndrome, Gastroenteritis or Gastroparesis. We do not believe that your biliary stent is occluded. We recommend close follow up with Dr. Chand and to keep your appointment for removal of the stent in the next few weeks. You are being discharged on 20mg daily of Omeprazole. Omeprazole will reduce the amount of acid in your stomach in case your pain is coming from reflux or gastritis. Please take this medication once daily as prescribed. Your Machine Coremaker or Primary Care Provider may with to continue or discontinue the Omeprazole based on your symptoms. Please call your PCP or return to the ER if you experience a return in your nausea, vomiting or intractable abdominal pain. You may continue to take your home medications as prescribed. Current Hospital Diet Patient's current hospital diet: Diabetes Type 2 Diet Discharge Diet Recommended Diet: Diabetes Type 1 Diet Pending Studies Studies pending at discharge: no Laboratory Results Hemoglobin A1c Test 12/17/17 07:07 Range/Units Estimated Average Glucose 171 mg/dl Hemoglobin A1c 7.6 H 4.5-5.6 % Medical Emergencies . Who to Call and When: Medical Emergencies: If at any time you feel your situation is an emergency, please call 911 immediately. . Non-Emergent Contact Non-Emergency issues call your: Primary Care Provider, Machine Coremaker Call Non-Emergent contact if: temperature is above 100.5, your pain is not controlled, your pain is worsening, your pain is unusual for you, your pain is concerning you . . "Provider Documentation" section prepared by Severino Alvarez. . Resident Involvement: Resident Care Provided Care Provided: Adult Hospital Medicine
[2018-01-24 13:16] VITALS: Ht 175.3 cm; Wt 87.0 kg
[2018-01-24 13:25] VITALS: BP 111/75; PULSE 88; TEMP 36.6; O2SAT 98
[2018-01-24] MEDS ORDERED: INSULIN ASPART 100 UNITS/ML 3 ML PEN SC SCH ×2 (17:15→21:00)
[2018-01-25] MEDS ORDERED: INSULIN GLARGINE SOLOSTAR 100 UNITS/ML 3 ML PEN SC SCH (21:00)
== END 2018-01-24 14:13 | disposition home or self-care (01) ==
LOC: C.EDB 14:24 → C.MSN 18:50 → ENRESERV 19:33
PROVIDERS: ADMIT Internal Medicine; ATTEND Family Medicine
DX: R10.9 Unspecified abdominal pain (principal); E10.9 Type 1 diabetes mellitus without complications; K81.9 Cholecystitis, unspecified; G40.909 Epilepsy, unspecified, not intractable, without status epilepticus; G43.909 Migraine, unspecified, not intractable, without status migrainosus; Z79.4 Long term (current) use of insulin; Z79.899 Other long term (current) drug therapy; Z90.49 Acquired absence of other specified parts of digestive tract; Z82.69 Family history of other diseases of the musculoskeletal system and connective tissue

== ENCOUNTER 2023-10-15 16:13 | Inpatient (IN) ==
[~2023-10-15 16:13] MED LIST changes: -BISA-16 PO; -INSDGI SC; -INSU100I SC; -LAMO100T PO; -LAMO200T35 PO; -NORT75CA2 PO; -OXYC-57 PO; -ZONI100C39 PO; +diphenhydrAMINE 50 MG/ML VIAL IV PRN
[2023-10-15] MEDS: LACTATED RINGER'S 1,000 ML IV PRN ×2 (16:25→17:36)
[2023-10-15] MEDS ORDERED: BETAMETH SOD PHOS/ACETATE IA 6 MG/ML IM STA (16:39)
[2023-10-15] MEDS ORDERED: BETAMETH SOD PHOS/ACETATE IA 6 MG/ML ONE (16:42)
[2023-10-15] MEDS ORDERED: SODIUM CHLORIDE 0.9% 250 ML IV PRN (17:12)
[2023-10-15 17:30] LABS: Appearance Urine Clear (Clear); Bacteria Urine Automated Negative (Negative); Bilirubin Urine Negative (Negative); Blood Urine Negative (Negative); Color Urine Yellow; Epithelial Cell Urine Auto >30 /lpf (0-5); Glucose Urine UA Negative (Negative); Ketones Urine 4+ (Negative); Leukocyte Esterase Urine Negative (Negative); Nitrite Urine Negative (Negative); Protein Urine Trace (Negative); RBC Urine Automated 0-4 /hpf (0-4); Specific Gravity Urine 1.009 (1.000-1.030); Urobilinogen Urine Negative (Negative); pH Urine 5.5 (4.5-7.5)
[2023-10-15 17:39] LABS: Basophils # (auto) 0.03 K/uL (0.00-0.20); Basophils % (auto) 0.3 %; Hematocrit (blood only) 34.1 % (37.0-47.0); Hemoglobin 11.8 g/dl (12.0-16.0); Immature Granulocytes # (auto) 0.17 K/uL (0.01-0.20); Immature Granulocytes % (auto) 1.9 %; Lymphocytes # (auto) 1.08 K/uL (1.20-3.40); Lymphocytes % (auto) 12.1 %; Mean Corpuscular Hemoglobin 33.9 pg (25.0-34.0); Mean Corpuscular Hgb Conc 34.6 g/dL (32.0-36.0); Monocytes # (auto) 0.65 K/uL (0.11-0.59); Monocytes % (auto) 7.3 %; Neutrophils # (auto) 7.03 K/uL (1.40-6.50); Neutrophils % (auto) 78.4 %; Platelet Count 256 K/uL (130-400); Red Blood Count 3.48 M/uL (4.20-5.40); White Blood Count 8.96 K/ul (4.8-10.8)
[2023-10-15] MEDS ORDERED: MoRPHine SULFATE PF 1 MG/ML 10 ML AMP/VIAL ONE (17:39)
[2023-10-15] MEDS ORDERED: CITRIC ACID/SODIUM CITRATE 15 ML UDC ONE (17:39)
[2023-10-15] MEDS ORDERED: fentaNYL citrate PF 100 MCG/2 ML VIAL ONE ×3 (17:39→19:13)
[2023-10-15] MEDS ORDERED: OXYTOCIN 10 UNITS/ML VIAL ONE (17:43)
--- NOTE | 2023-10-15 17:44 | History & Physical Report ---
Date of Service October 15, 2023 Assessment & Plan (1) Polyhydramnios: Plan: Luzma is a 33-year-old -1-0-2 currently at 34 weeks 2 days gestational age presents in active labor. Patient has cervical change from 3/50/-4 to 4.5/70/-3 over approximately 1 hour. Discussed diagnosis of labor. Patient would like a repeat section. We discussed risk and benefits of a repeat and consent forms reviewed and signed. Declined tubal ligation. Patient has type 1 diabetes and will consult medicine service for management after delivery. Patient also has seizure disorder and will continue home medications (2) Previous delivery affecting , antepartum: (3) Type 1 diabetes mellitus during : (4) Active labor: History of Present Illness Primary Care Provider: REMEDIOS Locke Lzuma is a 33-year-old -1-0-2 currently at 34 weeks 2 days gestational age presents with contractions worsening in frequency and intensity. She reports contractions starting around 230 this afternoon and had progressively worsened. On first evaluation on labor and delivery patient was noted to be 3 cm dilated 50% effaced -4 station. Her cervix was noted to be closed on 09/25. Repeat evaluation approximately 1 hour later was noted to be 4.5 centimeters dilated 70% effaced -3 station. Patient was having painful contractions every 2 to 3 minutes. Discussed the diagnosis of labor. Patient was given betamethasone upon presentation as she was noted are to be 3 cm dilated. complicated by multiple factors include: DM Protocol *Baby ASA daily, start 12-28wks, continue until del *Ophthalmology consult *Dietary consult *Qmonthly urine cultures * [id number] 08/10/23 *Twice weekly NST's @32 or 34wks *Serial Growth US starting 28wks *Baseline 24hr Urine and Q trimester--baseline 495 (07/05) repeat at 28 weeks for thrid trimester. *EKG--done 09/2022, repeat done 04/23/23 *Deliver by [facility] Previous Section affecting Delivery *repeat c/s, declines , declines tubal C/S SCHEDULED FOR 11/19/[address] THOMPSON Prior delivery Seizure Disorder (follows [facility] [place]) *[facility]-recent note in chart, notes discussion of meds in Polyhydramnios *Weekly NSTs @ Dx *Weekly AFIs @ Dx *If pocket >16 refer to M *Deliver between [id number] OB Labs: Blood Type O Positive 05/10/23 Antibody Screen NEGATIVE 05/10/23 Hemoglobin 10.9 g/dl (12.0-16.0) L 09/14/23 Hematocrit 31.8 % (37.0-47.0) L 09/14/23 Mean Corpuscular Volume 94.9 fL (80.0-100.0) 09/14/23 Platelet Count 329 K/uL (130-400) 09/14/23 Rubella IgG Antibody Immune (Immune) 05/10/23 Rapid Plasma Reagin Nonreactive (Nonreactive) 05/10/23 Hepatitis B Surface Antigen. NON-REACTIVE (NON-REACTIVE) 05/10/23 Hepatitis C Antibody (EIA) NON-REACTIVE (NON-REACTIVE) 05/10/23 HIV (1&2) Ag and Ab Confirmation NON-REACTIVE (NON-REACTIVE) 05/10/23 OB Optional Labs: Chlamydia trachomatis RNA Not Detected (NotDetected) 04/14/23 Neisseria gonorrhoeae RNA Not Detected (NotDetected) 04/14/23 Thyroid Stimulating Hormone (TSH) 0.792 uIu/ml (0.300-4.500) 09/14/23 Labs Reviewed: cfDNA declines smp declines qs--akh Allergies Allergy/AdvReac Type Severity Reaction Status Date / Time fluoxetine [From Prozac] Allergy Intermediate Rash, Hives Verified 10/13/23 14:27 Home Medications Medication Instructions Recorded Confirmed Type clobazam 10 mg tablet (Onfi) 15 mg PO HS 10/10/22 10/15/23 History insulin syringe-needle U-100 0.5 #100 ea 11/06/22 10/13/23 Rx mL 29 gauge x 1/2" (BD Insulin Syringe) pantoprazole 40 mg tablet,delayed 40 mg PO DAILY #90 tabs 11/13/22 10/13/23 Rx release nortriptyline 75 mg capsule 75 mg PO HS #90 caps 02/19/23 10/15/23 Rx vit no.[id number] PO 04/07/23 10/13/23 History [ Plus Vitamin-Mineral] acetone (urine) test (Ketone Urine #50 ea 05/31/23 10/13/23 Rx Test strips) blood sugar diagnostic (OneTouch #100 ea 05/31/23 10/13/23 Rx Verio test strips) blood-glucose sensor (FreeStyle #3 ea 05/31/23 10/13/23 Rx Dawna 3 Sensor device) lancets 33 gauge #150 ea 05/31/23 10/13/23 Rx lamotrigine 200 mg tablet See Rx Instructions PO BID 07/21/23 10/15/23 History zonisamide 100 mg capsule 300 mg PO BID 07/21/23 10/15/23 History ferrous sulfate [Iron (ferrous PO 09/29/23 10/13/23 History sulfate)] insulin glargine 100 unit/mL (3 See Rx Instructions subcut HS #45 09/29/23 10/15/23 Rx mL) subcutaneous pen (Lantus mL Solostar U-100 Insulin) insulin lispro 100 unit/mL 1 sliding scale dose subcut TIDM 09/29/23 10/15/23 Rx subcutaneous solution 90 days #90 mL Patient History Medical History delivery Screen for STD (sexually transmitted disease) Depression with anxiety pt denies Migraines hx Surgical History History of section History of arthroscopy of knee left S/P cholecystectomy Family History Grandmother (Paternal) Breast cancer Cervical cancer Colorectal cancer Mother Hypertension Grandfather (Maternal) Heart disease Grandfather (Paternal) Multiple sclerosis Grandmother (Maternal) Lung cancer Denies family history of Ovarian cancer Prostate cancer Myocardial infarction Social History Smoking Status: Never smoker Second Hand Exposure: No; Do You Dip or Chew Tobacco: No; Tobacco Cessation Education Requested by Patient: No Hx Alcohol Use: No Hx Substance Use: No Preferred Language: Sammarinese Communication Ability: Effective Button Sewer Required: No Beliefs That Will Affect Care: None marital status: Single marital status details: Phani (30) [phone] Current Living Situation: Spouse Current Living Situation Comment: FOB- Juaquin, Kids; Yudith 11, Azam 8 current occupational status: employed 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 How many Children do You have: 2 Other Information That Helps Us Care for You: No Feels Safe at Home: Yes Safety Concerns: Feels Safe At This Time Childhood Exposure to Second-Hand Smoke: Yes Diet: regular caffeine: Yes Dental Care, Regularly: Yes Physical Activity Frequency: Daily Seatbelt Use: always Sunscreen Use: No Assistive Devices: Glasses Physical Exam Genitourinary: Manual OB Exam: + cervical dilation (4.5), + cervical effacement 70% and + station high OB Exam Monitor Tracing: + external FHT monitor used, + external uterine monitor used, + category I and + normal FHT variability Results & Data Vital Signs (Past 12 Hours) Vital Signs Temp Pulse Resp BP 10/15/23 16:32 36.4 C L 20 10/15/23 16:18 102 H 153/77 H Code Status & VTE Plan VTE Prophylaxis Plan VTE Prophylaxis will be ordered: No Coding Level of Care Code None Diagnoses Polyhydramnios in third trimester complication, single or unspecified fetus O40.3XX0 Fetus number: single or unspecified fetus Trimester: third trimester Previous delivery affecting , antepartum O34.219 Type 1 diabetes mellitus during in third trimester O24.013 Trimester: third trimester Active labor, single or unspecified fetus O60.10X0 Fetus number: single or unspecified fetus (1) Polyhydramnios Fetus number: single or unspecified fetus Trimester: third trimester Qualified Code(s): O40.3XX0 - Polyhydramnios, third trimester, not applicable or unspecified (3) Type 1 diabetes mellitus during Trimester: third trimester Qualified Code(s): O24.013 - Pre-existing type 1 diabetes mellitus, in , third trimester (4) Active labor Fetus number: single or unspecified fetus Qualified Code(s): O60.10X0 - Prete rm labor with delivery, unspecified trimester, not applicable or unspecified
[2023-10-15] MEDS ORDERED: AZITHROMYCIN 500 MG in DEXTROSE 5% 250 ML IV SCH (17:45)
[2023-10-15] MEDS ORDERED: CITRIC ACID/SODIUM CITRATE 15 ML UDC PO SCH (17:45)
--- NOTE | 2023-10-15 17:47 | Anesthesiology Consultation ---
Date of Service October 15, 2023 Assessment & Plan ASA ASA3 Proposed Anesthesia Anesthesia Type: Spinal Risk / Benefits Reviewed With: PT / POA / Parent / Guardian, Accepts Plan and Informed Consent Obtained History Surgery Operation Date: 10/15/23 17:30 Proposed Procedures p Section in LD - Phani Blair MD Height/Weight Height: 5 ft 10 in Weight: 107.955 kg Allergies Allergy/AdvReac Type Severity Reaction Status Date / Time fluoxetine [From Prozac] Allergy Intermediate Rash, Hives Verified 10/13/23 14:27 Medications Home Medications Medication Instructions Recorded Confirmed Last Taken clobazam 10 mg tablet (Onfi) 15 mg PO HS 10/10/22 10/15/23 Unknown insulin syringe-needle U-100 0.5 #100 ea 11/06/22 10/13/23 Unknown mL 29 gauge x 1/2" (BD Insulin Syringe) pantoprazole 40 mg tablet,delayed 40 mg PO DAILY #90 tabs 11/13/22 10/13/23 Unknown release nortriptyline 75 mg capsule 75 mg PO HS #90 caps 02/19/23 10/15/23 Unknown vit no.[id number] PO 04/07/23 10/13/23 Unknown [ Plus Vitamin-Mineral] acetone (urine) test (Ketone Urine #50 ea 05/31/23 10/13/23 Unknown Test strips) blood sugar diagnostic (OneTouch #100 ea 05/31/23 10/13/23 Unknown Verio test strips) blood-glucose sensor (FreeStyle #3 ea 05/31/23 10/13/23 Unknown Dawna 3 Sensor device) lancets 33 gauge #150 ea 05/31/23 10/13/23 Unknown lamotrigine 200 mg tablet See Rx Instructions PO BID 07/21/23 10/15/23 Unknown zonisamide 100 mg capsule 300 mg PO BID 07/21/23 10/15/23 Unknown ferrous sulfate [Iron (ferrous PO 09/29/23 10/13/23 Unknown sulfate)] insulin glargine 100 unit/mL (3 See Rx Instructions subcut HS #45 09/29/23 10/15/23 Unknown mL) subcutaneous pen (Lantus mL Solostar U-100 Insulin) insulin lispro 100 unit/mL 1 sliding scale dose subcut TIDM 09/29/23 10/15/23 Unknown subcutaneous solution 90 days #90 mL Active Medications Generic Name Dose Route Start Last Admin Trade Name Freq PRN Reason Stop Dose Admin Lactated Ringer's 1,000 mls @ 125 mls/hr 10/15/23 16:39 10/15/23 17:36 Lr IV 11/14/23 16:38 999 mls/hr .Q8H PRN Administration L&D Protocol Protocol Past Medical History Medical History delivery Screen for STD (sexually transmitted disease) Depression with anxiety pt denies Migraines hx Exercise / Class Metabolic Activity II 4-5 Yardwork/Stairs/Walk up hill Past Family History Family History Grandmother (Paternal) Breast cancer Cervical cancer Colorectal cancer Mother Hypertension Grandfather (Maternal) Heart disease Grandfather (Paternal) Multiple sclerosis Grandmother (Maternal) Lung cancer Denies family history of Ovarian cancer Prostate cancer Myocardial infarction Past Surgical History Surgical History History of section History of arthroscopy of knee left S/P cholecystectomy Past Anesthesia History No Hx of Anesthesia Complications and No Family Hx of Anesthesia Complications History of PONV No Hx of PONV and No Hx of Motion Sickness Social History Smoking Status: Never smoker Do You Dip or Chew Tobacco: No Hx Alcohol Use: No Hx Substance Use: No Review of Systems denies fever/cough/ colds/ chest pain/ SOB/ MARGARET denies MARGARET Physical Exam Vital Signs Last Vital Signs Temp 36.4 C L 10/15/23 16:32 Pulse 102 H 10/15/23 16:18 Resp 20 10/15/23 16:32 BP 153/77 H 10/15/23 16:18 ENMT Mouth: no TMJ abnormality and no dentition abnormality Thyromental Distance: > or= 3.5 Finger Breadths Mallampati Class: II Neck neck extension not limited Respiratory normal respiratory effort; no respiratory distress Auscultation: lungs clear to auscultation bilaterally Cardiovascular Rate/Rhythm: regular rate and regular rhythm Neurologic moves all extremities Psychiatric Orientation: alert and oriented x 3 Testing Laboratory Results 10/15/23 17:03 Urine Color Yellow 10/15/23 Unknown Urine Appearance Clear (Clear) 10/15/23 Unknown Urine pH 5.5 (4.5-7.5) 10/15/23 Unknown Ur Specific [place] 1.009 (1.000-1.030) 10/15/23 Unknown Urine Protein Trace (Negative) H 10/15/23 Unknown Urine Glucose (UA) Negative (Negative) 10/15/23 Unknown Urine Ketones 4+ (Negative) H 10/15/23 Unknown Urine Nitrite Negative (Negative) 10/15/23 Unknown Ur Leukocyte Esterase Negative (Negative) 10/15/23 Unknown Urine WBC (Auto) 1-5 /hpf (0-5) 10/15/23 Unknown Urine RBC (Auto) 0-4 /hpf (0-4) 10/15/23 Unknown U Hyaline Cast (Auto) 1-5 /lpf (0-5) 10/15/23 Unknown U Epithel Cells (Auto) >30 /lpf (0-5) H 10/15/23 Unknown Urine Bacteria (Auto) Negative (Negative) 10/15/23 Unknown 10/15/23 16:40 POC Glucose 210 H
[2023-10-15] MEDS ORDERED: ceFAZolin 330 MG/ML 1 GM VIAL ONE (17:48)
[2023-10-15] MEDS ORDERED: ONDANSETRON INJ 2 MG/ML 2 ML VIAL ONE (18:20)
[2023-10-15] MEDS ORDERED: KETAMINE HCL 10MG/ML SYR ONE (18:28)
[2023-10-15] MEDS ORDERED: MIDAZOLAM HCL 1 MG/ML 2ML VIAL ONE (18:32)
[2023-10-15] MEDS ORDERED: PROPOFOL IV EMULSION 10 MG/ML 20 ML VIAL IV ONE (18:47)
[2023-10-15] MEDS ORDERED: SENNA 8.6 MG TAB PO PRN (19:08)
[2023-10-15] MEDS ORDERED: HYDROCORTISONE ACETATE 25 MG SUPP PR PRN (19:08)
[2023-10-15] MEDS ORDERED: DIPHTHERIA/TETANUS/PERTUSSIS Vaccine (Tdap, Age 7+yrs) 0.5mL SYR/VL IM ONE (19:08)
[2023-10-15] MEDS ORDERED: BENZOCAINE 20% SPRY 85 APPLN/85 GM CAN EXT PRN (19:08)
[2023-10-15] MEDS ORDERED: MAGNESIUM HYDROXIDE SUSP 30 ML UDC PO PRN (19:08)
[2023-10-15] MEDS ORDERED: NALBUPHINE HCL 5 MG in SYRINGE 0 ML IV PRN (19:19)
[2023-10-15] MEDS ORDERED: ePHEDrine sulfate 50 MG/ML AMP IV PRN (19:19)
[2023-10-15] MEDS ORDERED: NALOXONE HCL 1 MG in SODIUM CHLORIDE 0.9% 1,000 ML IV PRN (19:19)
[2023-10-15] MEDS ORDERED: ONDANSETRON INJ 2 MG/ML 2 ML VIAL IV PRN (19:19)
[2023-10-15] MEDS ORDERED: diphenhydrAMINE 50 MG/ML VIAL IV PRN (19:19)
[2023-10-15] MEDS ORDERED: LACTATED RINGER'S 500 ML IV PRN (19:19)
[2023-10-15] MEDS ORDERED: MoRPHine SULFATE PF 1 MG/ML 10 ML AMP/VIAL INT SPINAL ONE (19:19)
[2023-10-15] MEDS ORDERED: NALOXONE HCL 0.08 MG in SYRINGE 1.8 ML IV PRN (19:19)
[2023-10-15] MEDS ORDERED: HYDROmorphone INJ 0.5 MG/0.5 ML SYR IV PRN ×2 (19:19→20:12)
[2023-10-15] MEDS ORDERED: NALOXONE HCL 0.4 MG/1 ML VIAL/CARP IV PRN (19:19)
--- NOTE | 2023-10-15 19:24 | Operative Report ---
PG Post Operative Report Pre & Post Diagnosis Operation Date: 10/15/23 17:30 Pre-Op Diagnosis: pre-term labor, repeat section Post-Op Diagnosis: same as pre-op I identified the patient and participated in the time-out.: Yes Procedure Operation Date: 10/15/23 17:30 Actual Procedures p Section in for the of a live female child at 1832(Bilateral) - Phani Blair MD Surgeon Phani Blair MD Process Development Engineer Nursing staff Estimated Blood Loss 500 Findings Consistent with Post-Op Diagnosis Specimens Placenta Description of Procedure The patient was taken to the operating room after consents were ensured. Upon presentation, she was properly identified. Epidural was bolused the anesthesia. The patient was then prepped and draped in normal sterile fashion. Preprocedural timeout was performed. A Pfannenstiel incision was then made with a knife. This was carried down to underlying fascia with the Bovie. The fascia was nicked at the midline with a knife and extended laterally with pickups and Jenkins scissors. The superior aspect of the fascia was grasped with Kochers x2, elevated off the underlying rectus muscles with blunt dissection and Jenkins scissors. Inferior aspect of the fascia was grasped with Kochers x2, elevated off the underlying rectus muscles using blunt dissection. The midline was then entered bluntly, placed on stretch to provide adequate room for delivery. A low transverse uterine incision was then made with a knife. The uterine cavity and amniotic cavity entered bluntly, placed on stretch to provide adequate room for delivery. Baby was noted to be in cephalic presentation and the head was delivered without difficulty. Body and shoulders quickly followed. was noted to be vigorous soon after delivery and 30 second delayed cord clamping was initiated. Cord was double clamped and cut and taken of the awaiting nursery staff for evaluation. Cord blood was obtained. Attention was then turned to delivery of the placenta, which was delivered intact, 3-vessel cord, with gentle cord traction and uterine massage. The uterus was then exteriorized, wrapped in a wet lap and several passes were made, removing any remaining membranes with a dry lap. The hysterotomy was then reapproximated with 0 Vicryl continuous running locked stitch. A second imbricating layer with 0 Vicryl with continuous running stitch. The hysterotomy was then reinspected and hemostasis was noted. Posterior cul-de-sac cleaned of clots and debris's. The uterus was then returned to the maternal abdomen. The right and left paracolic gutters were cleaned of clots and debris. The muscles, subcutaneous and fascial layers were inspected to be hemostatic.The facia was reapproximated with 0 Vicryl in continuous stitch. The subcutaneous layers were reapproximated with 2-0 plain and continuous running stitch in 1 layers. The skin was reapproximated with 3-0 Vicryl with a subcuticular stitch. Needle, sponge, and instrument counts were correct at the completion of the case. Both mother and stable in the immediate post- delivery period I attest to the content of the Intraoperative Record and any orders documented therein. Any exceptions are noted below. OB Procedure charges OB Charges 21679
[2023-10-15] MEDS ORDERED: DC INTRASPINAL MORPHINE SCH (19:30)
[2023-10-15] MEDS ORDERED: NO NARCOTICS OR SEDATIVES SCH (19:30)
[2023-10-15] MEDS ORDERED: SODIUM CHLORIDE 0.9% 1,000 ML IV SCH (19:30)
--- NOTE | 2023-10-15 19:48 | Anesthesiology Progress Note ---
Date of Service October 15, 2023 Anesthesia Post Procedure Vital Signs Vital Signs: Temp Pulse Resp BP Pulse Ox 10/15/23 19:47 100 10/15/23 19:47 94 H 10/15/23 19:47 136/66 10/15/23 19:42 100 10/15/23 19:42 97 H 10/15/23 19:37 100 10/15/23 19:37 98 H 10/15/23 19:37 100 H 10/15/23 19:37 147/73 H 10/15/23 19:34 83 L 10/15/23 19:34 99 H 10/15/23 19:32 100 10/15/23 19:32 100 H 10/15/23 19:27 100 10/15/23 19:27 100 H 10/15/23 19:27 100 H 10/15/23 19:27 143/75 H 10/15/23 19:22 99 10/15/23 19:22 99 H 10/15/23 19:17 100 10/15/23 19:17 99 H 10/15/23 19:17 136/67 10/15/23 16:32 36.4 C L 20 10/15/23 16:18 102 H 153/77 H Transfer of Care Handoff Completed per policy Notes Mental Status: alert / awake / arousable and participated in evaluation Patient Amnestic to Procedure: Yes Nausea / Vomiting: adequately controlled Pain: adequately controlled Airway Patency, RR, SpO2: stable & adequate BP & HR: stable & adequate Hydration State: stable & adequate Neuraxial Anesthesia: was administered and sensory block is resolving Anesthetic Complications: no major complications apparent and Pt Satisfied with anesthetic care
[2023-10-15] MEDS: OXYTOCIN 30 UNITS/LR 1,003 ML IV SCH (20:06)
[2023-10-15] MEDS: KETOROLAC 30 MG/ML VIAL IV PRN (21:29)
[2023-10-15] MEDS ORDERED: DEXTROSE 50% 50 ML SYRINGE IV PRN ×2 (22:13→22:15)
[2023-10-15] MEDS ORDERED: GLUCOSE 10 TAB/TUBE PO PRN ×2 (22:13→22:15)
[2023-10-15] MEDS ORDERED: PHARMACY GLYCEMIC MGMT CONSULT PRN (22:13)
[2023-10-15] MEDS ORDERED: GLUCAGON FOR INJ 1 MG VIAL SQ PRN (22:13)
[2023-10-15] MEDS ORDERED: GLUCOSE 40% GEL 15 GM TUBE PO PRN ×2 (22:13→22:15)
[2023-10-15] MEDS ORDERED: CARBOHYDRATES FOR HYPOGLYCEMIA PO PRN (22:13)
[2023-10-15] MEDS ORDERED: GLUCAGON FOR INJ 1 MG VIAL IM PRN (22:15)
[2023-10-15] MEDS ORDERED: INSULIN ASPART PER UNIT CHARGE SC SCH (22:15)
[2023-10-15] MEDS: SIMETHICONE 80 MG CHEW PO SCH (22:46)
[2023-10-15] MEDS: NORTRIPTYLINE HCL 25 MG CAP PO SCH (23:18)
[2023-10-15] MEDS: lamoTRIgine 100 MG TAB PO SCH (23:19)
[2023-10-15] MEDS: ZONISAMIDE 100 MG CAPSULE PO SCH (23:19)
--- OUTSIDE RECORDS SUMMARY | 2023-10-15 23:19 | External Medical Summary | Summary of Care ---
Author Name Unknown Organization [facility] Address [address] [place] [address] Phone [phone] Care Team Providers Care Sap Analyst Name Role Phone Dayana Moeller Primary Care Provide r Reason for Visit * Reason Onset Date Comments Med Request 10/13/2023 Zonisamide 100 a nd 50 mg Encounter Details Date Type Department Care Team (Late st Contact Info) Description 10/13/2023 Telephone Neurology, [place] [address] [place] [address] Services, [facility] [address] [place] [address] Med Request (Zonisamide 100 and 50 mg) Allergies Active Allergy Reactions Criticality Noted Date Comments Fluoxetine High 12/07/2022 Other reaction(s): Rash, Hives Fluoxetine Hcl 06/22/2013 hives documented as of this encounter (statuses as of 10/13/2023) Medications Medication Sig Dispensed Refills Start Date End Date Status BD INSULIN SYRINGE 31G X 5/16" 0.5 ML MISCIndications:DM type 1, goal A1c below 7 ;as directed; 6-7 times per day 200 5 03/29/2008 Active B-D ULTRAFINE III (5MM) SHORT PEN MISCIndications:DM type 1, goal A1c below 7 6 injection daily 200 Pen 5 06/22/2013 Active LANTUS SOLOSTAR 100 UNIT/ML SUBQ SOLNIndications:DM type 1, goal A1c below 7 14 units daily 2 Pen 5 06/22/2013 Active Additional Information Patient taking differently: 36 UnitsSubcutaneousHS, 20 units at night, Reported on 10/13/2023 HUMALOG KWIKPEN 100 UNIT/ML SUBQ SOLNIndications:DM type 1, goal A1c below 7 I:cho of 1:10 plus corrrection factor of 1 unit for every 40 above 100, TDD of 50 6 Pen 5 11/08/2013 Active GLUCAGON EMERGENCY 1 MG IJ KITIndications:DM type 1, goal A1c below 7 as directed; 1 mg IM as needed with severe hypoglycemia 2 Kit 3 11/08/2013 Active ONETOUCH ULTRA BLUE STRPIndications:DM type 1, goal A1c below 7 6-7 times per day 225 Strip 5 02/27/2014 Active nortriptyline (PAMELOR) 75 MG Capsule at bedtime. 0 01/26/2018 Active Folic Acid 1 MG Oral Tablet Take 1 Tablet by mouth in the morning. 0 Active Ondansetron 4 MG Oral Tablet Disintegrating Place 1 Tablet on tongue daily as needed for Nausea. dissolve on tongue. 12 Tablet 0 01/05/2023 Active 6.75-0.2 MG Oral Tablet Take by mouth. 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 Take in addition to the 300 mg of Zonisamide to create 350 mg twice a day. 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 0 Active Aspirin 81 MG Oral Tablet Chewable (Aspirin Low Strength) Take 1 Tablet by mouth in the morning. 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 180 Capsule 5 10/13/2023 Active documented as of this encounter (statuses as of 10/13/2023) Active Problems Problem Noted Date Diagnosed Date Headache in 10/13/2023 Overview: Managed with nortriptyline for migraines Last Assessment & Plan: Considerations: The occurrence of migraine is modulated by fluctuations in estrogen levels. Most women (60 to 70 percent) with a history of migraine report improvement over the course of , approximately 5 percent describe worsening, and the remainder report no change Indications for neuroimaging and lumbar puncture are similar to those in non adults. Reviewed relief measures for headaches in include adequate hydration, small frequent meals, and Tylenol with caffeinated beverage as needed. Advise limiting Tylenol to no greater than 3000 mg per day. Pamelor (Nortriptyline) and its metabolites cross the human placenta and can be detected in cord blood. Tricyclic antidepressants may be associated with irritability, jitteriness, and convulsions (rare) in the . Recommendations: Recommend evaluation for Preeclampsia if greater than 20 weeks gestation. Recommend follow up with primary care provider or Neurology consult if headache symptoms worsen No contraindications for taking Fioricet as needed for severe headaches. Discussed that supplementation with magnesium 400 mg twice daily, co-q10 100 mg three times daily, and riboflavin (vitamin B2) 400 mg once daily may decrease the frequency of migraine headaches. These can be obtained over the counter at any pharmacy and are not contraindicated in . Avoid or monitor effects of possible headache triggers: Chocolate Cheese Deli meats Artificial sweeteners Family history of cleft palate 10/13/2023 Overview: Son with soft cleft palate which required surgery at 11 months Last Assessment & Plan: Recommend M anatomy scan Pre-existing type 1 diabetes mellitus in pregnan cy 10/12/2023 Overview: Diagnosed age 9 Follows with [facility] Managed with Lantus and Lispro 10/13/23 Reports blood sugars more controlled now then a few months ago No recent hemoglobin A1c for review. Reports hemoglobin A1c at the beginning of the was 8.0% EKG done 04/23/23 Last eye exam: "couple years ago" Reports compliance with aspirin 81 mg therapy Reports she checks her blood pressure daily. Denies history of chronic hypertension Last Assessment & Plan: CONSIDERATIONS: Explained to patient that pregnancies for women with pre-existing diabetes are at increased risk for multiple complications to fetus and mother, including but not limited to anomalies, miscarriage, growth issues, hypertensive disorders of , and complications. Many risks can be reduced with optimal glucose control. Advised insulin is the preferred treatment when blood sugar levels are not well controlled with diet and exercise. Oral agents (metformin preferred over glyburide) may be considered as an alternative to insulin on a case by case basis for those that were well controlled on these regimens prior to . RECOMMENDATIONS: Recommend a full ophthalmology exam within 1 year of (preferably in the first trimester due to increased risk for development or progression of diabetic retinopathy). Recommend baseline lab work ADAL (if not already done) with 24-hour urine protein or urine protein/creatinine ratio and serum AST/ALT/creatinine, TSH and hemoglobin A1C (goal less than 6%). Obtain a baseline EKG in anyone over age 30 years or with diabetes for greater than 10 years. Recommend monitoring blood sugars with daily fasting blood sugar (maintained at less than or equal to 95) and 1 hour postprandial measurements (maintained at less than or equal to 140). Medications should be adjusted to maintain these target values. Report levels to Endocrine weekly. Recommend nutrition consult with RDN. Lifestyle changes are also indicated including optimizing gestational weight gain and physical activity of 30 minutes per day, if not otherwise contraindicated in . Recommend low-dose aspirin 81 mg/day be initiated between 12 weeks and 28 weeks of gestation (optimally before 16 weeks of gestation) and continued until delivery. Recommend MFM ultrasound: For anatomy survey For echocardiography (completed) For growth assessment every 4 weeks Recommend initiating surveillance at 32 weeks and continue until delivery at 39 weeks. If poor blood sugar control, please refer to MFM. Recommend intrapartum monitoring every 1-2 hours (A2GDM) or every 4 hours (A1GDM) and treat with insulin if indicated. Previous delivery, antepartum condition or complication 10/12/2023 Overview: Previous C/S Repeat scheduled 11/19/23 [place] [facility] [place] Seizure disorder in 10/12/2023 Overview: Has upcoming appointment with [facility] Managed with Lamictal, Zonisamide, and Onfi Last seizure: July 2023 Had echocardiogram completed with Nina (no records to review) Last Assessment & Plan: CONSIDERATIONS: Explained to patient that more than 90% of women with epilepsy have a normal . Most women will have no alteration of their seizure pattern during , especially if medication noncompliance and sleep deprivation are minimized. Discussed that women with epilepsy have an increased risk for obstetrical complications including labor, delivery, , pre-eclampsia, , placental abruption, low weight infants, and lower scores, stillbirth, and maternal mortality. These risks can be minimized by preconception planning and careful management with anti-epileptic drugs during . Discussed that the overall rate of congenital abnormalities associated with maternal intake of AEDs is 6-8%, but there is no clear data indicating that any drug is without or has less risk in . It is therefore suggested that patients planning should be managed on the most effective anti-epileptic medications for their seizures. Monotherapy and the lowest possible drug dose may limit risk of teratogenicity. Discussed that we do not recommend making changes to anti-epileptic medication regimens for the purpose of reducing teratogenic risk in established . RECOMMENDATIONS: Recommend patient be monitored and medication managed/titrated by neurology throughout and period. Recommend Maternal Medicine ultrasound for anatomy Recommend echo be done at approximately 24 weeks for patients with current idiopathic epilepsy (currently on medications or seizure within past 3 years). Maternal Medicine ultrasound for growth at 28-30 weeks for patients who have been actively seizing during or are taking antiepileptic medications. Explained that for women taking carbamazepine or valproate, we suggest higher dose folic acid supplementation, 4 mg per day, prior to conception and throughout first trimester . May then decrease to 1mg daily folic acid. H/O delivery, currently 023 Overview: History of delivery at 36w6d due to PPROM Last Assessment & Plan: CONSIDERATIONS: Patient is at high risk to have a recurrent delivery (PTD): 3.6-fold higher with one prior PTD and the risk increases with the number of previous PTDs. Discussed modifiable risk factors (e.g., infections, tobacco/substance abuse, severe anemia, and poor nutrition). Previous studies showed that 17 alpha-hydroxyprogesterone (17P) could decrease the risk of recurrent PTD by up to 50% in women with previous spontaneous PTD prior to 37 weeks. However, follow-up studies failed to confirm these results and 17P has since been withdrawn from the market by the FDA due to lack of efficacy. Depression with anxiety 04/12/2023 Gastroesophageal reflux disease 04/12/2023 Menorrhagia 04/12/2023 History of cholecystectomy 04/12/2023 Generalized abdominal pain 01/03/2018 ADVANCE DIRECTIVE INFORMATION 12/24/2014 Overview: No, Advance Directive brochure offered , patient declined. Migraine 03/20/2013 Anxiety state 08/19/2011 Supervision of other high-risk 011 Overview: ICD-10 update of inactive term Convulsions 12/30/2009 Type 1 diabetes mellitus wit h hemoglobin A1c goal of less than 7.0% 08/15/2009 Overview: Per Diabetes Taxonomy. 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 ICD-10 update of inactive term documented as of this encounter (statuses as of 10/13/2023) Immunizations No known immunizationsdocumented as of this encounter Social History Tobacco Use Types Packs/Day Years Used Date Smoking Tobacco: Never Smokeless Tobacco: Never Alcohol Use Standard Drinks/Week Comments Not Currently 0 (1 standard drink = 0.6 oz pur e alcohol) Estimated Date of Delivery Comme nts Yes 11/23/2023 Based on last me nstrual period of 02/16/2023 (Exact Date) Sex and Gender Information Value Date Recorded Sex Assigned at Not on file Gender Identity Not on file Sexual Orientation Not on file Job Start Date Occupation Industry Not on file Not on file Not on file documented as of this encounter Miscellaneous Notes * Telephone Encounter - Grace Mckinney RN - 10/13/2023 3:33 PM EST Called to patient to make her aware that Dr Dye send a new script over today to [facility] in [place]. Appreciative of the call. * Telephone Encounter - Dacia Robertson OSA - 10/13/2023 1:28 PM EST Patient's daughter by mistake and threw out the medication for her seizures . Patient is . Provider: Karley Lentz - medication signed by Dr. Dukes Patient is without medication of the [id number] mg and has been using the [address] of it. Patient is now without both medications. Is asking if she can get a new prescription sent in for it Please advise patient Thank you documented in this encounter Plan of Treatment Upcoming Encounters Date Type Department Care Team (Late st Contact Info) Description 10/15/2023 1:40 PM EST Office Visit Neurology [facility] [place] [facility] [place] [id number] Narcisa Dye MD [address] [facility] [place] [id number] 10/19/2023 6:45 AM EST Pharmacy Neurology, [place] [address] [place] [phone] [place], Pharmacist Neurology [address] [place] [id number] 10/20/2023 1:00 PM EST Office Visit Director Selection And Administration Obstetrics Maternal Medicine, [place] [address] [place] [address] Hector Oneal MD [address] [place] [address] 10/20/2023 1:00 PM EST Imaging [facility], [place] [address] [place] [address] Health Maintenance Due Date Last Done Comments COVID-19 Vaccine (#1) 1989 Pneumococcal Vaccine: Pediatrics (0 to 5 Years) and At-Risk Patients (6 to 64 Years) (1 - PCV) 1995 Depression Screening 2001 HIV Screening 2004 Hepatitis C Screening 2007 Pap Smear 2010 DTaP,Tdap,and Td Vaccines (3 - Tdap) 06/15/2011 06/15/2001, 06/15/2001, 07/22/1993 Diabetic Eye Exam 06/30/2013 06/30/2012 Diabetic Foot Exam 06/22/2014 06/22/2013, 06/30/2012 Cervical Cancer Screening 2019 HPV/Co-Test 2019 GFR 08/02/2021 08/02/2020, 05/18, 03/01/2018, Additional history exists Influenza Vaccine (FLU shot) (#1) 2023 Hepatitis B Completed 12/26/1999, 06/18, 05/16/1999 MENINGOCOCCAL (MENACTRA/MENVEO) Completed 04/05/2007 Albumin/Creatinine Ratio Discontinued 012, 05/09/2010, 03/21/2009, Additional history exists GARDASIL-HPV IMMUNIZATION SERIES Aged Out No longer eligible based on patient's age to complete this topic documented as of this encounter Medical Devices Not on filedocumented as of this encounter Advance Directives Latest Code Status on File Code Status Date Activated Date Inactivated Comments Full Code 02/12/2012 9:47 PM 02/17/2012 12:01 AM This order reflects the patients wishes and were consensually agreed upon. Care Teams Sap Analyst Relationship Specialty Start Date End Date Dayana Moeller CRNP [address] [place], [place] [address] [id number] PCP - General Nurse Practitioner 01/03/18 documented as of this encounter
--- OUTSIDE RECORDS SUMMARY | 2023-10-15 23:19 | External Medical Summary | Summary of Care ---
Author Name Unknown Organization [facility] Address [address] [place] [address] Phone [phone] Care Team Providers Care Detective Bowling Alley Name Role Phone Dayana Moeller Primary Care Provide r Reason for Visit * Reason Onset Date Comments Med Request 10/13/2023 Zonisamide 100 a nd 50 mg Encounter Details Date Type Department Care Team (Late st Contact Info) Description 10/13/2023 Telephone Neurology, [place] [address] [place] [address] Services, [facility] [address] [place] [address] Med Request (Zonisamide 100 and 50 mg) Allergies Active Allergy Reactions Criticality Noted Date Comments Fluoxetine High 12/07/2022 Other reaction(s): Rash, Hives Fluoxetine Hcl 06/22/2013 hives documented as of this encounter (statuses as of 10/14/2023) Medications Medication Sig Dispensed Refills Start Date [...] as of this encounter (statuses as of 10/14/2023) Active Problems Problem Noted Date Diagnosed Date [...] 11/19/23 She would prefer to deliver at [facility] Seizure disorder in 10/12/2023 Overview: Has upcoming appointment with Neurology [facility] Managed with Lamictal, Zonisamide, and Onfi [...] as of this encounter (statuses as of 10/14/2023) Resolved Problems Problem Noted Date Diagnosed Date Resolved Date Type 1 diabetes mellitus wit h hemoglobin A1c goal of less than 7.0% 08/15/2009 Overview: Per Diabetes Taxonomy. ICD-10 update of inactive term documented as of this encounter (statuses as of 10/14/2023) Immunizations No known immunizationsdocumented as of this [...] encounter Miscellaneous Notes * Telephone Encounter - Daniela Fagan PHARM Tech - 10/14/2023 10:02 AM EST Called pharmacy for another reason, was not sure if pt would be needing refll on zonisamide 50 mg. Pharmacy advised refill remaining. Thank You, Daniela Fagan [facility] Poll Clerk III [facility] ([facility]) (Formerly Telepharmacy) 10/14/2023, 10:08 AM * Telephone Encounter - Grace Mckinney RN - 10/13/2023 3:33 PM EST Called to patient to make her aware that Dr Dye send a new script over today to [facility] in [place]. Appreciative of the call. * Telephone Encounter - Dacia Robertson OSA - 10/13/2023 1:28 PM EST Patient's daughter by mistake and threw out the medication for her seizures . Patient is . Provider: Karley Lentz - medication signed by Dr. Dukes Patient is without medication of the [id number] mg and has been using the [address] of it. Patient is now without both medications. Is asking if she can get a new prescription sent in for it Please advise patient Thank you documented in this encounter Plan of Treatment Upcoming Encounters Date Type Department Care Team (Late st Contact Info) Description 10/15/2023 1:40 PM EST Office Visit Neurology [facility] [place] [address] [facility] [place] [address] Narcisa Dye MD [address] [facility] [place], [place] [address] 10/19/2023 6:45 AM EST Pharmacy Neurology, [place] [address] [place] [phone] [place], Pharmacist Neurology [address] [place] [id number] 10/20/2023 1:00 PM EST Office Visit Front Services Agent Obstetrics Maternal Medicine, [place] [address], [place] [phone] Hector Oneal MD [address] [place] [address] 10/20/2023 1:00 PM EST Imaging Radiology [facility], [place] [address], [place] [phone] Health Maintenance Due Date Last Done Comments [...] Not on filedocumented as of this encounter Visit Diagnoses Diagnosis Seizure disorder, complex partial, 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 Care Teams Detective Bowling Alley Relationship Specialty Start Date End Date Dayana Moeller CRNP [address] [place] [address] [place] [address] PCP - General Nurse Practitioner 01/03/18 documented as of this encounter
--- OUTSIDE RECORDS SUMMARY | 2023-10-15 23:19 | External Medical Summary | Summary of Care ---
Author Name Unknown Organization [facility] Address [address] [place] [address] Phone [phone] Care Team Providers Care Soda Room Operator Name Role Phone Dayana Moeller Primary Care Provide r Reason for Visit * Reason Onset Date Comments Medication Question 10/14/2023 Encounter Details Date Type Department Care Team (Late st Contact Info) Description 10/14/2023 Telephone Neurology, [place] [address] [place] [address] Luther Dukes, DO [address] [place] [address] Medication Question Allergies Active Allergy Reactions Criticality Noted Date [...] 11 months Last Assessment & Plan: Recommend MFM anatomy scan Pre-existing type 1 diabetes mellitus [...] 11/19/23 She would prefer to deliver at [facility] Seizure disorder in 10/12/2023 Overview: Has upcoming appointment with Neurology [facility] Managed with Lamictal, Zonisamide, and Onfi [...] placental abruption, low weight infants, and lower infant scores, stillbirth, and maternal mortality. These risks [...] - Daniela Fagan PHARM Tech - 10/14/2023 9:55 AM EST Received faxed refill request for lamotrigine 25 mg. Called pt and she is not needing refill. Thank You, Daniela Fagan [facility] Poly Packer And Heat Sealer III [facility] ([facility]) (Formerly Telepharmacy) 10/14/2023, 10:00 AM documented in this encounter Plan of Treatment Upcoming Encounters Date Type Department Care Team (Late st Contact Info) Description 10/15/2023 1:40 PM EST Office Visit Neurology [facility] [address] [facility] [place] [address] Narcisa Dye MD [address] [place] [address] 10/19/2023 6:45 AM EST Pharmacy Neurology, [address] [phone] [place], Pharmacist Neurology [address] [place] [address] 10/20/2023 1:00 PM EST Office Visit Rubber Press Tender Obstetrics Maternal Medicine, [place] [address], [place] [phone] Hector Oneal MD [address] [place] [address] 10/20/2023 1:00 PM EST Imaging Radiology [facility] [address] [place] [address] Health Maintenance Due Date Last Done Comments [...] and were consensually agreed upon. Care Teams Soda Room Operator Relationship Specialty Start Date End Date Dayana Moeller CRNP [address] [place] [address] [place] [id number] PCP - General Nurse Practitioner 01/03/18 documented as of this encounter
[2023-10-15] MEDS: LACTATED RINGER'S 1,000 ML IV SCH (23:25)
[2023-10-15] MEDS: DOCUSATE SODIUM 100 MG CAP PO SCH (23:33)
[2023-10-15] MEDS: LANTUS PER UNIT CHARGE SC SCH (23:47)
[2023-10-16] MEDS ORDERED: INSULIN ASPART PER UNIT CHARGE SC SCH
[2023-10-16] MEDS: LACTATED RINGER'S 1,000 ML IV SCH ×3 (03:07→23:33)
[2023-10-16] MEDS: KETOROLAC 30 MG/ML VIAL IV PRN (03:13)
[2023-10-16] MEDS ORDERED: Nursing to Pharmacy Communication SCH (05:00)
[2023-10-16] MEDS: OXYTOCIN 30 UNITS/LR 1,003 ML IV SCH ×3 (05:18→23:40)
[2023-10-16 07:43] LABS: Basophils # (auto) 0.02 K/uL (0.00-0.20); Basophils % (auto) 0.1 %; Hemoglobin 10.5 g/dl (12.0-16.0); Immature Granulocytes # (auto) 0.24 K/uL (0.01-0.20); Immature Granulocytes % (auto) 1.7 %; Lymphocytes # (auto) 0.98 K/uL (1.20-3.40); Lymphocytes % (auto) 7.1 %; Mean Corpuscular Hemoglobin 32.3 pg (25.0-34.0); Mean Corpuscular Hgb Conc 33.9 g/dL (32.0-36.0); Mean Corpuscular Volume 95.4 fL (80.0-100.0); Mean Platelet Volume 10.6 fL (9.4-12.4); Monocytes # (auto) 0.92 K/uL (0.11-0.59); Monocytes % (auto) 6.6 %; Neutrophils # (auto) 11.73 K/uL (1.40-6.50); Neutrophils % (auto) 84.5 %; Platelet Count 243 K/uL (130-400); RDW Coefficient of Variation 13.8 % (11.5-14.5); RDW Standard Deviation 47.3 fL (36.4-46.3); Red Blood Count 3.25 M/uL (4.20-5.40); White Blood Count 13.89 K/ul (4.8-10.8)
[2023-10-16] MEDS: SIMETHICONE 80 MG CHEW PO SCH ×4 (08:19→22:10)
[2023-10-16] MEDS: DOCUSATE SODIUM 100 MG CAP PO SCH ×2 (08:19→22:08)
[2023-10-16] MEDS: PRENATAL VITAMIN 1 TAB PO SCH (08:20)
[2023-10-16] MEDS: FERROUS SULFATE 325 MG TAB PO SCH (08:20)
[2023-10-16] MEDS: PANTOprazole 40 MG TAB PO SCH (08:20)
[2023-10-16] MEDS: lamoTRIgine 100 MG TAB PO SCH ×2 (08:21→22:08)
[2023-10-16] MEDS: ZONISAMIDE 100 MG CAPSULE PO SCH ×2 (08:23→22:07)
[2023-10-16] MEDS ORDERED: LANTUS PER UNIT CHARGE SC ONE (08:30)
--- NOTE | 2023-10-16 09:02 | Obstetrical Progress Note ---
Date of Service October 16, 2023 Assessment & Plan (1) Encounter for care and examination after delivery: Day 1 status post repeat . Patient is doing well and denies any concerns. Patient is a type I diabetic and blood sugars have been elevated. Discussed with patient that her blood pressure will be a little bit more difficult to control with the betamethasone that she received. Pharmacy is adjusting insulin dosing as needed. Will contact medicine as needed (2) Type 1 diabetes mellitus during : Trimester: third trimester Qualified Code(s): O24.013 - Pre- existing type 1 diabetes mellitus, in , third trimester (3) Seizures: Subjective Ambulation: ambulating normally Voiding: no voiding problems Passing Gas:: Yes Diet Tolerance:: regular diet Lochia:: Moderate Feeding Type:: breast feeding Physical Exam Constitutional WD/WN, vitals as above Respiratory normal respiratory effort; no respiratory distress and no labored breathing Gastrointestinal (Abdomen) Inspection/Auscultation: abdomen normal to inspection; abdomen not distended Percussion/Palpation: abdomen soft; abdomen nontender, no guarding and abdomen not rigid Genitourinary OB Exam Abdomen: + fundal height Fundus: + firm and + relation to umbilicus (Below); not tender or not boggy Incision clean dry and intact Results & Data Vital Signs (Past 12 Hours) Vital Signs Temp Pulse Pulse Pulse Resp BP BP 10/16/23 07:50 20 10/16/23 07:35 36.6 C 80 18 124/74 10/16/23 05:03 16 10/16/23 04:00 18 10/16/23 03:03 36.7 C 87 18 127/70 10/16/23 02:00 18 10/16/23 01:00 18 10/16/23 00:00 20 10/15/23 22:45 36.6 C 102 H 20 123/69 10/15/23 21:35 10/15/23 21:35 103 H 10/15/23 21:32 10/15/23 21:32 99 H 10/15/23 21:27 10/15/23 21:27 99 H 10/15/23 21:27 134/66 10/15/23 21:22 10/15/23 21:22 102 H 10/15/23 21:17 18 10/15/23 21:17 10/15/23 21:17 100 H 10/15/23 21:17 134/63 10/15/23 21:12 10/15/23 21:12 101 H 10/15/23 21:07 10/15/23 21:07 96 H 10/15/23 21:07 96 H 10/15/23 21:07 131/65 10/15/23 21:02 10/15/23 21:02 96 H Pulse Ox O2 Del Method 10/16/23 07:50 97 10/16/23 07:35 98 Room Air 10/16/23 05:03 94 10/16/23 04:00 96 10/16/23 03:03 96 Room Air 10/16/23 02:00 98 10/16/23 01:00 98 10/16/23 00:00 98 10/15/23 22:45 96 Room Air 10/15/23 21:35 89 L 10/15/23 21:35 10/15/23 21:32 98 10/15/23 21:32 10/15/23 21:27 99 10/15/23 21:27 10/15/23 21:27 10/15/23 21:22 99 10/15/23 21:22 10/15/23 21:17 10/15/23 21:17 98 10/15/23 21:17 10/15/23 21:17 10/15/23 21:12 99 10/15/23 21:12 10/15/23 21:07 98 10/15/23 21:07 10/15/23 21:07 10/15/23 21:07 10/15/23 21:02 99 10/15/23 21:02
[2023-10-16] MEDS: INSULIN ASPART PER UNIT CHARGE SC SCH ×2 (09:08→12:55)
--- NOTE | 2023-10-16 10:21 | Pharmacy Report ---
Pharmacy Glycemic Short Note 2 - Date of Service October 16, 2023 - Glycemic Short BSG Results (Last 24 hours): 10/15/23 10/15/23 10/15/23 16:40 21:24 23:38 POC Glucose 210 H 273 H 297 H 10/16/23 08:00 POC Glucose 236 H OUTPATIENT ANTIDIABETIC REGIMEN: * Prior to delivery: Lantus 16 units SC HS, Humalog CHO 1:10, CF 40 >140mg/dl ASSESSMENT: * 33 year old female, POD 1 repeat section, type 1 diabetic. * Patient received betamethasone 12mg IM yesterday, contributing to hyperglycemia. * Patient received 20 units Lantus last night, AM BSG remains elevated at 236mg/dl * Give additional dose of Lantus now to cover steroid effects and tighten CR slightly until steroids wear off. PLAN FOR INPATIENT GLYCEMIC CONTROL: * Basal insulin * Lantus 20 units SQ BID today, then likely back to home dose tomorrow of 16 units HS * Bolus insulin * NovoLog per scale ACHS or Q6hrs while NPO * Goal Range: Low 110 mg/dL - High 140 mg/dL * Correction Factor: 30 mg/dL/unit * Nutritional / Prandial insulin per carb ratio of 1 unit per 8 grams CHO consumed
--- NOTE | 2023-10-16 11:56 | Communication Note ---
Date of Service: October 16, 2023 Discussed w/ REGENERATOR OPERATOR provider this morning, Dr Blair. Consult for hospitalist placed for glycemic management in DM I last evening, however noting pharmacy already for glycemic management as well. Called to notify/touch base this morning and consult to be cancelled by REGENERATOR OPERATOR for hospitalist group. Please reach out with any questions/concerns or assistance needed.
[2023-10-16] MEDS ORDERED: ONDANSETRON INJ 2 MG/ML 2 ML VIAL IV PRN (13:20)
[2023-10-16] MEDS ORDERED: HYDROmorphone INJ 0.5 MG/0.5 ML SYR IV PRN (13:20)
[2023-10-16] MEDS ORDERED: KETOROLAC 30 MG/ML VIAL IV PRN (13:20)
[2023-10-16] MEDS ORDERED: PROMETHAZINE HCL 25 MG in SODIUM CHLORIDE 0.9% 50 ML IV PRN (13:20)
[2023-10-16] MEDS ORDERED: diphenhydrAMINE Capsule 25 MG CAP PO PRN (13:20)
[2023-10-16] MEDS: oxyCODONE/ACETAMINOPHEN 5mg/325mg TAB PO PRN ×3 (13:49→22:11)
[2023-10-16] MEDS: IBUPROFEN 600 MG TAB PO PRN ×3 (13:50→22:07)
[2023-10-16] MEDS ORDERED: INSULIN ASPART PER UNIT CHARGE SC ONE (15:30)
[2023-10-16] MEDS: INSULIN LISPRO 100 UNITS/ML VIAL SC SCH (17:44)
[2023-10-16] MEDS ORDERED: bisacodyL 5 MG TABEC PO SCH (20:00)
[2023-10-16] MEDS ORDERED: LANTUS PER UNIT CHARGE SC SCH (21:02)
[2023-10-16] MEDS: NORTRIPTYLINE HCL 25 MG CAP PO SCH (22:10)
[2023-10-16] MEDS ORDERED: diphenhydrAMINE Capsule 25 MG CAP PO ONE (23:39)
[2023-10-17] MEDS: INSULIN LISPRO 100 UNITS/ML VIAL SC SCH ×5 (00:01→21:20)
[2023-10-17] MEDS: LANTUS PER UNIT CHARGE SC SCH (01:40)
[2023-10-17] MEDS ORDERED: INSULIN LISPRO 100 UNITS/ML VIAL SC ONE (02:00)
[2023-10-17] MEDS: oxyCODONE/ACETAMINOPHEN 5mg/325mg TAB PO PRN (05:16)
[2023-10-17] MEDS: IBUPROFEN 600 MG TAB PO PRN (05:16)
[2023-10-17 06:55] LABS: Hematocrit (blood only) 31.1 % (37.0-47.0); Hemoglobin 10.6 g/dl (12.0-16.0)
--- NOTE | 2023-10-17 07:19 | Obstetrical Progress Note ---
Date of Service October 17, 2023 Assessment & Plan (1) Encounter for care and examination after delivery: (2) Type 1 diabetes mellitus during : Trimester: third trimester Qualified Code(s): O24.013 - Pre-existing type 1 diabetes mellitus, in , third trimester Plan 33 yo POD 2from [facility]LTCS for PTL, doing well -Still needs to pass gas. Discussed abd binder and ambulation -O+/rubella immune/ -f/u 6 weeks for appt. Baby transferred last night for BG issues. Mom's BG starting to normalize better, still some pain control issues so if able to get better today, may dc so that can be with baby Subjective Ambulation: ambulating normally Voiding: no voiding problems Passing Gas:: No (feels like has to) Diet Tolerance:: regular diet Lochia:: Small Feeding Type:: breast feeding Pain meds helping but still having good amount of pain Review of Systems Denies fevers, chills, n/v, HERRERA, CP, SOB Physical Exam Constitutional WD/WN, vitals as above no acute distress Respiratory normal respiratory effort, lungs clear to auscultation Cardiovascular RRR, no murmur, no edema Gastrointestinal (Abdomen) Percussion/Palpation: abdomen soft; abdomen nontender fundus firm at umbilicus and NT Incision c/d/i Musculoskeletal BLE symmetric, nonerythematous, nontender Results & Data Vital Signs (Past 12 Hours) Vital Signs Temp Pulse Resp BP Pulse Ox O2 Del Method 10/17/23 00:10 97.5 F L 89 16 122/80 97 Room Air 10/16/23 19:37 97.9 F 86 18 120/76 97 Room Air
[2023-10-17] MEDS: PANTOprazole 40 MG TAB PO SCH (08:54)
[2023-10-17] MEDS: DOCUSATE SODIUM 100 MG CAP PO SCH ×2 (08:54→21:19)
[2023-10-17] MEDS: PRENATAL VITAMIN 1 TAB PO SCH (08:54)
[2023-10-17] MEDS: SIMETHICONE 80 MG CHEW PO SCH ×4 (08:54→21:22)
[2023-10-17] MEDS: ZONISAMIDE 100 MG CAPSULE PO SCH ×2 (08:55→21:22)
[2023-10-17] MEDS: lamoTRIgine 100 MG TAB PO SCH ×2 (08:55→21:21)
[2023-10-17] MEDS: oxyCODONE/ACETAMINOPHEN 5mg/325mg TAB PO SCH ×4 (08:56→21:24)
[2023-10-17] MEDS: FERROUS SULFATE 325 MG TAB PO SCH (08:59)
[2023-10-17] MEDS: IBUPROFEN 600 MG TAB PO SCH ×3 (09:47→21:23)
[2023-10-17] MEDS ORDERED: LANTUS PER UNIT CHARGE SC SCH (11:30)
[2023-10-17] MEDS ORDERED: LANTUS PER UNIT CHARGE SC ONE (11:30)
[2023-10-17] MEDS ORDERED: bisacodyL 10 MG SUPP PR PRN (19:08)
[2023-10-17] MEDS: CARBOHYDRATES FOR HYPOGLYCEMIA PO PRN ×2 (20:29→20:40)
[2023-10-17] MEDS: NORTRIPTYLINE HCL 25 MG CAP PO SCH (21:22)
[2023-10-18] MEDS: oxyCODONE/ACETAMINOPHEN 5mg/325mg TAB PO SCH ×3 (01:53→09:35)
[2023-10-18] MEDS: IBUPROFEN 600 MG TAB PO SCH ×2 (04:52→09:35)
[2023-10-18] MEDS: DOCUSATE SODIUM 100 MG CAP PO SCH (07:57)
[2023-10-18] MEDS: FERROUS SULFATE 325 MG TAB PO SCH (07:57)
[2023-10-18] MEDS: SIMETHICONE 80 MG CHEW PO SCH (07:57)
[2023-10-18] MEDS: PRENATAL VITAMIN 1 TAB PO SCH (07:57)
--- NOTE | 2023-10-18 08:06 | Obstetrical Progress Note ---
Date of Service October 18, 2023 Assessment & Plan (1) Encounter for care and examination after delivery: (2) Type 1 diabetes mellitus during : Trimester: third trimester Qualified Code(s): O24.013 - Pre- existing type 1 diabetes mellitus, in , third trimester Plan 33 yo POD 2from [facility] for PTL, doing well -meeting all pp milestones, feeling much better -O+/rubella immune/ -f/u 6 weeks for appt. Stable for dc home today Subjective Ambulation: ambulating normally Voiding: no voiding problems Passing Gas:: Yes Diet Tolerance:: regular diet Lochia:: Small Feeding Type:: breast feeding Pain well controlled Review of Systems Denies fevers, chills, n/v, HERRERA, CP, SOB Physical Exam Constitutional WD/WN, vitals as above no acute distress Respiratory normal respiratory effort, lungs clear to auscultation Cardiovascular RRR, no murmur, no edema Gastrointestinal (Abdomen) Percussion/Palpation: abdomen soft; abdomen nontender fundus firm at umbilicus and NT Incision c/d/i Musculoskeletal BLE symmetric, nonerythematous, nontender Results & Data Vital Signs (Past 12 Hours) Vital Signs Temp Pulse Resp BP Pulse Ox O2 Del Method 10/18/23 07:21 97.9 F 80 18 131/78 96 Room Air 10/18/23 02:45 97.3 F L 85 16 120/72 96 Room Air
[2023-10-18] MEDS: INSULIN LISPRO 100 UNITS/ML VIAL SC SCH (08:07)
[2023-10-18] MEDS: ZONISAMIDE 100 MG CAPSULE PO SCH (08:41)
[2023-10-18] MEDS: PANTOprazole 40 MG TAB PO SCH (08:42)
[2023-10-18] MEDS: lamoTRIgine 100 MG TAB PO SCH (08:43)
[2023-10-18] MEDS ORDERED: LANTUS PER UNIT CHARGE SC SCH ×2 (21:00)
== END 2023-10-18 10:05 | disposition home or self-care (01) | DRG 787 ==
LOC: OPB 16:13 → 4S1 16:14 → 4E2 23:09